=== PATIENT | male | born 1955 | race African-American/Black ===

== ENCOUNTER → 2020-07-26 11:02 | Outpatient (BNVA) | payer OTHER, SELFPAY | PROVIDERS: Visit Provider Urology | DX: R39.12 Poor urinary stream (principal); R33.9 Retention of urine, unspecified; M25.551 Pain in right hip | CPT/HCPCS: 99212 ==

== ENCOUNTER 2021-03-20 14:39 | Observation (INO) | payer OTHER, SELFPAY ==
--- NOTE | ~2021-03-20 | CT_ITS ---
EXAMINATION: CT ABDOMEN WITHOUT AND WITH CONTRAST CLINICAL INFORMATION: Liver lesion. Unable to do MRI. COMPARISON: 03/20/2021 TECHNIQUE: Multidetector volumetric imaging was performed through the abdomen before and after administration of 85 mL of Omnipaque 350 IV contrast. Three-phase liver protocol utilized. Sagittal and coronal reformatted images were obtained on the technologist's workstation. This CT examination was performed using dose optimization techniques as appropriate, variously including the following: *Automated exposure control *Adjustment of mA and/or kV according to patient size (this includes techniques or standardized protocols for targeted exams where dose is matched to indication/reason for exam; i.e. extremities or head) *Use of iterative reconstruction technique DLP: 977 mGy-cm. FINDINGS: Motion somewhat limits the evaluation. LUNG BASES: Bibasilar atelectasis. Tiny right pleural effusion noted. LIVER, GALLBLADDER, AND BILIARY TREE: The liver is normal in size, shape, and attenuation. There is mild central biliary ductal dilatation noted. The gallbladder is absent. Within the left lobe of the liver, there is redemonstration of a simple cyst measuring 5.1 cm. Within the right lobe of the liver in segment 7, redemonstration of the hypoattenuating lesion measuring 3.4 cm. The 4 contrast this measures approximately 5 Hounsfield units. While this is typical for a cyst, there is some peripheral nodular enhancement seen during the arterial phase. There is additional filling of contrast on the more delayed phase, suggestive of a hemangioma. No suspicious characteristics. Also noted during the arterial phase are multiple additional areas of arterial hyperenhancement throughout the liver, with the largest area measuring up to 3 cm centrally in segment 8, as seen on series 4 image 32. On the portal venous phase these blend with the adjacent liver parenchyma, suggesting transient hepatic attenuation difference. PANCREAS: Unremarkable. SPLEEN: Unremarkable. ADRENAL GLANDS: The right adrenal gland is unremarkable. Unchanged 2.2 cm lipid rich left adrenal adenoma. KIDNEYS AND URETERS: The kidneys are normal in size, shape, and attenuation. No hydronephrosis, hydroureter, or calculi seen. No perinephric stranding. GASTROINTESTINAL TRACT: The stomach is unremarkable. Normal caliber of the small bowel. There is no obstruction. No colonic wall thickening or inflammatory change. No free air or free fluid. ABDOMINAL WALL: No significant hernia is appreciated. LYMPH NODES: Normal. VASCULAR: Unremarkable. OSSEOUS STRUCTURES: No acute or suspicious osseous abnormality. Mild degenerative changes of the spine. CT/CT liver 3 phase IMPRESSION: Somewhat motion limited evaluation. That said, the lesion in question at the dome of the right lobe of the liver likely represents a hemangioma. There are additional areas of arterial hyperenhancement scattered throughout the liver which likely represent transient hepatic attenuation difference. Left hepatic cyst again noted. Left adrenal lipid rich adenoma.
--- NOTE | ~2021-03-20 | CT_ITS ---
EXAMINATION: CT ANGIOGRAM CHEST CLINICAL INFORMATION: Hypotensive. Question pneumonia. Question dissection. COMPARISON: None TECHNIQUE: Multiple axial images were obtained through the chest after the administration of 70 mL of Omnipaque 350 intravenous contrast. Extensive vascular post-processing including two-dimensional and three-dimensional reformatted images were created and reviewed on an independent workstation. This CT examination was performed using dose optimization techniques as appropriate, variously including the following: *Automated exposure control *Adjustment of mA and/or kV according to patient size (this includes techniques or standardized protocols for targeted exams where dose is matched to indication/reason for exam; i.e. extremities or head) *Use of iterative reconstruction technique DLP: 591 mGy-cm FINDINGS: Vascular: The thoracic aorta is tortuous but normal in caliber. No aneurysm or dissection is seen. Great vessels are normal. The pulmonary arteries appear patent. No large or central pulmonary embolism is seen. The abdominal aorta is normal in caliber. The celiac axis, SMA and JULIO C are patent. There is narrowing of the proximal celiac axis just beyond its origin, question related to the diaphragmatic pleura. There is an accessory right lower pole renal artery. There is a single left renal artery. Renal arteries are patent. The common, internal and external iliac and common femoral arteries are patent. The femoral bifurcations are patent. CHEST: The lungs are clear. No evidence of pneumonia is seen. The esophagus is slightly distended and filled with fluid. The heart does not appear enlarged. There is no pericardial effusion. There are no enlarged hilar or mediastinal lymph nodes. There is the thyroid gland is enlarged and heterogeneous in attenuation suggestive of a goiter. There is no pleural effusion or pleural thickening or pneumothorax. No chest wall mass is seen. Abdomen and pelvis: There is a large amount of stool in the distal colon suggestive of severe constipation. The left colon and sigmoid colon are slightly dilated measuring up to 5.5 cm. The proximal colon does not appear dilated. There is a mild wall thickening of the proximal colon questionable for mild colitis. This appears greatest and most irregular in the cecum and imaging follow-up to exclude a mass should be considered. The stomach and small bowel appears dilated and fluid-filled. No evidence of pneumatosis is seen. No mesenteric air or portal venous air is seen. The appendix is unremarkable. There is a 4 cm cyst in the left lobe of the liver. There is low-attenuation lesion in the dome of the right lobe of the liver measuring 2.2 x 3 cm not compatible with a simple cyst and difficult to characterize on arterial phase imaging only. The liver is otherwise unremarkable. The gallbladder has been removed. The pancreas is unremarkable. The spleen is unremarkable. There is a 1.4 x 2 cm left adrenal nodule. Hounsfield units postcontrast measure 44 which is indeterminate. The right adrenal gland is normal-appearing. There is a 1 cm low-attenuation lesion in the mid pole of the right kidney suggestive of a cyst. The kidneys are otherwise unremarkable. The bladder is not optimally distended. There appears to be diffuse bladder wall thickening. The prostate gland is enlarged and measures 4 x 5 cm. No hernia. No ascites. There are degenerative changes of the spine. CT/CT angio chest aorta IMPRESSION: No aneurysm or dissection is seen. 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 Small accessory right lower pole renal artery. CHEST: Enlarged thyroid goiter. No evidence of pneumonia. Slightly dilated fluid-filled esophagus. Abdomen and pelvis: Severe constipation/obstipation of the left colon and sigmoid colon which appear very dilated and filled with stool down to the rectum. Question mild thickening of the more proximal right colon and transverse colon or colitis. This does not appear dilated. The cecum demonstrates greatest wall thickening which appears slightly irregular and imaging follow-up to exclude a cecal mass is recommended. The stomach and small bowel also appear dilated and fluid-filled. 4 cm liver cyst. 2 x 3 cm lesion in the dome of the right lobe of the liver that is not compatible with a simple cyst. 1.4 x 2 cm indeterminate left adrenal nodule. Enlarged prostate gland. The bladder is not distended but the bladder wall appears thickened. Fleischner guidelines were followed.
--- NOTE | ~2021-03-20 | XR_ITS ---
EXAMINATION: XR SKULL CLINICAL INFORMATION: Pre-MRI. Check for metal. COMPARISON: None TECHNIQUE: 2 views of the skull were obtained. FINDINGS: There is a surgical plate and screws seen on the Antoni view projecting over the left zygoma and mandible region. The skull is otherwise unremarkable. Visualized paranasal sinuses are clear. There is a prominent occipital protuberance. XR/XR skull <4V IMPRESSION: Surgical plate and screws projecting over the left mandible/zygoma.
[2021-03-20 14:52] VITALS: BP 141/67; BP 67/39; PULSE 58; PULSE 88; RESP 18; TEMP 37; O2SAT 96; O2SAT 98; BMI 32.5
--- NOTE | 2021-03-20 15:08 | ECG_ITS ---
Test Reason : WEAKNESS Blood Pressure : / mmHG Vent. Rate : 060 BPM Atrial Rate : 060 BPM P-R Int : 178 ms QRS Dur : 096 ms QT Int : 492 ms P-R-T Axes : 059 021 -24 degrees QTc Int : 492 ms Normal sinus rhythm Nonspecific T wave abnormality Prolonged QT Abnormal ECG No previous ECGs available Referred By: Kaleb Ryan Electronically Signed By:Nelson Garcia
--- NOTE | 2021-03-20 15:14 | ED.GENADULT ---
HPI - General Adult General Chief complaint: General Medical Stated complaint: GENERAL WEAKNESS @ [facility] Time Seen by Provider: 03/20/21 15:04 Source: patient Mode of arrival: EMS History of Present Illness HPI narrative: this is 65 yo man presented c.p abdomina pain in the rt lower quadrant and hypotension,He staes that he felt lightheaded and [facility]Denies chest pain andominal pain Onset (ago): hour(s) (1) Location: abdomen Radiation: non-radiation Quality: aching Pain Consistency: constant Exacerbating factors: none Associated symptoms: denies other symptoms Related Data Previous Rx's Medication Instructions Recorded doxazosin 8 mg tablet 8 mg PO DAILY 90 Days #90 tab 04/01/20 celecoxib 200 mg capsule 200 mg PO DAILY 30 Days #30 cap 07/26/20 finasteride 5 mg tablet 5 mg PO DAILY 30 Days #30 tab 08/24/20 imipramine HCl 25 mg tablet 25 mg PO DAILY 30 Days #30 tab 11/29/20 bethanechol chloride 50 mg tablet 50 mg PO BID 90 Days #180 tab 02/14/21 Allergies Allergy/AdvReac Type Severity Reaction Status Date / Time No Known Allergies Allergy Verified 03/20/21 15:07 Review of Systems Review of Systems: Yes all other systems are reviewed and are negative ENT: Reports system reviewed and no additional complaints, except as documented Cardiovascular: Cardiovascular: Reports no additional cardiovascular complaints Gastrointestinal: Gastrointestinal: Denies diarrhea, Denies loose stools, Denies nausea and Denies vomiting Musculoskeletal: Musculoskeletal: Reports no additional musculoskeletal complaints Neurologic: Reports system reviewed and no additional complaints, except as documented [facility] Past Medical History Medical History Back pain Feeling of incomplete bladder emptying H/O urinary frequency Mood swings Neurogenic bladder Nocturia Prostate nodule Weak urinary stream Social History Social History Advance Directives: No Advance Directives Information Provided: No Physical Exam Vital Signs: Vital Signs: Last Vital Signs Temp 98.6 F 03/20/21 14:52 Pulse 58 03/20/21 14:52 Resp 18 03/20/21 14:52 BP 67/39 L 03/20/21 14:52 Pulse Ox 98 03/20/21 14:52 Oxygen Flow Rate 2 03/20/21 14:52 BMI result Body Mass Index 32.5 Const: General: cooperative, alert and awake Nutritional Appearance: average body habitus Orientation/consciousness: patient oriented x3 HENMT: Head: Yes normal to inspection Face and sinus: Yes normal facial exam Mouth: Normal oral and palatal mucosa present Throat: Yes posterior oropharynx normal Neck: Neck: Yes normal visual inspection and Yes full ROM Lymphatic: no lymphadenopathy noted Chest: Chest palpation & inspection: normal inspection of the chest Resp: Effort & Inspection: normal respiratory effort Auscultation: clear to auscultation bilaterally Cardio: Jugular venous distension: no JVD Rate: regular rate Rhythm: regular rhythm GI: Inspection: Yes normal to inspection Palpation (GI): Tenderness to palpation present (GI) in the RLQ Skin: General skin exam: no rashes or lesions noted and elasticity normal Rashes: no rashes Wounds: no wounds Neuro: General: patient oriented x3 Course Reevaluation(s) Reevaluation #1: to ct scan,fluids infusing Reevaluation #2: better ct pending at this time ,I am off shift now case signed off to Dr ARMENDARIZ Medical Decision Making [facility] Narrative Medical decision making narrative: This is a 65 years old man presented hypotensive and with abdominal pain he has no chest pain, we are going to fluid resuscitate the patient with IV fluids ;because of the abdominal pain we are going to get IV contrast CT emergently Differential Diagnosis Differential Diagnosis: perforated viscous/AAA/sepsis Lab Data Result diagrams: 03/20/21 15:23 03/20/21 15:23 Labs: Lab Results 03/20/21 03/20/21 03/20/21 Range/Units 15:23 15:23 15:23 WBC 13.6 H (4.8-10.8) X10*3/uL RBC 4.71 (4.60-5.80) X10*6/uL Hgb 12.4 L (14.0-18.0) g/dl Hct 38.6 L (42.0-52.0) % MCV 82.0 (80.0-98.0) fL MCH 26.3 L (27.0-33.0) pg MCHC 32.1 (31.0-36.0) g/dl RDW 15.0 (11.0-16.0) % Plt Count 183 (160-400) X10*3/uL MPV 11.0 (9.4-12.4) fL Immature Gran % (Auto) 0.5 H (0.0-0.4) % Neut % (Auto) 70.2 (45-73) % Lymph % (Auto) 22.0 (20-40) % [place] % (Auto) 6.7 (2-11) % Eos % (Auto) 0.4 (0-4) % Baso % (Auto) 0.2 (0-2) % Lymph # (Auto) 3.0 (1.2-4.9) X10*3/uL [place] # (Auto) 0.9 (0.1-1.2) X10*3/uL Eos # (Auto) 0.1 (0.0-0.4) X10*3/uL Baso # (Auto) 0.0 (0.0-0.2) X10*3/uL Abs Immat Gran (auto) 0.07 H (0.00-0.03) X10*3/uL Absolute Neuts (auto) 9.6 H (2.0-8.3) x10*3/uL Absolute Nucleated RBC 0.000 (0.0-0.012) X10*3/uL Nucleated RBC % (auto) 0.0 (0.0-0.2) /100WBC PT 14.2 H (9.9-13.0) SEC INR 1.2 H (0.9-1.1) APTT 29.9 (24.1-38.0) SEC Sodium 143 (135-145) mmol/L Potassium 3.9 (3.3-5.1) mmol/L Chloride 111 H (96-108) mmol/L Carbon Dioxide 23 (22-29) mmol/L Anion Gap 13 (12-20) BUN 21 H (9-16) mg/dL Creatinine 1.74 H (0.5-1.4) mg/dL Estim Creat Clear Calc 54.6 Estimated GFR 40 Random Glucose 144 H (60-115) mg/dL Lactic Acid (0.5-2.0) mmol/L Calcium 8.7 (8.4-10.2) mg/dL Total Bilirubin 0.8 (0.0-1.0) mg/dL AST 69 H (5-37) U/L ALT 85 H (0-40) U/L Alkaline Phosphatase 136 H (39-117) U/L Troponin I High Sens (<3.5-35.0) ng/L Total Protein 6.3 L (6.5-8.0) g/dL Albumin 3.6 (3.5-5.0) g/dL 03/20/21 03/20/21 Range/Units 15:23 15:23 WBC (4.8-10.8) X10*3/uL RBC (4.60-5.80) X10*6/uL Hgb (14.0-18.0) g/dl Hct (42.0-52.0) % MCV (80.0-98.0) fL MCH (27.0-33.0) pg MCHC (31.0-36.0) g/dl RDW (11.0-16.0) % Plt Count (160-400) X10*3/uL MPV (9.4-12.4) fL Immature Gran % (Auto) (0.0-0.4) % Neut % (Auto) (45-73) % Lymph % (Auto) (20-40) % [place] % (Auto) (2-11) % Eos % (Auto) (0-4) % Baso % (Auto) (0-2) % Lymph # (Auto) (1.2-4.9) X10*3/uL [place] # (Auto) (0.1-1.2) X10*3/uL Eos # (Auto) (0.0-0.4) X10*3/uL Baso # (Auto) (0.0-0.2) X10*3/uL Abs Immat Gran (auto) (0.00-0.03) X10*3/uL Absolute Neuts (auto) (2.0-8.3) x10*3/uL Absolute Nucleated RBC (0.0-0.012) X10*3/uL Nucleated RBC % (auto) (0.0-0.2) /100WBC PT (9.9-13.0) SEC INR (0.9-1.1) APTT (24.1-38.0) SEC Sodium (135-145) mmol/L Potassium (3.3-5.1) mmol/L Chloride (96-108) mmol/L Carbon Dioxide (22-29) mmol/L Anion Gap (12-20) BUN (9-16) mg/dL Creatinine (0.5-1.4) mg/dL Estim Creat Clear Calc Estimated GFR Random Glucose (60-115) mg/dL Lactic Acid 2.6 H* (0.5-2.0) mmol/L Calcium (8.4-10.2) mg/dL Total Bilirubin (0.0-1.0) mg/dL AST (5-37) U/L ALT (0-40) U/L Alkaline Phosphatase (39-117) U/L Troponin I High Sens < 3.5 (<3.5-35.0) ng/L Total Protein (6.5-8.0) g/dL Albumin (3.5-5.0) g/dL ECG Data Attestation: I personally reviewed and interpreted this ECG as follows: Pacemaker model: NSR 60 no ischemic changes Discharge Plan Discharge Clinical Impression: Abdominal pain, Hypotension Prescriptions: No Action doxazosin 8 mg tablet 8 mg PO DAILY 90 Days Qty: 90 RF: 2 finasteride 5 mg tablet 5 mg PO DAILY 30 Days Qty: 30 RF: 5 imipramine HCl 25 mg tablet 25 mg PO DAILY 30 Days Qty: 30 RF: 6 bethanechol chloride 50 mg tablet 50 mg PO BID 90 Days Qty: 180 RF: 3 celecoxib 200 mg capsule 200 mg PO DAILY 30 Days Qty: 30 RF: 0
[2021-03-20 15:30] LABS: MANUAL DIFF FLAG NO
[2021-03-20 15:31] LABS: Basophils Percent Auto 0.2 % (0-2); Eosinophils Absolute Auto 0.1 X10*3/uL (0.0-0.4); Eosinophils Percent Auto 0.4 % (0-4); Hematocrit 38.6 % (42.0-52.0); Hemoglobin 12.4 g/dl (14.0-18.0); Imm Gran Abs Auto 0.07 X10*3/uL (0.00-0.03); Imm Gran Pct Auto 0.5 % (0.0-0.4); Mean Corpuscular HGB Conc 32.1 g/dl (31.0-36.0); Mean Corpuscular Hemoglobin 26.3 pg (27.0-33.0); Monocytes Absolute Auto 0.9 X10*3/uL (0.1-1.2); Monocytes Percent Auto 6.7 % (2-11); Neutrophils Absolute Auto 9.6 x10*3/uL (2.0-8.3); Neutrophils Percent Auto 70.2 % (45-73); Platelet Count 183 X10*3/uL (160-400); Red Blood Count 4.71 X10*6/uL (4.60-5.80); White Blood Count 13.6 X10*3/uL (4.8-10.8)
[2021-03-20 15:38] LABS: INTERNATIONAL NORM RATIO 1.2 (0.9-1.1); Prothrombin Time 14.2 SEC (9.9-13.0)
[2021-03-20 15:41] LABS: Partial Thromboplastin Time 29.9 SEC (24.1-38.0)
[2021-03-20 15:45] LABS: Lactic Acid 2.6 mmol/L (0.5-2.0)
[2021-03-20 15:46] LABS: Alanine Aminotransferase 85 U/L (0-40); Albumin Level 3.6 g/dL (3.5-5.0); Alkaline Phosphatase 136 U/L (39-117); Anion Gap 13 (12-20); Aspartate Amino Transferase 69 U/L (5-37); Bilirubin Total 0.8 mg/dL (0.0-1.0); Blood Urea Nitrogen 21 mg/dL (9-16); Calcium 8.7 mg/dL (8.4-10.2); Carbon Dioxide 23 mmol/L (22-29); Chloride 111 mmol/L (96-108); Creatinine Clr Calc Pharmacy 54.6; Estimated Glomerular Filt Rate 40; Glucose Random 144 mg/dL (60-115); Potassium 3.9 mmol/L (3.3-5.1); Sodium 143 mmol/L (135-145); Total Protein 6.3 g/dL (6.5-8.0)
[2021-03-20 15:50] LABS: Troponin-I High Sensitivity < 3.5 ng/L (<3.5-35.0)
[2021-03-20] MEDS: iohexoL 350 MG/ML 100 ML INFUS..BTL IV (15:51)
[2021-03-20] MEDS: 0.9 % Sodium Chloride 1,000 ML 999 ML IVCONT ×3 (16:10)
--- NOTE | 2021-03-20 16:57 | PHA.MEDREC ---
Addendum entered by Kelin Monroy RPh 03/20/21 19:39: Contacted [facility] to confirm last dose of Clozaril. The medication orginal fax was sent from [facility] not from [facility] therefore was not updated. Patient takes clozaril 350 mg at bedtime only, Congetin 0.5 mg BID, and imipramine 25 mg at bedtime. Patient no longer takes gabapentin, doxazosin, or finasteride. Original Note: Pharmacy Consult ? Medication Reconciliation Pharmacy has completed the medication reconciliation. Patient has a medication list from [facility] [employer]. List matched with claim history expect Cogentin. List reports 1 mg BID, claim history report 0.5 mg BID. Kelin Monroy, PharmD
[2021-03-20] MEDS: 0.9 % Sodium Chloride 1,000 ML 999 ML IV (17:19)
[2021-03-20] MEDS: Sodium Phosphate,Mono-Dibasic 133 ML ENEMA PR (17:20)
[2021-03-20] MEDS: Piperacillin Sodium/Tazobactam 4.5 GM in 0.9 % Sodium Chloride 100 ML IV (17:20)
[2021-03-20 17:23] VITALS: BP 81/49; PULSE 70; RESP 16; O2SAT 94
[2021-03-20 17:27] LABS: Reflex Lactate? Lactic Acid Added
[2021-03-20 17:28] LABS: COVID-19 Test Negative (Negative); IDNOW Serial# 9DD0AD1C
--- NOTE | 2021-03-20 17:42 | ED.GENADULT ---
HPI - General Adult General Chief complaint: General Medical Stated complaint: GENERAL WEAKNESS @ [facility] Time Seen by Provider: 03/20/21 15:04 Source: patient Mode of arrival: EMS History of Present Illness Location: abdomen Quality: aching Exacerbating factors: none Associated symptoms: denies other symptoms Related Data Home Medications Medication Instructions Recorded Confirmed acetaminophen 325 mg tablet 650 mg PO Q6H PRN 03/20/21 03/20/21 albuterol sulfate 90 mcg/actuation 2 puff INHALATION Q4H PRN 03/20/21 03/20/21 aerosol inhaler atenolol 50 mg tablet 1 tab PO DAILY 03/20/21 03/20/21 atorvastatin 10 mg tablet 1 tab PO DAILY 03/20/21 03/20/21 benztropine 0.5 mg tablet 1 mg PO BID 03/20/21 03/20/21 clozapine 100 mg tablet 300 mg PO BEDTIME 03/20/21 03/20/21 clozapine 50 mg tablet 50 tab PO BID 03/20/21 03/20/21 divalproex 250 mg tablet,delayed 1 tab PO BEDTIME 03/20/21 03/20/21 release divalproex 500 mg tablet,delayed 1 tab PO QPM 03/20/21 03/20/21 release doxazosin 8 mg tablet 8 mg PO BEDTIME 03/20/21 03/20/21 finasteride 5 mg tablet 5 mg PO BEDTIME 03/20/21 03/20/21 gabapentin 400 mg capsule 400 mg PO BID 03/20/21 03/20/21 gabapentin 400 mg capsule 400 mg PO DAILY PRN 03/20/21 03/20/21 lidocaine 3 % topical cream 1 appl TOPICAL TID 03/20/21 03/20/21 lisinopril 40 mg tablet 1 tab PO DAILY 03/20/21 03/20/21 mirabegron 25 mg tablet,extended 25 mg PO DAILY 03/20/21 03/20/21 release 24 hr (Myrbetriq) polyethylene glycol 3350 17 17 g PO DAILY 03/20/21 03/20/21 gram/dose oral powder tiotropium bromide 18 mcg capsule 1 cap INHALATION DAILY 03/20/21 03/20/21 with inhalation device (Spiriva with HandiHaler) Previous Rx's Medication Instructions Recorded celecoxib 200 mg capsule 200 mg PO DAILY 30 Days #30 cap 07/26/20 bethanechol chloride 50 mg tablet 50 mg PO BID 90 Days #180 tab 02/14/21 Allergies Allergy/AdvReac Type Severity Reaction Status Date / Time No Known Allergies Allergy Verified 03/20/21 15:07 [facility] Past Medical History Medical History Back pain Feeling of incomplete bladder emptying H/O urinary frequency Mood swings Neurogenic bladder Nocturia Prostate nodule Weak urinary stream Social History Social History Advance Directives: No Advance Directives Information Provided: No Physical Exam Vital Signs: Vital Signs: Last Vital Signs Temp 98.6 F 03/20/21 14:52 Pulse 70 03/20/21 17:23 Resp 16 03/20/21 17:23 BP 81/49 L 03/20/21 17:23 Pulse Ox 94 03/20/21 17:23 Oxygen Flow Rate 2 03/20/21 14:52 BMI result Body Mass Index 32.5 Medical Decision Making MDM Narrative Medical decision making narrative: CT scan of the abdomen did not show any acute evidence of abdominal aortic aneurysm. No gross PE observed. Lots of constipation. Attempted manual disimpaction. There is only minimal stool in the vault. An enema was given. Patient given multiple L of fluid. Blood pressure improved to 90/60. Will admit patient for further evaluation further hydration. Lab Data Result diagrams: 03/20/21 15:23 03/20/21 15:23 Labs: Lab Results 03/20/21 03/20/21 03/20/21 Range/Units 15:23 15:23 15:23 WBC 13.6 H (4.8-10.8) X10*3/uL RBC 4.71 (4.60-5.80) X10*6/uL Hgb 12.4 L (14.0-18.0) g/dl Hct 38.6 L (42.0-52.0) % MCV 82.0 (80.0-98.0) fL MCH 26.3 L (27.0-33.0) pg MCHC 32.1 (31.0-36.0) g/dl RDW 15.0 (11.0-16.0) % Plt Count 183 (160-400) X10*3/uL MPV 11.0 (9.4-12.4) fL Immature Gran % (Auto) 0.5 H (0.0-0.4) % Neut % (Auto) 70.2 (45-73) % Lymph % (Auto) 22.0 (20-40) % [place] % (Auto) 6.7 (2-11) % Eos % (Auto) 0.4 (0-4) % Baso % (Auto) 0.2 (0-2) % Lymph # (Auto) 3.0 (1.2-4.9) X10*3/uL [place] # (Auto) 0.9 (0.1-1.2) X10*3/uL Eos # (Auto) 0.1 (0.0-0.4) X10*3/uL Baso # (Auto) 0.0 (0.0-0.2) X10*3/uL Abs Immat Gran (auto) 0.07 H (0.00-0.03) X10*3/uL Absolute Neuts (auto) 9.6 H (2.0-8.3) x10*3/uL Absolute Nucleated RBC 0.000 (0.0-0.012) X10*3/uL Nucleated RBC % (auto) 0.0 (0.0-0.2) /100WBC PT 14.2 H (9.9-13.0) SEC INR 1.2 H (0.9-1.1) APTT 29.9 (24.1-38.0) SEC Sodium 143 (135-145) mmol/L Potassium 3.9 (3.3-5.1) mmol/L Chloride 111 H (96-108) mmol/L Carbon Dioxide 23 (22-29) mmol/L Anion Gap 13 (12-20) BUN 21 H (9-16) mg/dL Creatinine 1.74 H (0.5-1.4) mg/dL Estim Creat Clear Calc 54.6 Estimated GFR 40 Random Glucose 144 H (60-115) mg/dL Lactic Acid (0.5-2.0) mmol/L Calcium 8.7 (8.4-10.2) mg/dL Total Bilirubin 0.8 (0.0-1.0) mg/dL AST 69 H (5-37) U/L ALT 85 H (0-40) U/L Alkaline Phosphatase 136 H (39-117) U/L Troponin I High Sens (<3.5-35.0) ng/L Total Protein 6.3 L (6.5-8.0) g/dL Albumin 3.6 (3.5-5.0) g/dL 03/20/21 03/20/21 Range/Units 15:23 15:23 WBC (4.8-10.8) X10*3/uL RBC (4.60-5.80) X10*6/uL Hgb (14.0-18.0) g/dl Hct (42.0-52.0) % MCV (80.0-98.0) fL MCH (27.0-33.0) pg MCHC (31.0-36.0) g/dl RDW (11.0-16.0) % Plt Count (160-400) X10*3/uL MPV (9.4-12.4) fL Immature Gran % (Auto) (0.0-0.4) % Neut % (Auto) (45-73) % Lymph % (Auto) (20-40) % [place] % (Auto) (2-11) % Eos % (Auto) (0-4) % Baso % (Auto) (0-2) % Lymph # (Auto) (1.2-4.9) X10*3/uL [place] # (Auto) (0.1-1.2) X10*3/uL Eos # (Auto) (0.0-0.4) X10*3/uL Baso # (Auto) (0.0-0.2) X10*3/uL Abs Immat Gran (auto) (0.00-0.03) X10*3/uL Absolute Neuts (auto) (2.0-8.3) x10*3/uL Absolute Nucleated RBC (0.0-0.012) X10*3/uL Nucleated RBC % (auto) (0.0-0.2) /100WBC PT (9.9-13.0) SEC INR (0.9-1.1) APTT (24.1-38.0) SEC Sodium (135-145) mmol/L Potassium (3.3-5.1) mmol/L Chloride (96-108) mmol/L Carbon Dioxide (22-29) mmol/L Anion Gap (12-20) BUN (9-16) mg/dL Creatinine (0.5-1.4) mg/dL Estim Creat Clear Calc Estimated GFR Random Glucose (60-115) mg/dL Lactic Acid 2.6 H* (0.5-2.0) mmol/L Calcium (8.4-10.2) mg/dL Total Bilirubin (0.0-1.0) mg/dL AST (5-37) U/L ALT (0-40) U/L Alkaline Phosphatase (39-117) U/L Troponin I High Sens < 3.5 (<3.5-35.0) ng/L Total Protein (6.5-8.0) g/dL Albumin (3.5-5.0) g/dL Discharge Plan Discharge Clinical Impression: Abdominal pain, Hypotension Prescriptions: No Action bethanechol chloride 50 mg tablet 50 mg PO BID 90 Days Qty: 180 RF: 3 acetaminophen 325 mg Tablet 650 mg PO Q6H PRN (Reason: Pain) RF: 0 benztropine 0.5 mg tablet 1 mg PO BID RF: 0 divalproex 250 mg tablet,delayed release (DR/EC) 1 tab PO BEDTIME RF: 0 atorvastatin 10 mg tablet 1 tab PO DAILY RF: 0 clozapine 100 mg tablet 300 mg PO BEDTIME RF: 0 gabapentin 400 mg capsule 400 mg PO BID RF: 0 gabapentin 400 mg capsule 400 mg PO DAILY PRN (Reason: Anxiety) RF: 0 divalproex 500 mg tablet,delayed release (DR/EC) 1 tab PO QPM RF: 0 polyethylene glycol 3350 17 gram/dose powder 17 g PO DAILY RF: 0 albuterol sulfate 90 mcg/actuation Hfa Aerosol Inhaler 2 puff INHALATION Q4H PRN (Reason: Wheezing) RF: 0 lisinopril 40 mg tablet 1 tab PO DAILY RF: 0 atenolol 50 mg tablet 1 tab PO DAILY RF: 0 Spiriva with HandiHaler 18 mcg capsule, w/inhalation device 1 cap inhalation DAILY RF: 0 clozapine 50 mg tablet 50 tab PO BID RF: 0 Myrbetriq 25 mg Tablet Extended Release 24 Hr 25 mg PO DAILY RF: 0 lidocaine 3 % Cream 1 appl TOPICAL TID RF: 0 doxazosin 8 mg tablet 8 mg PO BEDTIME RF: 0 finasteride 5 mg tablet 5 mg PO BEDTIME RF: 0 celecoxib 200 mg capsule 200 mg PO DAILY 30 Days Qty: 30 RF: 0
[2021-03-20 18:40] LABS: ~Lactic Acid-LAB USE ONLY 2.8 mmol/L (0.5-2.0)
--- NOTE | 2021-03-20 18:54 | P.HPHOSP_ITS ---
History of Present Illness Date of Service: 03/20/21 Attending physician on admission: Lesly Rush Chief Complaint: Abdominal pain, dehydration, LAVINIA, softer blood pressure. 65-year-old male came to the hospital because of Abdominal pain, dehydration, LAVINIA, softer blood pressure. his poor historian: Says that he having abdominal pain for almost 2-3 weeks,also unclear when he had last bowel movement says the last bowel movement was yesterday , also has dizziness today as per the patient. patient was given IV fluids boluses as well as enema in the ED: Patient had passed small bowel movement after that patient says his pain is slightly better than before. has dry cough. Denies any new complaint of chest pain or shortness of breath or fever or chills or nausea or vomiting Denies any weakness or numbness Or headache or blurry vision. social history: Uses cocaine on and off last use was 5 days ago. Smokes 1-2 packs a day from last 10 years. denies any alcohol use. past medical history: Hypertension, cholesterol, possible copd. also on psych meds including clozapine. History of urinary retention. Review of Systems Review of Systems: As above. Yes all other systems are reviewed and are negative [facility] History Back pain Feeling of incomplete bladder emptying H/O urinary frequency Mood swings Neurogenic bladder Nocturia Prostate nodule Weak urinary stream Pertinent family history: Denies any family medical history Social History Patient Tobacco Use Status: Never used Tobacco Tobacco use type: Cigarette Cigarettes Per Day: 4 Second Hand Smoke Exposure: No service: No Current occupational status: disabled Meds Allergies Allergy/AdvReac Type Severity Reaction Status Date / Time No Known Allergies Allergy Verified 03/20/21 15:07 Active Medications: Current Medications Albuterol Sulfate (Albuterol Sulfate 90 Mcg 8 Gm Inhaler) 2 puff INHALE Q4H PRN PRN Reason: Wheezing Atenolol (Atenolol 50 Mg Tablet) 50 mg PO DAILY [facility]; Protocol Atorvastatin Calcium (Atorvastatin Calcium 10 Mg Tablet) 10 mg PO DAILY [facility] Benztropine Mesylate (Benztropine Mesylate 1 Mg Tablet) 1 mg PO BID [facility] Clozapine (Clozapine 100 Mg Tablet) 2,500 mg PO BID [facility] Clozapine (Clozapine 100 Mg Tablet) 300 mg PO BEDTIME [facility] Divalproex Sodium (Divalproex Sodium 250 Mg Tablet.) 250 mg PO BEDTIME [facility] Divalproex Sodium (Divalproex Sodium 500 Mg Tablet.) 500 mg PO QPM [facility] Docusate Sodium (Docusate Sodium 100 Mg Capsule) 100 mg PO BID [facility] Doxazosin Mesylate (Doxazosin Mesylate 2 Mg Tablet) 8 mg PO BEDTIME [facility]; Protocol Finasteride (Finasteride 5 Mg Tablet) 5 mg PO BEDTIME [facility] Gabapentin (Gabapentin 400 Mg Capsule) 400 mg PO BID [facility] Gabapentin (Gabapentin 400 Mg Capsule) 400 mg PO DAILY PRN PRN Reason: Anxiety Heparin Sodium (Porcine) (Heparin Sodium,Porcine 5,000 Unit/Ml Vial) 5,000 unit SUBCUT Q8H [facility] Lactated Ringer's (Lr) 1,000 mls @ 100 mls/hr IVCONT .Q10H [facility] Lisinopril (Lisinopril 40 Mg Tablet) 40 mg PO DAILY [facility]; Protocol Mirabegron (Mirabegron 25 Mg Tab.Er.24h) 25 mg PO DAILY [facility] Non-Formulary Medication (Bethanechol Chloride) 50 mg PO BID [facility] Non-Formulary Medication (Lidocaine) 1 appl TOPICAL TID [facility] Pharmacy Consult (Consult Rx Perform Med Rec) 1 each MISCELLANE ONCE PRN PRN Reason: Consult order Polyethylene Glycol (Polyethylene Glycol 3350 17 Gm Powd.Pack) 17 gm PO BID [facility] Tiotropium [place] (Tiotropium [place] 18 Mcg Cap.W.Dev) puff INHALE DAILY [facility] Home Medications Medication Instructions Recorded Confirmed Last Taken Type acetaminophen 325 mg tablet 650 mg PO Q6H PRN 03/20/21 03/20/21 Unknown History albuterol sulfate 90 mcg/actuation 2 puff INHALATION Q4H PRN 03/20/21 03/20/21 Unknown History aerosol inhaler atenolol 50 mg tablet 1 tab PO DAILY 03/20/21 03/20/21 Unknown History atorvastatin 10 mg tablet 1 tab PO DAILY 03/20/21 03/20/21 Unknown History benztropine 0.5 mg tablet 0.5 mg PO BID 03/20/21 03/20/21 Unknown History clozapine 100 mg tablet 300 mg PO BEDTIME 03/20/21 03/20/21 Unknown History clozapine 50 mg tablet 50 mg PO BEDTIME 03/20/21 03/20/21 Unknown History divalproex 250 mg tablet,delayed 1 tab PO BEDTIME 03/20/21 03/20/21 Unknown History release divalproex 500 mg tablet,delayed 1 tab PO QPM 03/20/21 03/20/21 Unknown History release hydroxyzine HCl 25 mg tablet 25 mg PO QID PRN 03/20/21 03/20/21 Unknown History ibuprofen 400 mg tablet 400 mg PO TID PRN 03/20/21 03/20/21 Unknown History imipramine HCl 25 mg tablet 1 tab PO DAILY 03/20/21 03/20/21 Unknown History lidocaine 3 % topical cream 1 appl TOPICAL TID 03/20/21 03/20/21 Unknown History polyethylene glycol 3350 17 17 g PO DAILY 03/20/21 03/20/21 Unknown History gram/dose oral powder tiotropium bromide 18 mcg capsule 1 cap INHALATION DAILY 03/20/21 03/20/21 Unknown History with inhalation device (Spiriva with HandiHaler) Physical Exam Vital Signs and Narrative: Vital Signs: Last Vital Signs Temp 98.6 F 03/20/21 14:52 Pulse 70 03/20/21 17:23 Resp 16 03/20/21 17:23 BP 81/49 L 03/20/21 17:23 Pulse Ox 94 03/20/21 17:23 Oxygen Flow Rate 2 03/20/21 14:52 BMI result Body Mass Index 32.5 Physical exam: Appearance: Alert.? Oriented X3.? not in distress. wants We wants to sleep says I he did not sleep last night.? Eyes: Pupils equal, round and reactive to light.? Sclera nonicteric.? ENT: Pharynx normal.? Moist mucous membranes. cvs: rrr, [id number] , no murmur res: clear to auscultation ,no rhonchii or wheezing abd: no rebound or guarding , mild diffuse abd pain seems improving, bs present. ext pulses present , no cyanosis. neuro: axo3 , nonfocal. Results Labs CBC and Chem 7: 03/21/21 05:28 03/21/21 05:28 Labs: Laboratory Results - last 24 hr 03/20/21 03/20/21 03/20/21 15:23 15:23 15:23 MCV 82.0 MCH 26.3 L MCHC 32.1 RDW 15.0 Plt Count 183 MPV 11.0 Immature Gran % (Auto) 0.5 H Neut % (Auto) 70.2 Lymph % (Auto) 22.0 [place] % (Auto) 6.7 Eos % (Auto) 0.4 Baso % (Auto) 0.2 Lymph # (Auto) 3.0 [place] # (Auto) 0.9 Eos # (Auto) 0.1 Baso # (Auto) 0.0 Abs Immat Gran (auto) 0.07 H Absolute Neuts (auto) 9.6 H Absolute Nucleated RBC 0.000 Nucleated RBC % (auto) 0.0 PT 14.2 H INR 1.2 H APTT 29.9 Anion Gap 13 Estim Creat Clear Calc 54.6 Estimated GFR 40 Random Glucose 144 H Lactic Acid Lactic Acid Fup @ 2Hr Calcium 8.7 Total Bilirubin 0.8 AST 69 H ALT 85 H Alkaline Phosphatase 136 H Troponin I High Sens Total Protein 6.3 L Albumin 3.6 03/20/21 03/20/21 03/20/21 15:23 15:23 18:15 MCV MCH MCHC RDW Plt Count MPV Immature Gran % (Auto) Neut % (Auto) Lymph % (Auto) [place] % (Auto) Eos % (Auto) Baso % (Auto) Lymph # (Auto) [place] # (Auto) Eos # (Auto) Baso # (Auto) Abs Immat Gran (auto) Absolute Neuts (auto) Absolute Nucleated RBC Nucleated RBC % (auto) PT INR APTT Anion Gap Estim Creat Clear Calc Estimated GFR Random Glucose Lactic Acid 2.6 H* Lactic Acid Fup @ 2Hr 2.8 H* Calcium Total Bilirubin AST ALT Alkaline Phosphatase Troponin I High Sens < 3.5 Total Protein Albumin Imaging Radiologist's Impressions: Impressions Chest CTA 03/20/21 15:56 IMPRESSION: No aneurysm or dissection is seen. 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 Small accessory right lower pole renal artery. CHEST: Enlarged thyroid goiter. No evidence of pneumonia. Slightly dilated fluid-filled esophagus. Abdomen and pelvis: Severe constipation/obstipation of the left colon and sigmoid colon which appear very dilated and filled with stool down to the rectum. Question mild thickening of the more proximal right colon and transverse colon or colitis. This does not appear dilated. The cecum demonstrates greatest wall thickening which appears slightly irregular and imaging follow-up to exclude a cecal mass is recommended. The stomach and small bowel also appear dilated and fluid-filled. 4 cm liver cyst. 2 x 3 cm lesion in the dome of the right lobe of the liver that is not compatible with a simple cyst. 1.4 x 2 cm indeterminate left adrenal nodule. Enlarged prostate gland. The bladder is not distended but the bladder wall appears thickened. Fleischner guidelines were followed. Assessment and Plan (1) Abdominal pain: Status: Acute (2) Urinary retention with incomplete bladder emptying: Status: Acute 65-year-old male multiple comorbidities including hypertension, hyperlipidemia, possible COPD, urinary retention, urinary retention History- came to the hospital because of dehydration/constipation. 1. Abdominal pain: Possible related to constipation continue IV fluids avoid medications that can cause constipation specially opioids. 2. Hypertension: hold blood pressure medications for today, consider starting in the morning if blood pressure improves. 3. Hyperlipidemia: continue statin. 4. COPD: Continue home medications. 5. ? psych dis : patient is on clozapine as well as divalproex: please check clozapine levels in the morning, monitor CBC. 6. has mild leukocytosis: No fever, no urinary complaints, imaging study for chest and abdomen is negative except constipation. get UA avoid antibiotic unless patient condition changes with any fever or any new sy mptoms. 7. Patient has mild elevated LFTs and There is a 4 cm cyst in the left lobe of the liver. There is low-attenuation lesion in the dome of the right lobe of the liver measuring 2.2 x 3 cm not compatible with a simple cyst and difficult to characterize on arterial phase imaging only.? moniter lft's added Gi eval for above. 8.lavinia : received fluid in the ED: Blood pressure seems improving, does not feel much dizzy now. lactic acidosis Probably related to dehydration, continue to monitor continue IV fluid. bmp in am. 9 . hx off urinary retention: Continue doxazosin. 10. history of cocaine use: urine drug screen care team evaluation in the morning. DVT prophylaxis: SubQ heparin Above management discussed with the patient in detail including IV fluid use and abdominal pain and laxative use, code status: Patient understand above and in agreement with the above plan, time spent 70 minute. Quality Stroke Does the patient have a stroke diagnosis?: No VTE Prior VTE?: No VTE Risk Level:: Medical - moderate - high VTE Device Contraindication: N/A - Device Ordered VTE Drug Contraindication: N/A - Med Ordered
--- NOTE | 2021-03-20 20:06 | PC.NURSE ---
pt moved to room #5 for admission orders. pt confused at times and pulled out one IV. bleeding controlled. Pt requesting to eat and c/o i haven't eaten all day. . Report given to on-coming admission nurse.
[2021-03-20 20:18] LABS: Reflex Lactate? 2 Y
[2021-03-20 20:26] LABS: Appearance Urine CLEAR; Color Urine DK YELLOW; Glucose Urine UA NEG (NEG); Leukocyte Esterase Urine NEG (NEG); Nitrite Urine NEG (NEG); PH 6.5 (5.0-8.0); Specific Gravity - Urine <= 1.005 (1.005-1.025); Urine Blood NEG (NEG); Urine Ketones NEG (NEG); Urine Protein TRACE MG/DL (NEG-TRACE)
[2021-03-20 20:28] LABS: Amphetamine Screen Urine Not Detected (Not Detect); Barbiturates, Urine Not Detected (Not Detect); Benzodiazepines Screen Urine Not Detected (Not Detect); Cannabinoid Screen Urine Not Detected (Not Detect); Cocaine Screen Urine POSITIVE (Not Detect); Fentanyl, urine Not Detected (Not Detect); Opiate Screen Urine Not Detected (Not Detect); Phencyclidine Screen Urine Not Detected (Not Detect)
[2021-03-20 20:30] LABS: Lactic Acid 1.9 mmol/L (0.5-2.0)
[2021-03-20 21:30] LABS: RBC Urine 0-2 /HPF (0); Squamous Epithelial Cell Urine TRACE /LPF; WBC Urine 0-2 /HPF (0-4)
[2021-03-20 21:39] VITALS: BP 123/86; PULSE 75; RESP 16; TEMP 36.4; O2SAT 97
[2021-03-20] MEDS: Lactated Ringers 1,000 ML 100 ML IVCONT (21:47)
[2021-03-20] MEDS: Heparin Sodium,Porcine 5,000 UNIT/ML VIAL 5000 UNIT SUBCUT (22:13)
[2021-03-20 22:24] VITALS: BP 124/84; PULSE 73; RESP 17; O2SAT 98
--- NOTE | 2021-03-20 22:31 | PC.NURSE ---
Addendum entered by Yazmin Turner RN 03/20/21 22:33: Patient has no diet order, hospitalist made aware. Original Note: This nurse took over patient's care at 2030, patient alert, oriented to self, place, vague on time. Pt reporting feeling tired, wants to sleep, denies pain or discomfort at this time. Vss.
[2021-03-20 22:57] VITALS: BP 135/82; PULSE 75; RESP 17; TEMP 35.1; O2SAT 100
[2021-03-20] MEDS: Bethanechol Chloride 25 MG TABLET 50 MG PO (23:41)
[2021-03-20] MEDS: Benztropine Mesylate 0.5 MG TABLET PO (23:41)
[2021-03-20] MEDS: polyethylene glycoL 3350 17 GM POWD.PACK PO (23:42)
[2021-03-20] MEDS: cloZAPine 100 MG TABLET 300 MG PO (23:42)
[2021-03-20] MEDS: Docusate Sodium 100 MG CAPSULE PO (23:42)
[2021-03-20] MEDS: Divalproex Sodium 250 MG TABLET.DR 750 MG PO (23:42)
[2021-03-20] MEDS: 0.9 % Sodium Chloride Flush 3 ML SYRINGE IVFLUSH (23:43)
[2021-03-20] MEDS: cloZAPine 25 MG TABLET 50 MG PO (23:49)
[2021-03-20 23:52] VITALS: BMI 32.5
[2021-03-21] VITALS (8 sets, daily range): BP systolic 109–136; BP diastolic 70–86; PULSE 66–81; RESP 16–18; TEMP 36.1–37; O2SAT 95–99
[2021-03-21] MEDS: Heparin Sodium,Porcine 5,000 UNIT/ML VIAL 5000 UNIT SUBCUT ×3 (04:46→18:36)
[2021-03-21] MEDS: Lactated Ringers 1,000 ML 100 ML IVCONT (04:46)
[2021-03-21 05:43] LABS: Hematocrit 40.3 % (42.0-52.0); Hemoglobin 12.7 g/dl (14.0-18.0); Mean Corpuscular HGB Conc 31.5 g/dl (31.0-36.0); Mean Corpuscular Hemoglobin 25.8 pg (27.0-33.0); Mean Corpuscular Volume 81.7 fL (80.0-98.0); Mean Platelet Volume 10.9 fL (9.4-12.4); Platelet Count 160 X10*3/uL (160-400); Red Blood Count 4.93 X10*6/uL (4.60-5.80); Red Cell Distribution Width 15.1 % (11.0-16.0); White Blood Count 10.2 X10*3/uL (4.8-10.8)
[2021-03-21 06:01] LABS: Alanine Aminotransferase 139 U/L (0-40); Albumin Level 3.7 g/dL (3.5-5.0); Alkaline Phosphatase 134 U/L (39-117); Anion Gap 13 (12-20); Aspartate Amino Transferase 75 U/L (5-37); Bilirubin Direct 0.3 mg/dL (0.0-0.5); Bilirubin Total 0.7 mg/dL (0.0-1.0); Blood Urea Nitrogen 18 mg/dL (9-16); Calcium 8.7 mg/dL (8.4-10.2); Carbon Dioxide 23 mmol/L (22-29); Chloride 110 mmol/L (96-108); Creatinine Clr Calc Pharmacy 81.3; Estimated Glomerular Filt Rate > 60; Glucose Random 110 mg/dL (60-115); Potassium 4.3 mmol/L (3.3-5.1); Sodium 142 mmol/L (135-145); Total Protein 6.5 g/dL (6.5-8.0)
[2021-03-21] MEDS: Docusate Sodium 100 MG CAPSULE PO ×2 (08:51→21:59)
[2021-03-21] MEDS: Benztropine Mesylate 0.5 MG TABLET PO ×2 (08:51→21:58)
[2021-03-21] MEDS: Bethanechol Chloride 25 MG TABLET 50 MG PO ×2 (08:52→21:58)
[2021-03-21] MEDS: polyethylene glycoL 3350 17 GM POWD.PACK PO (08:53)
[2021-03-21] MEDS: Lidocaine 5 % Ointment 35 GM 1 APPL TOPICAL ×3 (08:59→22:19)
--- NOTE | 2021-03-21 09:17 | MHC.CM.PN ---
PATIENT LIVES AT A [facility] SETTING. [facility]NAGEMENT RN AT [facility] (KRISTI) AWARE OF TODAY'S DC. MANAGEMENT CURRENTLY WAITING FOR THE BEST TIME TO DISCHARGE [facility]. [facility] [phone] FAX [phone] KRISTI ASKS THAT WE FAX DC SUMMARY ONCE IT IS AVAILABLE ACUÑA 03/21 DISCUSSED AND COPY IN CHART
--- NOTE | 2021-03-21 09:38 | PM.GICN ---
History of Present Illness Data of Consult Service Date: 03/21/21 Requesting physician: Lesly Rush Primary Care Provider: Carmina Roman MD HPI Reason for consult: Abdominal pain, dehydration, LAVINIA, 65 yr old AA male seen at [facility] ED on 03/20/21 with abdominal pain, dehydration, LAVINIA, low blood pressure. Pt gives hx of abdominal pain x 2-3 weeks and dizziness x 1 day. He notes constipation and unsure about his last bowel movement (? yesterday). Pt was given IV fluids boluses and an enema in the ED and had a small bowel movement with slight improvement in abd pain. He was admitted for further management> Patient gives history of chronic constipation for the past few years and takes MiraLax daily and has a bowel movement every day. He denies known past hx of hepatitis, jaundice or liver disease Patient denies symptoms of heartburn, dysphagia, a change in appetite or weight. Patient denies major cardiac or pulmonary problems, loud snoring. He notes disturbed sleep and unclear if he has sleep apnea Denies being on chronic anticoagulation and takes Ibuprofen and acetaminophen for joint pains. Pt uses cocaine on and off last use was 5 days ago. He smokes 1-2 packs a day from last 10 years and denies any alcohol use. 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 He lives alone and has 2 children Patient's Dad of emphysema and colon cancer at an advanced age ENDOSCOPIC STUDIES: Pt gives hx of having an EGD & colonoscopy by Dr Abrams in [place] within the past year IMAGING STUDIES: 03/20/[address] SCAN (reviewed with Radiology): There is a large amount of stool in the distal colon suggestive of severe constipation. The left colon and sigmoid colon are slightly dilated measuring up to 5.5 cm. The proximal colon does not appear dilated. There is a mild wall thickening of the proximal colon questionable for mild colitis. This appears greatest and most irregular in the cecum and imaging follow-up to exclude a mass should be considered. The stomach and small bowel appears dilated and fluid-filled. No evidence of pneumatosis is seen. No mesenteric air or portal venous air is seen. The appendix is unremarkable. There is a 4 cm cyst in the left lobe of the liver. There is low-attenuation lesion in the dome of the right lobe of the liver measuring 2.2 x 3 cm not compatible with a simple cyst and difficult to characterize on arterial phase imaging only. The liver is otherwise unremarkable. The gallbladder has been removed. The pancreas is unremarkable. The spleen is unremarkable. There is a 1.4 x 2 cm left adrenal nodule. Hounsfield units postcontrast measure 44 which is indeterminate. The right adrenal gland is normal-appearing. Review of Systems Constitutional: Constitutional: Denies fever(s), Denies headache(s) and Denies weight loss Eyes: Eyes: Denies eye discharge and Denies irritation ENT: Reports Normal hearing present, Denies dysphagia, Denies dizziness and Denies headache(s) Cardiovascular: Cardiovascular: Denies chest pain, Denies leg edema and Denies dyspnea on exertion Respiratory: Respiratory: Denies cough and Denies dyspnea on exertion Gastrointestinal: Gastrointestinal: Reports abdominal pain, Denies change in bowel habits, Reports constipation, Denies dysphagia and Denies heartburn Genitourinary: Genitourinary: Denies dysuria, Reports urinary frequency and Reports other (Urinary retention) Musculoskeletal: Musculoskeletal: Denies back pain and Reports arthralgias Integumentary/Breasts: Skin/Breast: Denies pruritus, Denies rash and Denies jaundice Neurologic: Reports Normal hearing present, Denies Abnormal speech present, Denies dizziness, Denies headache(s) and Denies seizure-like activity Psychiatric: Psychiatric: Denies anxiety, Denies depression, Denies panic attacks and Reports other (Mood swings) Endocrine: Endocrine: Denies cold intolerance, Denies flushing and Denies heat intolerance Hematologic/Lymphatic: Hematologic/Lymphatic: Denies easy bleeding and Denies easy bruising PMFSH Past Medical History Medical History Back pain Feeling of incomplete bladder emptying H/O urinary frequency Mood swings Neurogenic bladder Nocturia Prostate nodule Weak urinary stream Social History Social History Patient Tobacco Use Status: Never used Tobacco Tobacco use type: Cigarette Cigarettes Per Day: 4 Second Hand Smoke Exposure: No service: No Current occupational status: disabled Meds Allergies Allergy/AdvReac Type Severity Reaction Status Date / Time No Known Allergies Allergy Verified 08/23/21 13:07 Active Medications: Current Medications Albuterol Sulfate (Albuterol Sulfate 90 Mcg 8 Gm Inhaler) 2 puff INHALE Q4H PRN PRN Reason: Wheezing Atorvastatin Calcium (Atorvastatin Calcium 10 Mg Tablet) 10 mg PO BEDTIME [facility] Benztropine Mesylate (Benztropine Mesylate 0.5 Mg Tablet) 0.5 mg PO BID [facility] Last Admin: 03/21/21 08:51 Dose: 0.5 mg Documented by: Bethanechol Chloride (Bethanechol Chloride 25 Mg Tablet) 50 mg PO BID [facility] Last Admin: 03/21/21 08:52 Dose: 50 mg Documented by: Clozapine (Clozapine 25 Mg Tablet) 50 mg PO BEDTIME [facility] Last Admin: 03/20/21 23:49 Dose: 50 mg Documented by: Clozapine (Clozapine 100 Mg Tablet) 300 mg PO BEDTIME [facility] Last Admin: 03/20/21 23:42 Dose: 300 mg Documented by: Divalproex Sodium (Divalproex Sodium 250 Mg Tablet.Dr) 750 mg PO BEDTIME [facility] Last Admin: 03/20/21 23:42 Dose: 750 mg Documented by: Docusate Sodium (Docusate Sodium 100 Mg Capsule) 100 mg PO BID [facility] Last Admin: 03/21/21 08:51 Dose: 100 mg Documented by: Heparin Sodium (Porcine) (Heparin Sodium,Porcine 5,000 Unit/Ml Vial) 5,000 unit SUBCUT Q8H [facility] Last Admin: 03/21/21 04:46 Dose: 5,000 unit Documented by: Lactated Ringer's (Lr) 1,000 mls @ 100 mls/hr IVCONT .Q10H [facility] Last Admin: 03/21/21 04:46 Dose: 100 mls/hr Documented by: Lidocaine (Lidocaine 5 % Ointment 35 Gm) 1 appl TOPICAL TID [facility] Last Admin: 03/21/21 08:59 Dose: 1 appl Documented by: Pharmacy Consult (Consult Rx Perform Med Rec) 1 each MISCELLANE ONCE PRN PRN Reason: Consult order Polyethylene Glycol (Polyethylene Glycol 3350 17 Gm Powd.Pack) 17 gm PO BID [facility] Last Admin: 03/21/21 08:53 Dose: 17 gm Documented by: Sodium Chloride (0.9 % Sodium Chloride Flush 3 Ml Syringe) 3 ml IVFLUSH QSHIFT [facility] Last Admin: 03/21/21 09:21 Dose: Not Given Documented by: Tiotropium [place] (Tiotropium [place] 18 Mcg Cap.W.Dev) 1 puff INHALE RDAILY [facility] Last Admin: 03/21/21 08:11 Dose: Not Given Documented by: Home Medications Medication Instructions Recorded Confirmed Last Taken Type acetaminophen 325 mg tablet 650 mg PO Q6H PRN Pain 03/20/21 03/20/21 Unknown History albuterol sulfate 90 mcg/actuation 2 puff inhalation Q4H PRN Wheezing 03/20/21 03/20/21 Unknown History aerosol inhaler atenolol 50 mg tablet 1 tab PO DAILY 03/20/21 03/20/21 Unknown History atorvastatin 10 mg tablet 1 tab PO DAILY 03/20/21 03/20/21 Unknown History benztropine 0.5 mg tablet 0.5 mg PO BID 03/20/21 03/20/21 Unknown History clozapine 100 mg tablet 300 mg PO BEDTIME 03/20/21 03/20/21 Unknown History clozapine 50 mg tablet 50 mg PO BEDTIME 03/20/21 03/20/21 Unknown History divalproex 250 mg tablet,delayed 1 tab PO BEDTIME 03/20/21 03/20/21 Unknown History release divalproex 500 mg tablet,delayed 1 tab PO QPM 03/20/21 03/20/21 Unknown History release hydroxyzine HCl 25 mg tablet 25 mg PO QID PRN Anxiety 03/20/21 03/20/21 Unknown History ibuprofen 400 mg tablet 400 mg PO TID PRN Pain 03/20/21 03/20/21 Unknown History lidocaine 3 % topical cream 1 appl topical TID 03/20/21 03/20/21 Unknown History polyethylene glycol 3350 17 17 g PO DAILY 03/20/21 03/20/21 Unknown History gram/dose oral powder tiotropium bromide 18 mcg capsule 1 cap inhalation DAILY 03/20/21 03/20/21 Unknown History with inhalation device (Spiriva with HandiHaler) amlodipine 5 mg tablet 5 mg PO DAILY 08/23/21 Unknown History benztropine 1 mg tablet 1 mg PO BID 08/23/21 Unknown History buspirone 5 mg tablet 5 mg PO BID 08/23/21 Unknown History clozapine 25 mg tablet 50 mg PO QAM 08/23/21 Unknown History gabapentin 300 mg capsule 300 mg PO BID 08/23/21 Unknown History hydroxyzine pamoate 25 mg capsule 25 mg PO BID 08/23/21 Unknown History lisinopril 40 mg tablet 40 mg PO DAILY 08/23/21 Unknown History naloxone 4 mg/actuation nasal spray 0 spray intranasal 08/23/21 Unknown History tiotropium bromide 1.25 2 puff inhalation DAILY 08/23/21 Unknown History mcg/actuation mist for inhalation (Spiriva Respimat) Physical Exam Vital Signs: Vital Signs: Last Vital Signs Temp 97.6 F 03/21/21 08:00 Pulse 81 03/21/21 08:00 Resp 18 03/21/21 08:00 BP 120/74 03/21/21 08:00 Pulse Ox 98 03/21/21 08:00 Oxygen Flow Rate 2 03/20/21 14:52 BMI result Body Mass Index 32.5 Const: General: no acute distress and ill appearing Nutritional Appearance: obese Orientation/consciousness: patient oriented x3 Limitations: no limitations HENMT: Head: Yes normal to inspection Ears: hearing grossly normal bilaterally Mouth: Normal oral and palatal mucosa present Eyes: Sclerae: sclerae normal Pupils: Equal, round and reactive pupils present Neck: Neck: Yes normal visual inspection Chest: Chest palpation & inspection: normal inspection of the chest Resp: Effort & Inspection: normal respiratory effort Auscultation: clear to auscultation bilaterally Cardio: Palpation: normal PMI Rate: regular rate Rhythm: regular rhythm Heart sounds: S1 normal heart sound present, S2 normal heart sound present and no murmurs GI: Palpation (GI): Soft to palpation, Tenderness to palpation present (GI) (mild lower abdominal tenderness) and No hepatosplenomegaly present Auscultation: normal bowel sounds Rectal Exam - Male: Yes deferred Skin: General skin exam: no rashes or lesions noted Neuro: General: patient oriented x3, gait normal and moves all extremities Cranial nerves: Yes Equal, round and reactive pupils present and Yes Normal hearing present Speech: No Abnormal speech present Psych: Appearance: grossly normal Mental Status: mental status grossly normal Results Labs CBC & Chem 7: 03/21/21 05:28 03/21/21 05:28 Labs: Short CBC 03/20/21 03/21/21 Range/Units 15:23 05:28 WBC 13.6 H 10.2 (4.8-10.8) X10*3/uL Hgb 12.4 L 12.7 L (14.0-18.0) g/dl Hct 38.6 L 40.3 L (42.0-52.0) % Plt Count 183 160 (160-400) X10*3/uL BMP 03/20/21 03/21/21 15:23 05:28 Sodium 143 142 Potassium 3.9 4.3 Chloride 111 H 110 H Carbon Dioxide 23 23 BUN 21 H 18 H Creatinine 1.74 H 1.17 Calcium 8.7 8.7 Liver Function 03/20/21 03/21/21 Range/Units 15:23 05:28 Total Bilirubin 0.8 0.7 (0.0-1.0) mg/dL Direct Bilirubin 0.3 (0.0-0.5) mg/dL AST 69 H 75 H (5-37) U/L ALT 85 H 139 H (0-40) U/L Alkaline Phosphatase 136 H 134 H (39-117) U/L Albumin 3.6 3.7 (3.5-5.0) g/dL Urine 03/20/21 Range/Units 20:01 Urine Color DK YELLOW Urine Appearance CLEAR Urine pH 6.5 (5.0-8.0) Ur Specific [place] <= 1.005 (1.005-1.025) Urine Protein TRACE (NEG-TRACE) MG/DL Urine Glucose (UA) NEG (NEG) MG/DL Assessment and Plan (1) Abdominal pain: Status: Resolved (2) Chronic constipation: Status: Resolved (3) Abnormal CT of liver: Status: Acute Plan 65 yr old AA male seen at [facility] ED on 03/20/21 with abdominal pain due to obstipation, dehydration, LAVINIA, low blood pressure and elevated LFTs. Abdominal pain has improved after pt received Fleet enemas followed by multiple bowel movements. Constipation is likely related to cocaine use and multiple psych medications. CT scan of liver showed a 4 cm benign appearing cyst in the left lobe of the liver. And a 2.2 x 3 cms low-attenuation lesion in the dome of the right lobe of the liver not compatible with a simple cyst and difficult to characterize on arterial phase imaging only. RECOMMENDATIONS: 1. MRI with gadolinium and AFP to FU on the lesion in the dome of right liver lobe 2. Check Hepatitis serologies - added to am labs 3. Add Linaclotide 145 mcg daily for constipation in addition to Miralax once a day to prevent recurrent fecal impaction. Procedures Date of Service Date of Service: 03/21/21
--- NOTE | 2021-03-21 11:48 | MHC.RECOVRN ---
Briefly met with pt in 351 after consult placed to CARE Team for cocaine use. Pt reports using cocaine, [place], $20 2x per week x 1 year. Pt reports this has been due to many deaths in the family. Pt does not elaborate, states What is there to talk about? Pt provided with recovery resources, declines referrals at this time. Pt also provided with t/w contact information if questions or concerns arise. CM aware.
--- NOTE | 2021-03-21 13:28 | P.PNIM_ITS ---
Subjective Subjective Date of Service: 03/21/21 Interval History: Seen in f/u constipation, hypotension and renal failure.. BP is better, renal failure has resolved, and has had a bowel movement Review of Systems no abdominal pain no fever Physical Exam Vital Signs: Vital Signs: Last Vital Signs Temp 97.6 F 03/21/21 08:00 Pulse 81 03/21/21 08:00 Resp 18 03/21/21 08:00 BP 120/74 03/21/21 08:00 Pulse Ox 98 03/21/21 08:00 Oxygen Flow Rate 2 03/20/21 14:52 BMI result Body Mass Index 32.5 General: AO X 2, no acute distress Resp: CTA bilateral CVS: S1,S2,RRR GI: +BS, NT, no distention Skin: No rash Neuro: motor grossly intact Psych: appropriate affect Objective Data Active Medications Albuterol Sulfate (Albuterol Sulfate 90 Mcg 8 Gm Inhaler) 2 puff INHALE Q4H PRN PRN Reason: Wheezing Atorvastatin Calcium (Atorvastatin Calcium 10 Mg Tablet) 10 mg PO BEDTIME [facility] Benztropine Mesylate (Benztropine Mesylate 0.5 Mg Tablet) 0.5 mg PO BID [facility] Last Admin: 03/21/21 08:51 Dose: 0.5 mg Documented by: ROBERT Bethanechol Chloride (Bethanechol Chloride 25 Mg Tablet) 50 mg PO BID [facility] Last Admin: 03/21/21 08:52 Dose: 50 mg Documented by: ROBERT Clozapine (Clozapine 25 Mg Tablet) 50 mg PO BEDTIME [facility] Last Admin: 03/20/21 23:49 Dose: 50 mg Documented by: HANNA Clozapine (Clozapine 100 Mg Tablet) 300 mg PO BEDTIME [facility] Last Admin: 03/20/21 23:42 Dose: 300 mg Documented by: HANNA Divalproex Sodium (Divalproex Sodium 250 Mg Tablet.) 750 mg PO BEDTIME [facility] Last Admin: 03/20/21 23:42 Dose: 750 mg Documented by: HANNA Docusate Sodium (Docusate Sodium 100 Mg Capsule) 100 mg PO BID [facility] Last Admin: 03/21/21 08:51 Dose: 100 mg Documented by: ROBERT Heparin Sodium (Porcine) (Heparin Sodium,Porcine 5,000 Unit/Ml Vial) 5,000 unit SUBCUT Q8H [facility] Last Admin: 03/21/21 10:59 Dose: 5,000 unit Documented by: ROBERT Lactated Ringer's (Lr) 1,000 mls @ 100 mls/hr IVCONT .Q10H [facility] Last Admin: 03/21/21 04:46 Dose: 100 mls/hr Documented by: HANNA Lidocaine (Lidocaine 5 % Ointment 35 Gm) 1 appl TOPICAL TID [facility] Last Admin: 03/21/21 08:59 Dose: 1 appl Documented by: ROBERT Pharmacy Consult (Consult Rx Perform Med Rec) 1 each MISCELLANE ONCE PRN PRN Reason: Consult order Polyethylene Glycol (Polyethylene Glycol 3350 17 Gm Powd.Pack) 17 gm PO BID [facility] Last Admin: 03/21/21 08:53 Dose: 17 gm Documented by: ROBERT Sodium Chloride (0.9 % Sodium Chloride Flush 3 Ml Syringe) 3 ml IVFLUSH QSHIFT [facility] Last Admin: 03/21/21 08:55 Dose: Not Given Documented by: ROBERT Non-Admin Reason: No Access Tiotropium [place] (Tiotropium [place] 18 Mcg Cap.W.Dev) 1 puff INHALE RDAILY [facility] Last Admin: 03/21/21 08:11 Dose: Not Given Documented by: JAMIE Non-Admin Reason: See Note Labs CBC & Chem 7: 03/21/21 05:28 03/21/21 05:28 Labs: Laboratory Results - last 24 hr 03/20/21 03/20/21 03/20/21 15:23 15:23 15:23 MCV 82.0 MCH 26.3 L MCHC 32.1 RDW 15.0 Plt Count 183 MPV 11.0 Immature Gran % (Auto) 0.5 H Neut % (Auto) 70.2 Lymph % (Auto) 22.0 [place] % (Auto) 6.7 Eos % (Auto) 0.4 Baso % (Auto) 0.2 Lymph # (Auto) 3.0 [place] # (Auto) 0.9 Eos # (Auto) 0.1 Baso # (Auto) 0.0 Abs Immat Gran (auto) 0.07 H Absolute Neuts (auto) 9.6 H Absolute Nucleated RBC 0.000 Nucleated RBC % (auto) 0.0 PT 14.2 H INR 1.2 H APTT 29.9 Anion Gap 13 Estim Creat Clear Calc 54.6 Estimated GFR 40 Random Glucose 144 H Lactic Acid Lactic Acid Fup @ 2Hr Lactic Acid Fup @ 4Hr Calcium 8.7 Total Bilirubin 0.8 Direct Bilirubin AST 69 H ALT 85 H Alkaline Phosphatase 136 H Troponin I High Sens Total Protein 6.3 L Albumin 3.6 Urine Color Urine Appearance Urine pH Ur Specific [place] Urine Protein Urine Glucose (UA) Urine Ketones Urine Blood Urine Nitrite Ur Leukocyte Esterase Urine RBC Urine WBC Ur Squamous Epith Cells Urine Bacteria Urine Opiates Screen Urine Fentanyl Screen Ur Barbiturates Screen Ur Phencyclidine Scrn Ur Amphetamines Screen U Benzodiazepines Scrn Urine Cocaine Screen U Marijuana (THC) Screen COVID-19 (MARCELA) [employer] 03/20/21 03/20/21 03/20/21 15:23 15:23 17:01 MCV MCH MCHC RDW Plt Count MPV Immature Gran % (Auto) Neut % (Auto) Lymph % (Auto) [place] % (Auto) Eos % (Auto) Baso % (Auto) Lymph # (Auto) [place] # (Auto) Eos # (Auto) Baso # (Auto) Abs Immat Gran (auto) Absolute Neuts (auto) Absolute Nucleated RBC Nucleated RBC % (auto) PT INR APTT Anion Gap Estim Creat Clear Calc Estimated GFR Random Glucose Lactic Acid 2.6 H* Lactic Acid Fup @ 2Hr Lactic Acid Fup @ 4Hr Calcium Total Bilirubin Direct Bilirubin AST ALT Alkaline Phosphatase Troponin I High Sens < 3.5 Total Protein Albumin Urine Color Urine Appearance Urine pH Ur Specific [place] Urine Protein Urine Glucose (UA) Urine Ketones Urine Blood Urine Nitrite Ur Leukocyte Esterase Urine RBC Urine WBC Ur Squamous Epith Cells Urine Bacteria Urine Opiates Screen Urine Fentanyl Screen Ur Barbiturates Screen Ur Phencyclidine Scrn Ur Amphetamines Screen U Benzodiazepines Scrn Urine Cocaine Screen U Marijuana (THC) Screen COVID-19 (MARCELA) Negative [employer] See Note 03/20/21 03/20/21 03/20/21 18:15 20:01 20:01 MCV MCH MCHC RDW Plt Count MPV Immature Gran % (Auto) Neut % (Auto) Lymph % (Auto) [place] % (Auto) Eos % (Auto) Baso % (Auto) Lymph # (Auto) [place] # (Auto) Eos # (Auto) Baso # (Auto) Abs Immat Gran (auto) Absolute Neuts (auto) Absolute Nucleated RBC Nucleated RBC % (auto) PT INR APTT Anion Gap Estim Creat Clear Calc Estimated GFR Random Glucose Lactic Acid Lactic Acid Fup @ 2Hr 2.8 H* Lactic Acid Fup @ 4Hr Calcium Total Bilirubin Direct Bilirubin AST ALT Alkaline Phosphatase Troponin I High Sens Total Protein Albumin Urine Color DK YELLOW Urine Appearance CLEAR Urine pH 6.5 Ur Specific [place] <= 1.005 Urine Protein TRACE Urine Glucose (UA) NEG Urine Ketones NEG Urine Blood NEG Urine Nitrite NEG Ur Leukocyte Esterase NEG Urine RBC 0-2 Urine WBC 0-2 Ur Squamous Epith Cells TRACE Urine Bacteria NONE Urine Opiates Screen Not Detected Urine Fentanyl Screen Not Detected Ur Barbiturates Screen Not Detected Ur Phencyclidine Scrn Not Detected Ur Amphetamines Screen Not Detected U Benzodiazepines Scrn Not Detected Urine Cocaine Screen POSITIVE H U Marijuana (THC) Screen Not Detected COVID-19 (MARCELA) COVID-19 [employer] 03/20/21 03/20/21 03/21/21 20:01 20:40 05:28 MCV 81.7 MCH 25.8 L MCHC 31.5 RDW 15.1 Plt Count 160 MPV 10.9 Immature Gran % (Auto) Neut % (Auto) Lymph % (Auto) [place] % (Auto) Eos % (Auto) Baso % (Auto) Lymph # (Auto) [place] # (Auto) Eos # (Auto) Baso # (Auto) Abs Immat Gran (auto) Absolute Neuts (auto) Absolute Nucleated RBC 0.000 Nucleated RBC % (auto) 0.0 PT INR APTT Anion Gap Estim Creat Clear Calc Estimated GFR Random Glucose Lactic Acid 1.9 Lactic Acid Fup @ 2Hr Lactic Acid Fup @ 4Hr 2.4 H* Calcium Total Bilirubin Direct Bilirubin AST ALT Alkaline Phosphatase Troponin I High Sens Total Protein Albumin Urine Color Urine Appearance Urine pH Ur Specific [place] Urine Protein Urine Glucose (UA) Urine Ketones Urine Blood Urine Nitrite Ur Leukocyte Esterase Urine RBC Urine WBC Ur Squamous Epith Cells Urine Bacteria Urine Opiates Screen Urine Fentanyl Screen Ur Barbiturates Screen Ur Phencyclidine Scrn Ur Amphetamines Screen U Benzodiazepines Scrn Urine Cocaine Screen U Marijuana (THC) Screen COVID-19 (MARCELA) COVID-19 [employer] Com 03/21/21 05:28 MCV MCH MCHC RDW Plt Count MPV Immature Gran % (Auto) Neut % (Auto) Lymph % (Auto) [place] % (Auto) Eos % (Auto) Baso % (Auto) Lymph # (Auto) [place] # (Auto) Eos # (Auto) Baso # (Auto) Abs Immat Gran (auto) Absolute Neuts (auto) Absolute Nucleated RBC Nucleated RBC % (auto) PT INR APTT Anion Gap 13 Estim Creat Clear Calc 81.3 Estimated GFR > 60 Random Glucose 110 Lactic Acid Lactic Acid Fup @ 2Hr Lactic Acid Fup @ 4Hr Calcium 8.7 Total Bilirubin 0.7 Direct Bilirubin 0.3 AST 75 H ALT 139 H Alkaline Phosphatase 134 H Troponin I High Sens Total Protein 6.5 Albumin 3.7 Urine Color Urine Appearance Urine pH Ur Specific [place] Urine Protein Urine Glucose (UA) Urine Ketones Urine Blood Urine Nitrite Ur Leukocyte Esterase Urine RBC Urine WBC Ur Squamous Epith Cells Urine Bacteria Urine Opiates Screen Urine Fentanyl Screen Ur Barbiturates Screen Ur Phencyclidine Scrn Ur Amphetamines Screen U Benzodiazepines Scrn Urine Cocaine Screen U Marijuana (THC) Screen COVID-19 (MARCELA) COVID-19 Clin Com Assessment and Plan (1) Right hip pain: Status: Acute (2) Hypotension: Status: Acute Assessment and Plan: 65/M who presented with abdominal pain and found to have constipation, profound hypOtension and LAVINIA Abdominal pain, likely from severe constipation. -has had bowel movment with Miralax -add colace, and should drink plenty of fluid -minimize opioid use HypOtension--this has resolved with fluid and holding BP meds, hold Lisinopril, continue Atenolol Schizophrenia--continue Cloazapine, divalproex ?Leukocytosis--likely reactive and resolved Patient has mild elevated LFTs and?There is a 4 cm cyst in the left lobe of the liver. There is low-attenuation lesion in the dome of the right lobe of the liver measuring 2.2 x 3 cm not compatible with a simple cyst and difficult to characterize on arterial phase imaging only.? moniter lft's added Gi eval for above. LAVINIA--d/t pre renal state, resolved hx? off urinary retention: Continue doxazosin. Quality Stroke Does the patient have a stroke diagnosis?: No VTE Prior VTE?: No VTE Risk Level:: Medical - moderate - high VTE Device Contraindication: N/A - Device Ordered VTE Drug Contraindication: N/A - Med Ordered
[2021-03-21] MEDS: atenoloL 25 MG TABLET PO (14:20)
[2021-03-21] MEDS: Atorvastatin Calcium 10 MG TABLET PO (21:58)
[2021-03-21] MEDS: cloZAPine 25 MG TABLET 50 MG PO (21:58)
[2021-03-21] MEDS: cloZAPine 100 MG TABLET 300 MG PO (21:58)
[2021-03-21] MEDS: Divalproex Sodium 250 MG TABLET.DR 750 MG PO (21:59)
[2021-03-22 03:14] VITALS: BP 124/81; PULSE 92; RESP 18; TEMP 36.2; O2SAT 97
[2021-03-22] MEDS: Heparin Sodium,Porcine 5,000 UNIT/ML VIAL 5000 UNIT SUBCUT ×3 (04:17→20:25)
--- NOTE | 2021-03-22 07:36 | HO.PM.IMPN ---
Subjective Subjective Date of Service: 05/01/21 Interval History: Seen in f/u constipation, hypOtension and renal failure.. BP is better, renal failure has resolved, and he has had bowel movement Review of Systems no abdominal pain no fever Physical Exam Vital Signs: Vital Signs: Selected Entries 03/22/21 15:32 Temperature 98.3 F Pulse Rate 81 Respiratory Rate 18 Blood Pressure 132/84 Pulse Oximetry 98 Oxygen Delivery Me thod Room Air Const: Other: General: AO X 2, no acute distress Resp:? CTA bilateral CVS: S1,S2,RRR GI: +BS, NT, no distention Skin: No rash Neuro:? motor grossly intact Psych: appropriate affect Objective Data Labs CBC & Chem 7: 03/21/21 05:28 03/21/21 05:28 Assessment and Plan (1) Right hip pain: Status: Resolved (2) Hypotension: Status: Resolved Assessment and Plan: 65/M who presented with abdominal pain and found to have constipation, profound hypOtension and LAVINIA Abdominal pain, likely from severe constipation. +bowel movment -continuue bowel regimen, encourage drinking plenty of water -minimize opioid use HypOtension--Resolved, BP has been normal. Holding BP meds for now Schizophrenia--continue Cloazapine, divalproex ?Leukocytosis--likely reactive and resolved Patient has mild elevated LFTs and?There is a 4 cm cyst in the left lobe of the liver. There is low-attenuation lesion in the dome of the right lobe of the liver measuring 2.2 x 3 cm not compatible with a simple cyst and difficult to characterize on arterial phase imaging only.? moniter lft's --1.? MRI with gadolinium and AFP to FU on the lesion in the dome of right liver lobe 2.? Check Hepatitis serologies - added to am labs 3.? Add Linaclotide 145 mcg daily for constipation in addition to Miralax once a day to prevent recurrent fecal impaction. 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 off urinary retention: Continue doxazosin. This is late entry note for 03/22/21 Quality Stroke Does the patient have a stroke diagnosis?: No VTE Prior VTE?: No VTE Risk Level:: Medical - moderate - high VTE Device Contraindication: N/A - Device Ordered VTE Drug Contraindication: N/A - Med Ordered
[2021-03-22 07:37] LABS: ~HepC Num1 0.15 S/CO (0.00-0.79); ~Hepatitis C Antibody Nonreactive (Nonreactive)
[2021-03-22 07:39] LABS: HBS Num1 50.48 mIU/mL (0-7.99); ~Hepatitis B Surface Antibody REACTIVE (Nonreactive)
[2021-03-22 07:40] LABS: HBc Num1 0.05 S/CO (0.00-0.79); HBsAGNum1 0.37 S/CO (0.00-0.99); Hepatitis B Core Antibody Nonreactive (Nonreactive); Hepatitis B Surface Antigen Negative (Negative)
[2021-03-22 08:00] VITALS: BP 114/78; PULSE 81; RESP 17; TEMP 36.2; O2SAT 97
[2021-03-22] MEDS: Bethanechol Chloride 25 MG TABLET 50 MG PO ×2 (08:39→20:25)
[2021-03-22] MEDS: atenoloL 25 MG TABLET PO (08:39)
[2021-03-22] MEDS: Benztropine Mesylate 0.5 MG TABLET PO ×2 (08:39→20:25)
[2021-03-22] MEDS: Docusate Sodium 100 MG CAPSULE PO ×2 (08:39→20:35)
[2021-03-22] MEDS: polyethylene glycoL 3350 17 GM POWD.PACK PO ×2 (08:39→20:26)
[2021-03-22] MEDS: Lidocaine 5 % Ointment 35 GM 1 APPL TOPICAL ×3 (09:36→20:36)
[2021-03-22 12:00] VITALS: BP 112/84; PULSE 82; RESP 18; TEMP 36; O2SAT 99
--- NOTE | 2021-03-22 13:48 | MHC.CM.PN ---
THIS ROVING WINDER SPOKE WITH CHARI RN (KRISTI @ [phone]) SHE IS AWARE THAT PATIENT NOW NEEDS A CT SCAN. IF PATIENT IS DC PRIOR TO 1700, THEY CAN TRANSPORT. KRISTI STATES THAT PATIENT RECENTLY HAD TO MOVE TO THE [facility] IN [place] AND CAN BE TAXIED THERE AT [place]. CHARI IS CURRENTLY LOOKING TO SECURE PATIENT AT [facility] AND STATES THAT IT IS A LENGTHY PROCESS. RN AND PATIENT AWARE OF PLANS
[2021-03-22 15:32] VITALS: BP 132/84; PULSE 81; RESP 18; TEMP 36.8; O2SAT 98
[2021-03-22] MEDS: iohexoL 350 MG/ML 100 ML INFUS..BTL IV (16:22)
[2021-03-22] MEDS: 0.9 % Sodium Chloride Flush 3 ML SYRINGE IVFLUSH ×2 (17:41→20:26)
[2021-03-22 19:36] VITALS: BP 118/72; PULSE 95; RESP 18; TEMP 37.5; O2SAT 97
[2021-03-22] MEDS: Atorvastatin Calcium 10 MG TABLET PO (20:25)
[2021-03-22] MEDS: Divalproex Sodium 250 MG TABLET.DR 750 MG PO (20:25)
[2021-03-22] MEDS: cloZAPine 100 MG TABLET 300 MG PO (20:25)
[2021-03-22] MEDS: Lactated Ringers 1,000 ML 100 ML IVCONT (20:26)
[2021-03-22] MEDS: cloZAPine 25 MG TABLET 50 MG PO (20:38)
[2021-03-22 23:43] VITALS: BP 110/68; PULSE 84; RESP 16; TEMP 36.5; O2SAT 96
[2021-03-23 03:06] VITALS: BP 131/86; PULSE 93; RESP 16; TEMP 36.6; O2SAT 95
[2021-03-23] MEDS: Heparin Sodium,Porcine 5,000 UNIT/ML VIAL 5000 UNIT SUBCUT ×2 (04:16→12:22)
[2021-03-23] MEDS: Lactated Ringers 1,000 ML 100 ML IVCONT (06:28)
[2021-03-23 07:21] VITALS: BP 156/96; PULSE 87; RESP 17; TEMP 36.2; O2SAT 97
[2021-03-23 07:39] VITALS: PULSE 87; RESP 17; O2SAT 97
[2021-03-23] MEDS: polyethylene glycoL 3350 17 GM POWD.PACK PO (07:50)
[2021-03-23] MEDS: Docusate Sodium 100 MG CAPSULE PO (07:50)
[2021-03-23] MEDS: Bethanechol Chloride 25 MG TABLET 50 MG PO (07:50)
[2021-03-23] MEDS: atenoloL 25 MG TABLET PO (07:50)
[2021-03-23] MEDS: Benztropine Mesylate 0.5 MG TABLET PO (07:50)
[2021-03-23] MEDS: Lidocaine 5 % Ointment 35 GM 1 APPL TOPICAL (07:51)
[2021-03-23] MEDS: 0.9 % Sodium Chloride Flush 3 ML SYRINGE IVFLUSH (07:51)
--- NOTE | 2021-03-23 10:22 | MHC.CM.PN ---
Addendum entered by Vicky Lomas 03/23/21 11:11: [facility] WILL TRANSPORT PATIENT HOME TODAY THEY EXPECT TO BE HERE JUST AFTER 1200 TODAY Original Note: PATIENT IS DC HOME TODAY WITH RESUMPTION OF HIS [facility]. HE WILL NEED C SHUTTLE. CHARI BERRY AWARE PER HER PHONE CALL TO THIS BREAKER UP RN AWARE OF PLAN.
--- NOTE | 2021-03-23 11:26 | PM.DS ---
DS: Providers Provider Date of Service: 03/23/21 Date of admission: 03/20/21 18:47 Primary care physician: Carmina Roman MD Consults: 03/20/21 19:20 Consult to Gastroenterology Routine Consulting Provider: Radhika Zepeda Reason for consultation: Elevated liver enzyme, his question of liver cyst, severe constipation. Has provider been notified: No 03/20/21 19:21 Consult to Care Team Routine Comment: Reason for consultation: cocaine use DS: Diagnosis Discharge Diagnosis (1) Abdominal pain: Status: Acute (2) Urinary retention with incomplete bladder emptying: Status: Acute DS: Summary Hospital Course Hospital Course: Chief Complaint: ? Abdominal pain, dehydration, LAVINIA, softer blood pressure. 65-year-old male came to the hospital because of Abdominal pain, dehydration, LAVINIA, softer blood pressure. his poor historian: Says that he having? abdominal pain for almost 2-3 weeks,also unclear when he had last bowel movement says the last bowel movement was yesterday , also has dizziness today as per the patient. patient was given IV fluids boluses as well as enema in the ED: Patient had passed small bowel movement after that patient says his pain is slightly better than before has dry cough. Hospital course: 1. He presented with abdominal pain and noted to have severe constipation. CT of abdomen showed the folowing a 4 cm cyst in the left lobe of the liver. There is low-attenuation lesion in the dome of the right lobe of the liver measuring 2.2 x 3 cm not compatible with a simple cyst and difficult to characterize on arterial phase imaging only. The liver is otherwise unremarkable. The gallbladder has been removed. The pancreas is unremarkable. The spleen is unremarkable. There is a 1.4 x 2 cm left adrenal nodule. Hounsfield units postcontrast measure 44 which is indeterminate. The right adrenal gland is normal-appearing. He was seen by Dr. Almonte and made the following recommendations 1.? MRI with gadolinium and AFP to FU on the lesion in the dome of right liver lobe---MRI could not be done due to hardware in jaw and patient didn't want to do it due claustrophobia 2.? Check Hepatitis serologies --B and C negative 3.? Add Linaclotide 145 mcg daily for constipation in addition to Miralax once a day to prevent recurrent fecal impaction. 4. three-phase CT of the abdomen and pelvis was done in lieu of MRI, and showed Somewhat motion limited evaluation. That said, the lesion in question at the dome of the right lobe of the liver likely represents a hemangioma. There are additional areas of arterial hyperenhancement scattered throughout the liver which likely represent transient hepatic attenuation difference. Left hepatic cyst again noted. ? Left adrenal lipid rich adenoma measuring 2.2 cm HypOtension--This was not due to sepsis but likely BP meds, he takes Lisinopril 40 which has been on hold since admission and Atenolol 50 mg daily that can be resume. Blood pressure improved to normal with IVF, Will discontinue Lisinopril and to continue Atenolol Schizophrenia--continue Cloazapine, divalproex--WBC normal, no indication to checking clozaril level ?Leukocytosis--likely reactive and resolved ?LAVINIA--d/t pre renal state, resolved with IVF hx? off urinary retention: Continue doxazosin. Will be discharge and follow up on outpatient basis Time Spent with Patient Time attestation: Total time spent providing and/or coordinating discharge services: Discharge coordination time: Greater than 30 minutes Quality: Stroke Does the patient have a stroke diagnosis?: No Physical Exam Vital Signs: Vital Signs: Selected Entries 03/23/21 07:21 Temperature 97.1 F Pulse Rate 87 Respiratory Rate 17 Blood Pressure 156/96 H Pulse Oximetry 97 General: AO X 3, no acute distress Resp: CTA bilateral CVS: S1,S2,RRR GI: +BS, NT, no distention Skin: No rash Neuro: motor grossly intact Psych: appropriate affect DS: Data Data Completed and Pending Labs on day of discharge: Laboratory Results - last 24 hr 03/20/21 03/20/21 03/20/21 15:23 15:23 15:23 WBC 13.6 H RBC 4.71 Hgb 12.4 L Hct 38.6 L MCV 82.0 MCH 26.3 L MCHC 32.1 RDW 15.0 Plt Count 183 MPV 11.0 Immature Gran % (Auto) 0.5 H Neut % (Auto) 70.2 Lymph % (Auto) 22.0 Stephens % (Auto) 6.7 Eos % (Auto) 0.4 Baso % (Auto) 0.2 Lymph # (Auto) 3.0 Stephens # (Auto) 0.9 Eos # (Auto) 0.1 Baso # (Auto) 0.0 Abs Immat Gran (auto) 0.07 H Absolute Neuts (auto) 9.6 H Absolute Nucleated RBC 0.000 Nucleated RBC % (auto) 0.0 PT 14.2 H INR 1.2 H APTT 29.9 Sodium 143 Potassium 3.9 Chloride 111 H Carbon Dioxide 23 Anion Gap 13 BUN 21 H Creatinine 1.74 H Estim Creat Clear Calc 54.6 Estimated GFR 40 Random Glucose 144 H Lactic Acid Lactic Acid Fup @ 2Hr Lactic Acid Fup @ 4Hr Calcium 8.7 Total Bilirubin 0.8 Direct Bilirubin AST 69 H ALT 85 H Alkaline Phosphatase 136 H Troponin I High Sens Total Protein 6.3 L Albumin 3.6 Urine Color Urine Appearance Urine pH Ur Specific [place] Urine Protein Urine Glucose (UA) Urine Ketones Urine Blood Urine Nitrite Ur Leukocyte Esterase Urine RBC Urine WBC Ur Squamous Epith Cells Urine Bacteria Urine Opiates Screen Urine Fentanyl Screen Ur Barbiturates Screen Ur Phencyclidine Scrn Ur Amphetamines Screen U Benzodiazepines Scrn Urine Cocaine Screen U Marijuana (THC) Screen COVID-19 (MARCELA) COVID-19 Clin Com 03/20/21 03/20/21 03/20/21 15:23 15:23 17:01 WBC RBC Hgb Hct MCV MCH MCHC RDW Plt Count MPV Immature Gran % (Auto) Neut % (Auto) Lymph % (Auto) Stephens % (Auto) Eos % (Auto) Baso % (Auto) Lymph # (Auto) Stephens # (Auto) Eos # (Auto) Baso # (Auto) Abs Immat Gran (auto) Absolute Neuts (auto) Absolute Nucleated RBC Nucleated RBC % (auto) PT INR APTT Sodium Potassium Chloride Carbon Dioxide Anion Gap BUN Creatinine Estim Creat Clear Calc Estimated GFR Random Glucose Lactic Acid 2.6 H* Lactic Acid Fup @ 2Hr Lactic Acid Fup @ 4Hr Calcium Total Bilirubin Direct Bilirubin AST ALT Alkaline Phosphatase Troponin I High Sens < 3.5 Total Protein Albumin Urine Color Urine Appearance Urine pH Ur Specific [place] Urine Protein Urine Glucose (UA) Urine Ketones Urine Blood Urine Nitrite Ur Leukocyte Esterase Urine RBC Urine WBC Ur Squamous Epith Cells Urine Bacteria Urine Opiates Screen Urine Fentanyl Screen Ur Barbiturates Screen Ur Phencyclidine Scrn Ur Amphetamines Screen U Benzodiazepines Scrn Urine Cocaine Screen U Marijuana (THC) Screen COVID-19 (MARCELA) Negative COVID-19 Clin Com See Note 03/20/21 03/20/21 03/20/21 18:15 20:01 20:01 WBC RBC Hgb Hct MCV MCH MCHC RDW Plt Count MPV Immature Gran % (Auto) Neut % (Auto) Lymph % (Auto) Stephens % (Auto) Eos % (Auto) Baso % (Auto) Lymph # (Auto) Stephens # (Auto) Eos # (Auto) Baso # (Auto) Abs Immat Gran (auto) Absolute Neuts (auto) Absolute Nucleated RBC Nucleated RBC % (auto) PT INR APTT Sodium Potassium Chloride Carbon Dioxide Anion Gap BUN Creatinine Estim Creat Clear Calc Estimated GFR Random Glucose Lactic Acid Lactic Acid Fup @ 2Hr 2.8 H* Lactic Acid Fup @ 4Hr Calcium Total Bilirubin Direct Bilirubin AST ALT Alkaline Phosphatase Troponin I High Sens Total Protein Albumin Urine Color DK YELLOW Urine Appearance CLEAR Urine pH 6.5 Ur Specific [place] <= 1.005 Urine Protein TRACE Urine Glucose (UA) NEG Urine Ketones NEG Urine Blood NEG Urine Nitrite NEG Ur Leukocyte Esterase NEG Urine RBC 0-2 Urine WBC 0-2 Ur Squamous Epith Cells TRACE Urine Bacteria NONE Urine Opiates Screen Not Detected Urine Fentanyl Screen Not Detected Ur Barbiturates Screen Not Detected Ur Phencyclidine Scrn Not Detected Ur Amphetamines Screen Not Detected U Benzodiazepines Scrn Not Detected Urine Cocaine Screen POSITIVE H U Marijuana (THC) Screen Not Detected COVID-19 (MARCELA) COVID-19 Clin Com 03/20/21 03/20/21 03/21/21 20:01 20:40 05:28 WBC 10.2 RBC 4.93 Hgb 12.7 L Hct 40.3 L MCV 81.7 MCH 25.8 L MCHC 31.5 RDW 15.1 Plt Count 160 MPV 10.9 Immature Gran % (Auto) Neut % (Auto) Lymph % (Auto) Stephens % (Auto) Eos % (Auto) Baso % (Auto) Lymph # (Auto) Stephens # (Auto) Eos # (Auto) Baso # (Auto) Abs Immat Gran (auto) Absolute Neuts (auto) Absolute Nucleated RBC 0.000 Nucleated RBC % (auto) 0.0 PT INR APTT Sodium Potassium Chloride Carbon Dioxide Anion Gap BUN Creatinine Estim Creat Clear Calc Estimated GFR Random Glucose Lactic Acid 1.9 Lactic Acid Fup @ 2Hr Lactic Acid Fup @ 4Hr 2.4 H* Calcium Total Bilirubin Direct Bilirubin AST ALT Alkaline Phosphatase Troponin I High Sens Total Protein Albumin Urine Color Urine Appearance Urine pH Ur Specific [place] Urine Protein Urine Glucose (UA) Urine Ketones Urine Blood Urine Nitrite Ur Leukocyte Esterase Urine RBC Urine WBC Ur Squamous Epith Cells Urine Bacteria Urine Opiates Screen Urine Fentanyl Screen Ur Barbiturates Screen Ur Phencyclidine Scrn Ur Amphetamines Screen U Benzodiazepines Scrn Urine Cocaine Screen U Marijuana (THC) Screen COVID-19 (MARCELA) COVID-19 [employer] 03/21/21 05:28 WBC RBC Hgb Hct MCV MCH MCHC RDW Plt Count MPV Immature Gran % (Auto) Neut % (Auto) Lymph % (Auto) Stephens % (Auto) Eos % (Auto) Baso % (Auto) Lymph # (Auto) Stephens # (Auto) Eos # (Auto) Baso # (Auto) Abs Immat Gran (auto) Absolute Neuts (auto) Absolute Nucleated RBC Nucleated RBC % (auto) PT INR APTT Sodium 142 Potassium 4.3 Chloride 110 H Carbon Dioxide 23 Anion Gap 13 BUN 18 H Creatinine 1.17 Estim Creat Clear Calc 81.3 Estimated GFR > 60 Random Glucose 110 Lactic Acid Lactic Acid Fup @ 2Hr Lactic Acid Fup @ 4Hr Calcium 8.7 Total Bilirubin 0.7 Direct Bilirubin 0.3 AST 75 H ALT 139 H Alkaline Phosphatase 134 H Troponin I High Sens Total Protein 6.5 Albumin 3.7 Urine Color Urine Appearance Urine pH Ur Specific [place] Urine Protein Urine Glucose (UA) Urine Ketones Urine Blood Urine Nitrite Ur Leukocyte Esterase Urine RBC Urine WBC Ur Squamous Epith Cells Urine Bacteria Urine Opiates Screen Urine Fentanyl Screen Ur Barbiturates Screen Ur Phencyclidine Scrn Ur Amphetamines Screen U Benzodiazepines Scrn Urine Cocaine Screen U Marijuana (THC) Screen COVID-19 (MARCELA) COVID-19 [employer] Discharge Plan Discharge Anticipated Discharge Date/Time: 03/23/21 10:02 Patient Disposition: Home, Self-Care Discharge Diagnosis: Constipation, Hypotension Referrals: [facility] [Other] - 1 Week [facility] [Outside] - 1 Week Carmina Roman MD [Primary Care Provider] - 1 Week Laisha Almonte MD [Physician] - 2 Weeks Discharge Medications: New polyethylene glycol 3350 17 gram Powder In Packet 17 g PO DAILY Qty: 30 RF: 0 docusate sodium [Colace] 100 mg capsule 100 mg PO BID Qty: 60 RF: 0 linaclotide 145 mcg capsule 145 mcg PO DAILY Qty: 30 RF: 0 Continued bethanechol chloride 50 mg tablet 50 mg PO BID 90 Days Qty: 180 RF: 3 acetaminophen 325 mg Tablet 650 mg PO Q6H PRN (Reason: Pain) RF: 0 benztropine 0.5 mg tablet 0.5 mg PO BID RF: 0 divalproex 250 mg tablet,delayed release (DR/EC) 1 tab PO BEDTIME RF: 0 atorvastatin 10 mg tablet 1 tab PO DAILY RF: 0 clozapine 100 mg tablet 300 mg PO BEDTIME RF: 0 divalproex 500 mg tablet,delayed release (DR/EC) 1 tab PO QPM RF: 0 polyethylene glycol 3350 17 gram/dose powder 17 g PO DAILY RF: 0 albuterol sulfate 90 mcg/actuation Hfa Aerosol Inhaler 2 puff INHALATION Q4H PRN (Reason: Wheezing) RF: 0 atenolol 50 mg tablet 1 tab PO DAILY RF: 0 Spiriva with HandiHaler 18 mcg capsule, w/inhalation device 1 cap inhalation DAILY RF: 0 clozapine 50 mg tablet 50 mg PO BEDTIME RF: 0 lidocaine 3 % Cream 1 appl TOPICAL TID RF: 0 hydroxyzine HCl 25 mg Tablet 25 mg PO QID PRN (Reason: Anxiety) RF: 0 imipramine HCl 25 mg tablet 1 tab PO DAILY RF: 0 ibuprofen 400 mg Tablet 400 mg PO TID PRN (Reason: Pain) RF: 0 Discontinued lisinopril 40 mg tablet 1 tab PO DAILY RF: 0 Discharge Orders: Discharge Order (Routine); Ordered 03/23/21 Ordered By: Ryan Greenwood Diet: advance to usual diet Activity on Discharge: As tolerated Stand Alone Forms: Patient Portal Discharge page Care Plan Goals: resolution of constipation and BP control Health Concerns: Severe constipation Plan of Treatment: Stop Taking Lisinopril for blood pressure, take Miralax and colace for constipation, follow up with your Doctor in a week Assessment: maggie richards
[2021-03-23 11:28] VITALS: BP 140/89; PULSE 91; RESP 18; TEMP 36.4; O2SAT 98
[2021-03-23 14:30] LABS: ~Lactic Acid-LAB USE ONLY 2.4 mmol/L (0.5-2.0)
[2021-03-23 15:15] VITALS: BP 154/102; PULSE 93; RESP 17; TEMP 36.3; O2SAT 96
--- NOTE | 2021-03-23 16:21 | MHC.CM.PN ---
CALL TO N TO INQUIRE ABOUT WHEN PATIENT WILL BE PICKED UP. 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 RN AND PATIENT WERE MADE AWARE.
[2021-03-23 16:45] LABS: Clozapine (Clozaril) 573 mcg/L; Norclozapine 106 mcg/L (25-400)
== END 2021-03-23 16:49 | disposition home or self-care (01) ==
LOC: HO.ED 16:56 → HO.EDOVER 18:51 → HO.S3 21:54
PROVIDERS: Emergency Medicine; Internal Medicine Gastroenterology; Admitting Provider Internal Medicine; Emergency Provider Emergency Medicine Emergency Medical Services; PCP Internal Medicine; Visit Provider Internal Medicine
DX: R10.9 Unspecified abdominal pain (principal); I95.9 Hypotension, unspecified; K59.09 Other constipation; E86.0 Dehydration; K76.89 Other specified diseases of liver; N17.9 Acute kidney failure, unspecified; R33.9 Retention of urine, unspecified; E66.9 Obesity, unspecified; D35.02 Benign neoplasm of left adrenal gland; F17.210 Nicotine dependence, cigarettes, uncomplicated; F14.20 Cocaine dependence, uncomplicated; Z20.822 Contact with and (suspected) exposure to COVID-19; Z68.32 Body mass index [BMI] 32.0-32.9, adult; Z88.8 Allergy status to other drugs, medicaments and biological substances; Z79.899 Other long term (current) drug therapy
CPT/HCPCS: 36415; 70250; 71275; 74170; 80048; 80053; 80076; 80159; 80307; 81001; 83605; 84484; 85025; 85027; 85610; 85730; 86704; 86706; 86803; 87040; 87340; 87635; 93005; 96361; 96374; 99218; 99284; 99285; J2543; Q9967

== ENCOUNTER 2021-06-29 10:31 | Outpatient (REF) | payer MEDICARE, MEDICAID, SELFPAY ==
[2021-06-29 12:08] LABS: Estimated Average Glucose 128 mg/dL; Hemoglobin A1c % 6.1 %
[2021-06-29 12:31] LABS: Alanine Aminotransferase 39 U/L (0-40); Albumin Level 4.1 g/dL (3.5-5.0); Alkaline Phosphatase 115 U/L (39-117); Anion Gap 17 (12-20); Aspartate Amino Transferase 16 U/L (5-37); Bilirubin Total 0.4 mg/dL (0.0-1.0); Blood Urea Nitrogen 18 mg/dL (9-16); Calcium 9.4 mg/dL (8.4-10.2); Carbon Dioxide 21 mmol/L (22-29); Chloride 105 mmol/L (96-108); Cholesterol 160 mg/dL; Estimated Glomerular Filt Rate 56; Glucose Random 144 mg/dL (60-115); Potassium 4.2 mmol/L (3.3-5.1); Sodium 139 mmol/L (135-145); Total Protein 7.4 g/dL (6.5-8.0)
== END 2021-06-29 10:32 | disposition home or self-care (01) ==
LOC: HO.LABR 10:31
PROVIDERS: Visit Provider Nurse Practitioner Psychiatric/Mental Health
DX: Z79.899 Other long term (current) drug therapy (principal)
CPT/HCPCS: 36415; 80053; 82465; 83036

== ENCOUNTER → 2021-08-23 13:02 | Outpatient (BNVA) | payer MEDICARE, MEDICAID, SELFPAY | PROVIDERS: PCP Internal Medicine; Visit Provider Urology | DX: R33.9 Retention of urine, unspecified (principal); R39.12 Poor urinary stream | CPT/HCPCS: 51798; 99212 ==

== ENCOUNTER 2021-10-23 11:34 | Outpatient (REF) | payer MEDICARE, MEDICAID, SELFPAY ==
[2021-10-23 11:57] LABS: MANUAL DIFF FLAG NO
[2021-10-23 13:13] LABS: Basophils Percent Auto 0.4 % (0-2); Eosinophils Absolute Auto 0.2 X10*3/uL (0.0-0.4); Eosinophils Percent Auto 2.2 % (0-4); Hematocrit 43.8 % (42.0-52.0); Hemoglobin 13.9 g/dl (14.0-18.0); Imm Gran Abs Auto 0.05 X10*3/uL (0.00-0.03); Imm Gran Pct Auto 0.6 % (0.0-0.4); Lymphocytes Absolute Auto 3.7 X10*3/uL (1.2-4.9); Lymphocytes Percent Auto 42.9 % (20-40); Mean Corpuscular HGB Conc 31.7 g/dl (31.0-36.0); Mean Corpuscular Hemoglobin 24.8 pg (27.0-33.0); Mean Corpuscular Volume 78.1 fL (80.0-98.0); Mean Platelet Volume 10.7 fL (9.4-12.4); Monocytes Absolute Auto 0.6 X10*3/uL (0.1-1.2); Monocytes Percent Auto 6.5 % (2-11); Neut%MD 47.4 %; Neutrophils Percent Auto 47.4 % (45-73); Platelet Count 185 X10*3/uL (160-400); Red Blood Count 5.61 X10*6/uL (4.60-5.80); Red Cell Distribution Width 15.9 % (11.0-16.0); WBCANC 8.5 X10*3/uL; White Blood Count 8.5 X10*3/uL (4.8-10.8)
[2021-10-25 23:31] LABS: Norclozapine 230 mcg/L (25-400)
== END 2021-10-23 11:35 | disposition home or self-care (01) ==
LOC: HO.LABR 11:34
PROVIDERS: Visit Provider Nurse Practitioner Psychiatric/Mental Health
DX: Z79.899 Other long term (current) drug therapy (principal)
CPT/HCPCS: 36415; 80159; 85025

== ENCOUNTER 2021-11-22 18:47 | Inpatient (IN) | payer MEDICARE, MEDICAID, SELFPAY ==
--- NOTE | ~2021-11-22 | CT_ITS ---
EXAMINATION: CT CHEST, ABDOMEN AND PELVIS WITHOUT CONTRAST CLINICAL INFORMATION: ams, decreased respiratory rate, OD R/0 fracture, urinary frequency COMPARISON: CT liver 03/22/2021, CT angiogram chest 03/20/2021 TECHNIQUE: Multidetector volumetric imaging was performed from the thoracic inlet through the pubic symphysis without IV contrast. Sagittal and coronal reformatted images were obtained on the technologist's workstation. This CT examination was performed using dose optimization techniques as appropriate, variously including the following: *Automated exposure control *Adjustment of mA and/or kV according to patient size (this includes techniques or standardized protocols for targeted exams where dose is matched to indication/reason for exam; i.e. extremities or head) *Use of iterative reconstruction technique DLP: 667 chest and 1610 abdomen mGy-cm FINDINGS: CHEST: Lung: Bibasilar atelectasis is present. No other abnormality is seen. That would be responsible for the patient's symptoms Mediastinum: The thyroid is again noted to be enlarged, right lobe greater than left. Heart size normal. The central vascular structures are unremarkable. No hilar or mediastinal lymphadenopathy. Pericardium/Pleura: No significant effusion. No pleural mass or thickening. Chest Wall/Axilla: Unremarkable ABDOMEN/PELVIS: Peritoneal Space: No significant free air or free fluid identified. Liver, Gallbladder, Biliary Tree: The liver is normal in size, shape, and attenuation. There is a 5.4 cm cyst present in the right lobe of the liver unchanged from prior. No worrisome solid focal hepatic lesion or biliary ductal dilatation is present. Status post cholecystectomy Pancreas: Fatty infiltration of the pancreas which is otherwise unremarkable Spleen: Unremarkable Adrenal Glands: Again seen is a fat density left adrenal benign adenoma. The right adrenal is unremarkable. Kidneys and Ureters: The kidneys are normal in size, shape, and attenuation. No hydronephrosis, hydroureter, or calculi seen. No perinephric stranding. Bladder: Catheter is present in the bladder which is empty Gastrointestinal Tract: The small and large bowel are unremarkable. The appendix is unremarkable. Abdominal Wall: No significant hernia is appreciated. Lymph Nodes: No lymphadenopathy. Vascular: The aorta appears normal.. The IVC appears unremarkable. PELVIC VISCERA: Mild BPH OSSEUS STRUCTURES: Mild degenerative changes are noted in the spine. Sclerosis is noted involving the inferior aspects are the L3 and L4 vertebral bodies. Sclerotic changes present at the facet joints at L4-L5 and L5-S1. No bony destructive lesions are seen. CT/CT abdomen pelvis wo con IMPRESSION: 1. No worrisome finding is seen 2. Incidental note is thyromegaly, benign hepatic cyst, status post cholecystectomy. Fatty pancreas, benign left adrenal adenoma, BPH with a Rogers catheter in the bladder Fleischner guidelines were followed.
--- NOTE | ~2021-11-22 | CT_ITS ---
EXAMINATION: NONCONTRAST HEAD CT NONCONTRAST CERVICAL SPINE CT INDICATION INFORMATION: Change in mental status. COMPARISON: None TECHNIQUE: Separate noncontrast CT examinations of the head and cervical spine were performed. Coronal and sagittal images were created for each examination at the technologist workstation. This CT examination was performed using dose optimization techniques as appropriate, variously including the following: *Automated exposure control *Adjustment of mA and/or kV according to patient size (this includes techniques or standardized protocols for targeted exams where dose is matched to indication/reason for exam; i.e. extremities or head) *Use of iterative reconstruction technique DLP: 1629 mGy-cm FINDINGS: Head: There is no evidence of acute intracranial hemorrhage or territorial infarction. No abnormal mass effect or midline shift is seen. Mcmanus to white matter differentiation is well preserved. No extra-axial fluid collections are identified. No hydrocephalus. Proportional prominence of the ventricles and sulcal spaces is consistent with mild volume loss. Patchy periventricular and deep white matter hypoattenuation is consistent with mild small vessel ischemic changes. No acute osseous or soft tissue abnormality. Left lateral orbital fixation hardware. The mastoid air cells and visualized portions of the paranasal sinuses are well aerated. Cervical spine: There is anatomic alignment of the vertebral bodies and posterior elements. The atlantoaxial and atlantooccipital articulations are intact. Vertebral body heights are maintained. There is multilevel intervertebral disc space narrowing with endplate osteophyte formation and facet arthropathy. No evidence of acute fracture. No prevertebral soft tissue swelling. Visualized portions of the lung apices are unremarkable. The thyroid gland is significantly enlarged.. CT/CT cervical spine wo con IMPRESSION: 1. No acute intracranial finding. 2. No fracture or malalignment of the cervical spine. Mild degenerative change. 3. Enlarged thyroid gland. Correlate with thyroid function. Consider ultrasound evaluation.
[2021-11-22 18:51] VITALS: BP 140/106; PULSE 107; RESP 10; O2SAT 94; BMI 41.8
[2021-11-22] MEDS: Naloxone HCl 0.4 MG/ML VIAL IVPUSH ×2 (19:02→19:10)
[2021-11-22 19:36] LABS: Alanine Aminotransferase 64 U/L (0-40); Albumin Level 3.8 g/dL (3.5-5.0); Alkaline Phosphatase 133 U/L (39-117); Anion Gap 16 (12-20); Aspartate Amino Transferase 45 U/L (5-37); Bilirubin Total 0.6 mg/dL (0.0-1.0); Blood Urea Nitrogen 14 mg/dL (9-16); Calcium 8.6 mg/dL (8.4-10.2); Carbon Dioxide 24 mmol/L (22-29); Chloride 104 mmol/L (96-108); Creatinine Clr Calc Pharmacy 78.6; Estimated Glomerular Filt Rate > 60; Ethanol < 10 mg/dL; Glucose Random 141 mg/dL (60-115); Potassium 4.2 mmol/L (3.3-5.1); Sodium 140 mmol/L (135-145); Total Protein 7.1 g/dL (6.5-8.0)
[2021-11-22 19:37] LABS: Basophils Absolute Auto 0.1 X10*3/uL (0.0-0.2); Basophils Percent Auto 0.4 % (0-2); Eosinophils Absolute Auto 0.2 X10*3/uL (0.0-0.4); Eosinophils Percent Auto 1.5 % (0-4); Hematocrit 42.8 % (42.0-52.0); Hemoglobin 13.9 g/dl (14.0-18.0); Imm Gran Abs Auto 0.06 X10*3/uL (0.00-0.03); Imm Gran Pct Auto 0.5 % (0.0-0.4); Lymphocytes Absolute Auto 5.4 X10*3/uL (1.2-4.9); Lymphocytes Percent Auto 41.1 % (20-40); MANUAL DIFF FLAG SCAN; Mean Corpuscular HGB Conc 32.5 g/dl (31.0-36.0); Mean Corpuscular Hemoglobin 25.3 pg (27.0-33.0); Mean Platelet Volume 10.7 fL (9.4-12.4); Monocytes Absolute Auto 0.8 X10*3/uL (0.1-1.2); Monocytes Percent Auto 6.1 % (2-11); Neutrophils Absolute Auto 6.6 x10*3/uL (2.0-8.3); Neutrophils Percent Auto 50.4 % (45-73); Platelet Count 193 X10*3/uL (160-400); Red Blood Count 5.49 X10*6/uL (4.60-5.80); Red Cell Distribution Width 15.5 % (11.0-16.0); SCAN SMEAR FLAG 1; White Blood Count 13.1 X10*3/uL (4.8-10.8)
[2021-11-22 19:57] LABS: SLIDE REVIEW VERIFIED
--- NOTE | 2021-11-22 20:05 | PC.NURSE ---
rr 4, 0.8mg IV narcan given per verbal order from provider
--- NOTE | 2021-11-22 20:06 | HO.SUDE ---
CARE Team attempts to provide SUDE, however, pt is not alert and per MD and RN will receive additional dose of Narcan. Pt should be referred for SUDE once able to participate.
[2021-11-22] MEDS: Naloxone HCl 2 MG/2 ML SYRINGE IVPUSH ×4 (20:08→23:10)
[2021-11-22] MEDS: Naloxone HCl Nasal 4 MG SPRAY NOSTRILALT (20:08)
--- NOTE | 2021-11-22 20:15 | ED_ITS ---
HPI - Overdose General Chief Complaint: Overdose Stated Complaint: unressponsive Time Seen by Provider: 11/22/21 18:57 Source: patient and EMS Mode of arrival: EMS Limitations: altered mental status History of Present Illness HPI Narrative: 66-year-old male who presents emergency department for evaluation of an uni ntentional opiate overdose. Information came from EMS. Apparently the patient found unresponsive in bed by a visiting nurse. The visiting nurse called 911 and administered 4 mg of intranasal Narcan at 18:06 hours. The S 1st responders also administered a dose intranasal Narcan at 18:15 hours. Patient had minimal response with these 2 doses. The paramedics then arrived on the scene in gave the patient 0.4 mg Narcan IV in the patient became more responsive but still was lethargic. On presentation, the patient is somnolent but arousable, is a diminished respiratory rate of 8, does respond to painful stimuli. His pupils were pinpoint. In the emergency department the patient appeared more somnolent and had a decreased respiratory rate therefore he was administered serial doses of Narcan 0.4 mg, 2 mg, 0.4 mg all IV and then 4 mg intranasally. The patient's respiratory rate improved and he became more responsive. Initially he had denied using opiates but then he the admitted to using oxycodone. complaint: accidental overdose Onset (ago): unknown Time: 18:00 Timing confirmed by: other (EMS reported that the patient was found unresponsive at 18:00 hours by visiting nurse) Intent: unknown How Overdose Was Discovered: other (Visiting nurse) Context: Accidental Overdose: wanted to get high Treatments Prior to Arrival: narcan Related Data Home Medications Medication Instructions Recorded Confirmed acetaminophen 325 mg tablet 650 mg PO Q6H PRN Pain 03/20/21 03/20/21 albuterol sulfate 90 mcg/actuation 2 puff inhalation Q4H PRN Wheezing 03/20/21 03/20/21 aerosol inhaler atenolol 50 mg tablet 1 tab PO DAILY 03/20/21 03/20/21 atorvastatin 10 mg tablet 1 tab PO DAILY 03/20/21 03/20/21 benztropine 0.5 mg tablet 0.5 mg PO BID 03/20/21 03/20/21 clozapine 100 mg tablet 300 mg PO BEDTIME 03/20/21 03/20/21 clozapine 50 mg tablet 50 mg PO BEDTIME 03/20/21 03/20/21 divalproex 250 mg tablet,delayed 1 tab PO BEDTIME 03/20/21 03/20/21 release divalproex 500 mg tablet,delayed 1 tab PO QPM 03/20/21 03/20/21 release hydroxyzine HCl 25 mg tablet 25 mg PO QID PRN Anxiety 03/20/21 03/20/21 ibuprofen 400 mg tablet 400 mg PO TID PRN Pain 03/20/21 03/20/21 lidocaine 3 % topical cream 1 appl topical TID 03/20/21 03/20/21 polyethylene glycol 3350 17 17 g PO DAILY 03/20/21 03/20/21 gram/dose oral powder tiotropium bromide 18 mcg capsule 1 cap inhalation DAILY 03/20/21 03/20/21 with inhalation device (Spiriva with HandiHaler) amlodipine 5 mg tablet 5 mg PO DAILY 08/23/21 benztropine 1 mg tablet 1 mg PO BID 08/23/21 buspirone 5 mg tablet 5 mg PO BID 08/23/21 clozapine 25 mg tablet 50 mg PO QAM 08/23/21 gabapentin 300 mg capsule 300 mg PO BID 08/23/21 hydroxyzine pamoate 25 mg capsule 25 mg PO BID 08/23/21 lisinopril 40 mg tablet 40 mg PO DAILY 08/23/21 naloxone 4 mg/actuation nasal spray 0 spray intranasal 08/23/21 tiotropium bromide 1.25 2 puff inhalation DAILY 08/23/21 mcg/actuation mist for inhalation (Spiriva Respimat) Previous Rx's Medication Instructions Recorded docusate sodium 100 mg capsule 100 mg PO BID #60 caps 03/21/21 (Colace) polyethylene glycol 3350 17 gram 17 g PO DAILY #30 ea 03/21/21 oral powder packet linaclotide 145 mcg capsule 145 mcg PO DAILY #30 caps 03/23/21 bethanechol chloride 50 mg tablet 50 mg PO BID 90 days #180 tabs 08/23/21 imipramine HCl 25 mg tablet 25 mg PO DAILY 90 days #90 tabs 10/12/21 Allergies Allergy/AdvReac Type Severity Reaction Status Date / Time No Known Allergies Allergy Verified 08/23/21 13:07 Review of Systems Review of Systems: Yes all other systems are reviewed and are negative PMFSH Past Medical History Medical History Back pain Feeling of incomplete bladder emptying H/O urinary frequency Mood swings Neurogenic bladder Nocturia Prostate nodule Weak urinary stream Social History Social History Patient Tobacco Use Status: Never used Tobacco Tobacco use type: Cigarette Cigarettes Per Day: 4 Second Hand Smoke Exposure: No Advance Directives: No Advance Directives Information Provided: No service: No Current occupational status: disabled Physical Exam Vital Signs: Vital Signs: Last Vital Signs Pulse 109 H 11/22/21 21:29 Resp 8 L 11/22/21 21:29 BP 106/81 11/22/21 21:29 Pulse Ox 93 11/22/21 21:29 O2 Del Method 11/22/21 21:29 BMI result Body Mass Index 41.8 Const: Other: Patient was somnolent but arousable, decreased respiratory rate point pupils, did respond to painful stimuli HEENT: Head: Yes normal to inspection, Yes normocephalic and Yes atraumatic Ears: external ears normal General nose exam: Normal external nose present Face and sinus: Yes normal facial exam Mouth: Normal oral and palatal mucosa present Throat: Yes posterior oropharynx normal Eyes: General: appearance normal, both eyes and all related structures Neck: Neck: Yes normal visual inspection, Yes no lymphadenopathy, Yes trachea midline and Yes supple Chest: Chest palpation & inspection: normal inspection of the chest and normal palpation of entire chest wall Resp: Effort & Inspection: normal respiratory effort and able to speak in complete sentences Auscultation: clear to auscultation bilaterally Cardio: Rate: regular rate Rhythm: regular rhythm Heart sounds: S1 normal heart sound present, S2 normal heart sound present and no murmurs GI: Inspection: Yes normal to inspection Palpation (GI): Soft to palpation, nontender and no guarding Auscultation: normal bowel sounds : General: Yes no CVA tenderness Back/Spine/Pelvis: Back: no CVA tenderness Skin: General skin exam: no rashes or lesions noted Neuro: Other: Somnolent but arousable, after Narcan administration patient's cranial nerves 2- 12 are intact, strength symmetric bilaterally, Extrem: General: Yes normal to inspection Course Course Course Narrative: 66-year-old male patient brought to emergency department for evaluation of altered mental status which did respond to Narcan administered prior to arrival. On initial presentation the patient was somnolent but arousable, he did have pinpoint pupils and did respond to painful stimuli. Patient however did have decreased respiratory rate with increased somnolence. He was treated with multiple doses of Narcan and eventually was able to tell us that he overdose accidentally on oxycodone. Patient was placed on an O2 saturation, end-tidal CO2 and pilot control operator helper. 2128: The patient's respiratory rate went down to 9 breaths per minute he was again somnolent minimally arousable painful stimuli per patient was ordered to get another 2 mg of Narcan IV. At this point and concerned that the patient may have been exposed to a long-acting narcotic/opiate therefore I ordered a Narcan drip at 2 mg per hour. I will discuss patient's presentation with the covering foot press operator. 2145: The patient did get a minimal response from the last dose of Narcan. After my discussion with Dr. Reza the following was ordered: Rogers catheter for fluid management and urine drug screen ABG, TSH with reflex T4, ammonia level, blood cultures x2. I will also obtain a CT scan of the patient's head, cervical spine, chest abdomen pelvis without IV contrast. At the end of my shift, the patient's care was turned over to my colleague, Dr. Arhcana Juan. MDM - Overdose Medical Records Attestation: I reviewed the patient's medical records. Lab Data Attestation: I reviewed the patient's lab results. Result diagrams: 11/22/21 19:07 11/22/21 19:07 Labs: Lab Results 11/22/21 11/22/21 Range/Units 19:07 19:07 WBC 13.1 H (4.8-10.8) X10*3/uL RBC 5.49 (4.60-5.80) X10*6/uL Hgb 13.9 L (14.0-18.0) g/dl Hct 42.8 (42.0-52.0) % MCV 78.0 L (80.0-98.0) fL MCH 25.3 L (27.0-33.0) pg MCHC 32.5 (31.0-36.0) g/dl RDW 15.5 (11.0-16.0) % Plt Count 193 (160-400) X10*3/uL MPV 10.7 (9.4-12.4) fL Immature Gran % (Auto) 0.5 H (0.0-0.4) % Neut % (Auto) 50.4 (45-73) % Lymph % (Auto) 41.1 H (20-40) % Coos % (Auto) 6.1 (2-11) % Eos % (Auto) 1.5 (0-4) % Baso % (Auto) 0.4 (0-2) % Lymph # (Auto) 5.4 H (1.2-4.9) X10*3/uL Coos # (Auto) 0.8 (0.1-1.2) X10*3/uL Eos # (Auto) 0.2 (0.0-0.4) X10*3/uL Baso # (Auto) 0.1 (0.0-0.2) X10*3/uL Abs Immat Gran (auto) 0.06 H (0.00-0.03) X10*3/uL Absolute Neuts (auto) 6.6 (2.0-8.3) x10*3/uL Absolute Nucleated RBC 0.000 (0.0-0.012) X10*3/uL Nucleated RBC % (auto) 0.0 (0.0-0.2) /100WBC Smear Tech's Comments VERIFIED Sodium 140 (135-145) mmol/L Potassium 4.2 (3.3-5.1) mmol/L Chloride 104 (96-108) mmol/L Carbon Dioxide 24 (22-29) mmol/L Anion Gap 16 (12-20) BUN 14 (9-16) mg/dL Creatinine 1.13 (0.5-1.4) mg/dL Estim Creat Clear Calc 78.6 Estimated GFR > 60 Random Glucose 141 H (60-115) mg/dL Calcium 8.6 D (8.4-10.2) mg/dL Total Bilirubin 0.6 (0.0-1.0) mg/dL AST 45 H D (5-37) U/L ALT 64 H (0-40) U/L Alkaline Phosphatase 133 H (39-117) U/L Total Protein 7.1 (6.5-8.0) g/dL Albumin 3.8 (3.5-5.0) g/dL Ethyl Alcohol < 10 mg/dL Critical Care Time Critical Care Time Critical Care Time: Yes Total Critical Care Time: 55 Attestation: Critical Care: The patient was critically ill with a high probability of imminent or life threatening deterioration. I spent greater than 30 minutes of discontinuous time evaluating the patient,delivering critical care at the bedside, discussing and evaluating pertinent data with consultants. Critical care time does not include time spent performing separately billable procedures or teaching. Total time spent performing critical care was 55 minutes. Discharge Plan Discharge Clinical Impression: Opiate overdose Patient Disposition: Still a Patient Prescriptions: No Action imipramine HCl 25 mg tablet 25 mg PO DAILY 90 Days Qty: 90 1RF acetaminophen 325 mg Tablet 650 mg PO Q6H PRN (Reason: Pain) benztropine 0.5 mg tablet 0.5 mg PO BID divalproex 250 mg tablet,delayed release (DR/EC) 1 tab PO BEDTIME atorvastatin 10 mg tablet 1 tab PO DAILY clozapine 100 mg tablet 300 mg PO BEDTIME Rx Instructions: TAKE WITH 50 MG TABLET FOR TOTAL DOSE OF 350 MG divalproex 500 mg tablet,delayed release (DR/EC) 1 tab PO QPM polyethylene glycol 3350 17 gram/dose powder 17 g PO DAILY albuterol sulfate 90 mcg/actuation Hfa Aerosol Inhaler 2 puff INHALATION Q4H PRN (Reason: Wheezing) atenolol 50 mg tablet 1 tab PO DAILY Spiriva with HandiHaler 18 mcg capsule, w/inhalation device 1 cap inhalation DAILY clozapine 50 mg tablet 50 mg PO BEDTIME lidocaine 3 % Cream 1 appl TOPICAL TID Rx Instructions: APPLY TO HIP hydroxyzine HCl 25 mg Tablet 25 mg PO QID PRN (Reason: Anxiety) ibuprofen 400 mg Tablet 400 mg PO TID PRN (Reason: Pain) polyethylene glycol 3350 17 gram Powder In Packet 17 g PO DAILY Qty: 30 0RF docusate sodium [Colace] 100 mg capsule 100 mg PO BID Qty: 60 0RF linaclotide 145 mcg capsule 145 mcg PO DAILY Qty: 30 0RF naloxone 4 mg/actuation spray,non-aerosol 0 spray intranasal lisinopril 40 mg tablet 40 mg PO DAILY hydroxyzine pamoate 25 mg capsule 25 mg PO BID gabapentin 300 mg capsule 300 mg PO BID benztropine 1 mg tablet 1 mg PO BID buspirone 5 mg tablet 5 mg PO BID clozapine 25 mg tablet 50 mg PO QAM Spiriva Respimat 1.25 mcg/actuation mist 2 puff inhalation DAILY amlodipine 5 mg tablet 5 mg PO DAILY bethanechol chloride 50 mg tablet 50 mg PO BID 90 Days Qty: 180 1RF
[2021-11-22 21:29] VITALS: BP 106/81; PULSE 109; RESP 8; O2SAT 93
[2021-11-22 22:00] VITALS: BP 130/94; PULSE 110; RESP 7; TEMP 35.7; O2SAT 97
[2021-11-22 22:08] LABS: ABG Base Excess -0.8 mmol/L; ABG HCO3 23 mmol/L (22-26); ABG pCO2 38 mmHg (32-45); ABG pH 7.39 (7.35-7.45); ABG pO2 101 mmHg (83-108)
[2021-11-22 22:08] LABS: ABG Refer to POC result
--- NOTE | 2021-11-22 22:11 | PC.NURSE ---
rr 8-11 at this time.
--- NOTE | 2021-11-22 22:12 | PC.NURSE ---
awaiting Narcan gtt
--- NOTE | 2021-11-22 22:17 | PC.NURSE ---
2mg Narcan administered Per MAR for rr6
[2021-11-22 22:28] LABS: TSH reflex Free T4 0.96 uIU/mL (0.32-4.0)
[2021-11-22] MEDS: Naloxone HCl 5 MG in Dextrose 5 % 95 ML 40 MG IV (22:30)
[2021-11-22 22:34] LABS: Amphetamine Screen Urine Not Detected (Not Detect); Barbiturates, Urine Not Detected (Not Detect); Benzodiazepines Screen Urine Not Detected (Not Detect); Cannabinoid Screen Urine Not Detected (Not Detect); Cocaine Screen Urine Not Detected (Not Detect); Fentanyl, urine POSITIVE (Not Detect); Opiate Screen Urine POSITIVE (Not Detect); Phencyclidine Screen Urine Not Detected (Not Detect)
[2021-11-22 22:43] LABS: COVID-19 Test Negative (Negative)
[2021-11-22 22:51] LABS: Ammonia 27 umol/L (13-55)
[2021-11-22 23:11] VITALS: BP 119/96; PULSE 110; RESP 4; TEMP 35.9; O2SAT 97
--- NOTE | 2021-11-22 23:32 | PC.NURSE ---
back from ct
[2021-11-23] VITALS (17 sets, daily range): BP systolic 110–146; BP diastolic 78–96; PULSE 81–125; RESP 9–18; TEMP 36.1–37.2; O2SAT 95–99; BMI 40.9; BMI 41.3
--- NOTE | 2021-11-23 | ECG_ITS ---
Test Reason : coverted nsr Blood Pressure : / mmHG Vent. Rate : 085 BPM Atrial Rate : 085 BPM P-R Int : 148 ms QRS Dur : 094 ms QT Int : 376 ms P-R-T Axes : 048 -01 -35 degrees QTc Int : 447 ms Normal sinus rhythm Minimal voltage criteria for LVH, may be normal variant ( R in aVL ) Nonspecific ST and T wave abnormality Abnormal ECG When compared with ECG of 20-MAR-2021 15:06, rhythm change Referred By: Abdiel Rivera Electronically Signed By:DIONI HAWTHORNE
--- NOTE | 2021-11-23 | ECG_ITS ---
Test Reason : afib Blood Pressure : / mmHG Vent. Rate : 119 BPM Atrial Rate : 000 BPM P-R Int : 000 ms QRS Dur : 094 ms QT Int : 322 ms P-R-T Axes : 000 -06 -77 degrees QTc Int : 452 ms Atrial fibrillation with rapid ventricular response Minimal voltage criteria for LVH, may be normal variant ( R in aVL ) Nonspecific T wave abnormality Abnormal ECG When compared with ECG of 20-MAR-2021 15:06, Atrial fibrillation has replaced Sinus rhythm Vent. rate has increased BY 59 BPM Referred By: Abdiel Rivera Electronically Signed By:DIONI HAWTHORNE
--- NOTE | 2021-11-23 00:05 | PC.NURSE ---
soft restraints applied due to patient attempting remove IVs, escobar x 3. Restraints applied at 0000. Pt remains confused and agitated when awake. multiple attempts were made to reorientate but was unsuccessful.
--- NOTE | 2021-11-23 00:23 | P.HPCC_ITS ---
History of Present Illness Date of Service: 11/23/21 <HUDSON Acevedo - Last Filed: 11/24/21 00:25> Attending physician on admission: [place] Reza <HUDSON Acevedo - Last Filed: 11/24/21 00:25> Chief Complaint: OD <HUDSON Acevedo - Last Filed: 11/24/21 00:25> Source of History: Pts Chart and ED records HPI: ?66-year-old patient with a past medical history of chronic low back pain, neurogenic bladder, prostate nodule, hypertension, hyperlipidemia, asthma, perip heral neuropathy, constipation, presents to us after we found unresponsive in bed his house by a visiting nurse who called 911 and administered intranasal Narcan 4 mg followed by BLS administration of the same medication with minimal response, paramedics arrived to the scene and gave him IV Narcan transfer him to the emergency room as he was still lethargic on presentation to the ER, patient's respiratory rate has gotten as low as 6 and not responding to painful stimuli with pinpoint pupils, repeated doses of Narcan IV and intranasal have been given finally given the significant somnolence the patient was placed on IV Narcan drip.? Intermittently the patient had woken up and had admitted to using oxycodone (1 tablet) however disease doubt it given the significant somnolence. ? In the emergency room, the patient had a full workup, he was hemodynamically stable with exception respiratory rate which was as low as 6, somewhat tachycardic 110 beats per minute.? White count of 13.1, H&H of 13.9 and 42 respectively, platelet 193.? Electrolytes all within normal limits and normal renal function.? AST 45, ALT 64, ammonia 27, toxicology screen is positive for opioids and fentanyl, ethyl alcohol less than 10, COVID negative. Blood gases completely unremarkable. ? The CT survey including head, neck, chest, abdomen and pelvis CTs revealed no acute pathology.? Given that the patient is hemodynamically stable, the concern is his respiratory drive and lethargy despite of Narcan administration in a continuous manner. ? ROS:? Unable to obtain as the patient is somnolent ? Past Medical History:? As above otherwise unobtainable ? Past Surgical History: ? Cholecystectomy ? Family history:? Noncontributory ? Social History:? Lives at home, is known to be a smoker unable to quantify, disable, no history of alcohol use age. ? CODE STATUS: FULL CODE ? Allergies: NKDA ? Home Medications: See Med Rec ? PHYSICAL EXAM: VS: ?130/94, 110, 7, 96.3 F, 97% on room air. General:? Alert to painful stimuli, unable to determine orientation, significantly dysarthric.? Unable to follow commands. Skin:? Intact, no lesions, edema, erythema, clubbing or cyanosis.? No ulcers. HEENT:? Head is normocephalic, atraumatic, pupils equal round reactive to light accommodation bilaterally.? Extraocular movements appear intact.? Buccal mucosa is moist, Neck is supple without lymphadenopathy. Cardiac:? Clear S1-S2, no murmurs rubs or gallops. Pulmonary:? Clear to auscultation, no wheezes, rales or rhonchi. Abdomen:? Protuberant, positive bowel sounds in all 4 quadrants.? Soft, nonte nder, no rebound or guarding.? Musculoskeletal:? Moving all 4 extremities upon request a major joints, there is no crepitus or tenderness.? The strength is 5/5 bilaterally and throughout all 4 extremities.? There is no leg edema , no calf tenderness , no leg asymmetry.? Gait not assessed at this point. Neurologic:? As above, cranial nerves 2-12 are grossly intact.? No focal deficits noted. Motor strength as above.? Vascular:? 2+ pulses upper and lower extremities distally. ? SIGNIFICANT LABORATORY DATA:? As above Sodium 140, potassium 4.2, chloride 104, carbon dioxide 24, anion gap 16, BUN 14, creatinine 1.13, random glucose 141, calcium 8.6.? TSH 0.96, albumin 3.8. ABG pH 7.39, pCO2 38, PO2 1 1, HC03 23, base excess -0.8. ? REVIEW OF IMAGES: HEAD CT / CERVICAL SPINE CT IMPRESSION:? 1. No acute intracranial finding. 2. No fracture or malalignment of the cervical spine. Mild degenerative change. 3. Enlarged thyroid gland. Correlate with thyroid function. Consider ultrasound evaluation. ? CHEST CT IMPRESSION: 1.? No worrisome finding is seen 2.? Incidental note is thyromegaly, benign hepatic cyst, status post cholecystectomy. Fatty pancreas, benign left adrenal adenoma, BPH with a Rogers catheter in the bladder ? CT ABDOMEN AND PELVIS IMPRESSION: 1.? No worrisome finding is seen 2.? Incidental note is thyromegaly, benign hepatic cyst, status post cholecystectomy. Fatty pancreas, benign left adrenal adenoma, BPH with a Rogers catheter in the bladder ? EKG REVIEW: ?No new studies ? ASSESSMENT AND PLAN: 1. Acute opioid overdose (questionable accidental) 2. Chemical encephalopathy due to the above 3. Mild transaminitis not otherwise specified 4. Stable essential hypertension 5. Microcytic anemia rule out iron deficiency, microscopic bleeding 6. Chronic back pain questionable opiate dependence 7. New onset atrial fibrillation with rapid ventricular response 8. Clinical dehydration 9. Enlarged thyroid in need of outpatient follow-up 10. Incidental benign left adrenal adenoma 11. Chronic Urinary Urgency ? PLAN OF CARE: Admit to ICU, I's and O's, vital signs, close monitoring on respiratory ability O2 saturation, continue with Narcan drip but will order rate for since initial evaluation the patient is now awake, and talking opposed to when I 1st saw him where he was difficult to arouse.? Repeat laboratories in the morning.? Keep NPO at head of the bed at 45 degree angle to avoid aspiration. If needed will manage his hypertension with IV medications but no need at this point.? He appears clinically dehydrated will give him IV fluids slowly. He appears to be in rapid AFib per hour monitor the heart rate up in the 120s to 130s, there is no EKG, 1 will be obtained; check TSH, T3 and T4, Cardizem IV for rate control in order an echo in the morning. His Chads Vasc score is 2 further is no history of significance other than hypertension age. Will discuss with Dr. Jon wilde for possibility of anticoagulating fully him although unlikely. Echo in am. He now admitted that his drug of choice is cocaine and that he sniffed it yesterday and that may have been mixed with heroin. Will start him on p.o. Cardizem as he seems to get very worked up with his urinary urgency, I do not think he requires a Cardizem drip at this point. ? GI PROPHYLAXIS: ?No need at this point DVT PROPHYLAXIS:?Lovenox sub q 173100 06:12 patient is hemodynamically stable, he converted to normal sinus rhythm with heart rate now in the 80s. His blood pressure is 114/91, he is being off Narcan for the past 3-1/2 hours and is having no respiratory issues, he is alert oriented x3 not acute distress. he has some incidental findings in regards to his thyroid which can be followed up as an outpatient the patient's medications need to be clarified as reportedly the patient he is on a lot of psych meds but he is not sure what he does take or not. The case was discussed in detail with hospitalist Dr. Reza and the patient will be sign now to their service at this point. ? Critical care time used for critical evaluation of this patient, diagnosis, treatment and coordination of care, review her records and documentation TOTAL CRITICAL CARE TIME 90 MIN . Patient's care was discussed in detail with Dr. Reza.? He is aware of all the above as well as the plan of care for this patient. <HUDSON Acevedo - Last Filed: 11/24/21 00:25> Source of History: Pts Chart and ED records HPI: ?66-year-old patient with a past medical history of chronic low back pain, neurogenic bladder, prostate nodule, hypertension, hyperlipidemia, asthma, peripheral neuropathy, constipation, presents to us after we found unresponsive in bed his house by a visiting nurse who called 911 and administered intranasal Narcan 4 mg followed by BLS administration of the same medication with minimal response, paramedics arrived to the scene and gave him IV Narcan transfer him to the emergency room as he was still lethargic on presentation to the ER, patient's respiratory rate has gotten as low as 6 and not responding to painful stimuli with pinpoint pupils, repeated doses of Narcan IV and intranasal have been given finally given the significant somnolence the patient was placed on IV Narcan drip.? Intermittently the patient had woken up and had admitted to using oxycodone (1 tablet) however disease doubt it given the significant somnolence. ? In the emergency room, the patient had a full workup, he was hemodynamically s table with exception respiratory rate which was as low as 6, somewhat tachycardic 110 beats per minute.? White count of 13.1, H&H of 13.9 and 42 respectively, platelet 193.? Electrolytes all within normal limits and normal renal function.? AST 45, ALT 64, ammonia 27, toxicology screen is positive for opioids and fentanyl, ethyl alcohol less than 10, COVID negative. Blood gases completely unremarkable. ? The CT survey including head, neck, chest, abdomen and pelvis CTs revealed no acute pathology.? Given that the patient is hemodynamically stable, the concern is his respiratory drive and lethargy despite of Narcan administration in a continuous manner. ? ROS:? Unable to obtain as the patient is somnolent ? Past Medical History:? As above otherwise unobtainable ? Past Surgical History: ? Cholecystectomy ? Family history:? Noncontributory ? Social History:? Lives at home, is known to be a smoker unable to quantify, disable, no history of alcohol use age. ? CODE STATUS: FULL CODE ? Allergies: NKDA ? Home Medications: See Med Rec ? PHYSICAL EXAM: VS: ?130/94, 110, 7, 96.3 F, 97% on room air. General:? Alert to painful stimuli, unable to determine orientation, s ignificantly dysarthric.? Unable to follow commands. Skin:? Intact, no lesions, edema, erythema, clubbing or cyanosis.? No ulcers. HEENT:? Head is normocephalic, atraumatic, pupils equal round reactive to light accommodation bilaterally.? Extraocular movements appear intact.? Buccal mucosa is moist, Neck is supple without lymphadenopathy. Cardiac:? Clear S1-S2, no murmurs rubs or gallops. Pulmonary:? Clear to auscultation, no wheezes, rales or rhonchi. Abdomen:? Protuberant, positive bowel sounds in all 4 quadrants.? Soft, nontender, no rebound or guarding.? Musculoskeletal:? Moving all 4 extremities upon request a major joints, there is no crepitus or tenderness.? The strength is 5/5 bilaterally and throughout all 4 extremities.? There is no leg edema , no calf tenderness , no leg asymmetry.? Gait not assessed at this point. Neurologic:? As above, cranial nerves 2-12 are grossly intact.? No focal deficits noted. Motor strength as above.? Vascular:? 2+ pulses upper and lower extremities distally. ? SIGNIFICANT LABORATORY DATA:? As above Sodium 140, potassium 4.2, chloride 104, carbon dioxide 24, anion gap 16, BUN 14, creatinine 1.13, random glucose 141, calcium 8.6.? TSH 0.96, albumin 3.8. ABG pH 7.39, pCO2 38, PO2 1 1, HC03 23, base excess -0.8. ? REVIEW OF IMAGES: HEAD CT / CERVICAL SPINE CT IMPRESSION:? 1. No acute intracranial finding. 2. No fracture or malalignment of the cervical spine. Mild degenerative change. 3. Enlarged thyroid gland. Correlate with thyroid function. Consider ultrasound evaluation. ? CHEST CT IMPRESSION: 1.? No worrisome finding is seen 2.? Incidental note is thyromegaly, benign hepatic cyst, status post cholecystectomy. Fatty pancreas, benign left adrenal adenoma, BPH with a Rogers catheter in the bladder ? CT ABDOMEN AND PELVIS IMPRESSION: 1.? No worrisome finding is seen 2.? Incidental note is thyromegaly, benign hepatic cyst, status post cholecystectomy. Fatty pancreas, benign left adrenal adenoma, BPH with a Rogers catheter in the bladder ? EKG REVIEW: ?No new studies ? ASSESSMENT AND PLAN: 1. Acute opioid overdose (questionable accidental) 2. Chemical encephalopathy due to the above 3. Mild transaminitis not otherwise specified 4. Stable essential hypertension 5. Microcytic anemia rule out iron deficiency, microscopic bleeding 6. Chronic back pain questionable opiate dependence 7. New onset atrial fibrillation with rapid ventricular response 8. Clinical dehydration 9. Enlarged thyroid in need of outpatient follow-up 10. Incidental benign left adrenal adenoma 11. Chronic Urinary Urgency ? PLAN OF CARE: Admit to ICU, I's and O's, vital signs, close monitoring on respiratory ability O2 saturation, continue with Narcan drip but will order rate for since initial evaluation the patient is now awake, and talking opposed to when I 1st saw him where he was difficult to arouse.? Repeat laboratories in the morning.? Keep NPO at head of the bed at 45 degree angle to avoid aspiration. If needed will manage his hypertension with IV medications but no need at this point.? He appears clinically dehydrated will give him IV fluids slowly. He appears to be in rapid AFib per hour monitor the heart rate up in the 120s to 130s, there is no EKG, 1 will be obtained; check TSH, T3 and T4, Cardizem IV for rate control in order an echo in the morning. His Chads Vasc score is 2 further is no history of significance other than hypertension age. Will discuss with Dr. Webb a bur for possibility of anticoagulating fully him although unlikely. Echo in am. He now admitted that his drug of choice is cocaine and that he sniffed it yesterday and that may have been mixed with heroin. Will start him on p.o. Cardizem as he seems to get very worked up with his urinary urgency, I do not think he requires a Cardizem drip at this point. ? GI PROPHYLAXIS: ?No need at this point DVT PROPHYLAXIS:?Lovenox sub q [id number] 06:12 patient is hemodynamically stable, he converted to normal sinus rhythm with heart rate now in the 80s. His blood pressure is 114/91, he is being off Narcan for the past 3-1/2 hours and is having no respiratory issues, he is alert oriented x3 not acute distress. he has some incidental findings in regards to his thyroid which can be followed up as an outpatient the patient's medications need to be clarified as reportedly the patient he is on a lot of psych meds but he is not sure what he does take or not. The case was discussed in detail with hospitalist Dr. Reza and the patient will be sign now to their service at this point. ? Critical care time used for critical evaluation of this patient, diagnosis, treatment and coordination of care, review her records and documentation TOTAL CRITICAL CARE TIME 75 MIN . Patient's care was discussed in detail with Dr. eRza.? He is aware of all the above as well as the plan of care for this patient. <[place] Reza MD - Last Filed: 11/23/21 06:13> [facility] Past Medical History Medical History: Medical History (Updated 11/23/21 @ 10:40 by [place] Reza MD) Back pain Feeling of incomplete bladder emptying H/O urinary frequency Mood swings Neurogenic bladder Nocturia Polysubstance abuse Prostate nodule Weak urinary stream <HUDSON Acevedo - Last Filed: 11/24/21 00:25> Social History Social History: Social History Household Members: Other Housing: Other Housing Other:: boarding house Do you presently have visiting nurse or other home services: Yes Unable to assess alcohol history related to: Refusing to respond Alcohol intake: current Patient Tobacco Use Status: Current everyday Tobacco user Tobacco use type: Cigarette Cigarettes Per Day: 4 Smoked in Last 30 Days: Yes Patient Given Instructions on How to Stop Smoking: Yes Date Education Initiated: 11/23/21 Second Hand Smoke Exposure: No Use of substances other than those prescribed or required for medical reasons: Yes Substance Use Type: Crack/Cocaine and Opiates Currently Displaying Signs/Symptoms of Drug Intoxication Withdrawal: No Spiritual Healthcare Practices: unknown Advance Directives: No Advance Directives Information Provided: No Do you have thoughts of harming others: None Do you have a plan to hurt others: No Plan Recently lost weight without trying: No service: No Current occupational status: unemployed and disabled <HUDSON Acevedo - Last Filed: 11/24/21 00:25> Meds Allergies/Adverse reactions: Allergies Allergy/AdvReac Type Severity Reaction Status Date / Time No Known Allergies Allergy Verified 08/23/21 13:07 <HUDSON Acevedo - Last Filed: 11/24/21 00:25> Active Medications: Current Medications Naloxone HCl 5 mg/ Dextrose 100 mls @ 40 mls/hr IV .Q2H30M SHAY Last Admin: 11/22/21 22:30 Dose: 2 mg/hr, 40 mls/hr Naloxone HCl (Naloxone Hcl 2 Mg/2 Ml Syringe) 2 mg IVPUSH ONCE PRN PRN Reason: RR<8, Last Admin: 11/22/21 23:10 Dose: 2 mg Naloxone HCl (Naloxone Hcl Nasal Take Home 4 Mg [place]) 4 mg NOSTRILALT ONCE PRN PRN Reason: RR<8,altered mental status <HUDSON Acevedo - Last Filed: 11/24/21 00:25> Home medications: Home Medications Medication Instructions Recorded Confirmed Last Taken Type amlodipine 5 mg tablet 1 tab PO DAILY 11/23/21 11/23/21 Unknown History atenolol 50 mg tablet 1 tab PO DAILY 11/23/21 11/23/21 Unknown History atorvastatin 10 mg tablet 1 tab PO BEDTIME 11/23/21 11/23/21 Unknown History benztropine 1 mg tablet 1 tab PO BID 11/23/21 11/23/21 Unknown History bethanechol chloride 50 mg tablet 1 tab PO BID 11/23/21 11/23/21 Unknown History buspirone 5 mg tablet 1 tab PO DAILY@0800,1700 11/23/21 11/23/21 Unknown History clozapine 100 mg tablet 3 tab PO BEDTIME 11/23/21 11/23/21 Unknown History clozapine 25 mg tablet 2 tab PO BEDTIME 11/23/21 11/23/21 Unknown History clozapine 50 mg tablet 1 tab PO DAILY 11/23/21 11/23/21 Unknown History divalproex 250 mg tablet,delayed 1 tab PO BEDTIME 11/23/21 11/23/21 Unknown History release (Depakote) divalproex 500 mg tablet,delayed 1 tab PO BEDTIME 11/23/21 11/23/21 Unknown History release (Depakote) mirabegron 25 mg tablet,extended 25 mg PO DAILY 11/23/21 11/23/21 Unknown Histo ry release 24 hr (Myrbetriq) polyethylene glycol 3350 17 gram 17 g PO DAILY PRN Constipation 11/23/21 11/23/21 Unknown History oral powder packet tiotropium bromide 18 mcg capsule 1 cap inhalation DAILY 11/23/21 11/23/21 Unknown History with inhalation device (Spiriva with HandiHaler) <HUDSON Acevedo - Last Filed: 11/24/21 00:25> Physical Exam Vital Signs: Vital Signs: Last Vital Signs Temp 97.0 F 11/23/21 00:00 Pulse 108 H 11/23/21 00:00 Resp 9 L 11/23/21 00:00 BP 138/88 11/23/21 00:00 Pulse Ox 98 11/23/21 00:00 O2 Del Method 11/23/21 00:00 BMI result Body Mass Index 41.8 <HUDSON Acevedo - Last Filed: 11/24/21 00:25> Results Labs CBC and Chem 7: : 11/23/21 05:12 11/23/21 05:12 <HUDSON Acevedo - Last Filed: 11/24/21 00:25> Labs: Laboratory Results - last 24 hr 11/22/21 11/22/21 11/22/21 19:07 19:07 22:02 MCV 78.0 L MCH 25.3 L MCHC 32.5 RDW 15.5 Plt Count 193 MPV 10.7 Immature Gran % (Auto) 0.5 H Neut % (Auto) 50.4 Lymph % (Auto) 41.1 H [place] % (Auto) 6.1 Eos % (Auto) 1.5 Baso % (Auto) 0.4 Lymph # (Auto) 5.4 H [place] # (Auto) 0.8 Eos # (Auto) 0.2 Baso # (Auto) 0.1 Abs Immat Gran (auto) 0.06 H Absolute Neuts (auto) 6.6 Absolute Nucleated RBC 0.000 Nucleated RBC % (auto) 0.0 Smear Tech's Comments VERIFIED O2 Saturation ABG pH at Pt Temp ABG pCO2 at Pt Temp ABG pO2 at Pt Temp ABG HCO3 ABG Base Excess (Actual) Anion Gap 16 Estim Creat Clear Calc 78.6 Estimated GFR > 60 Random Glucose 141 H Calcium 8.6 D Total Bilirubin 0.6 AST 45 H D ALT 64 H Alkaline Phosphatase 133 H Ammonia 27 Total Protein 7.1 Albumin 3.8 TSH 0.96 Urine Opiates Screen Urine Fentanyl Screen Ur Barbiturates Screen Ur Phencyclidine Scrn Ur Amphetamines Screen U Benzodiazepines Scrn Urine Cocaine Screen U Marijuana (THC) Screen Ethyl Alcohol < 10 COVID-19 (MARCELA) COVID-19 [employer] 11/22/21 11/22/21 11/22/21 22:02 22:04 22:23 MCV MCH MCHC RDW Plt Count MPV Immature Gran % (Auto) Neut % (Auto) Lymph % (Auto) [place] % (Auto) Eos % (Auto) Baso % (Auto) Lymph # (Auto) [place] # (Auto) Eos # (Auto) Baso # (Auto) Abs Immat Gran (auto) Absolute Neuts (auto) Absolute Nucleated RBC Nucleated RBC % (auto) Smear Tech's Comments O2 Saturation 99.0 ABG pH at Pt Temp 7.39 ABG pCO2 at Pt Temp 38 ABG pO2 at Pt Temp 101 ABG HCO3 23 ABG Base Excess (Actual) -0.8 Anion Gap Estim Creat Clear Calc Estimated GFR Random Glucose Calcium Total Bilirubin AST ALT Alkaline Phosphatase Ammonia Total Protein Albumin TSH Urine Opiates Screen POSITIVE H Urine Fentanyl Screen POSITIVE H Ur Barbiturates Screen Not Detected Ur Phencyclidine Scrn Not Detected Ur Amphetamines Screen Not Detected U Benzodiazepines Scrn Not Detected Urine Cocaine Screen Not Detected U Marijuana (THC) Screen Not Detected Ethyl Alcohol COVID-19 (MARCELA) Negative COVID-19 [facility] See Note <HUDSON Acevedo - Last Filed: 11/24/21 00:25> Imaging Radiologist's Impressions: Impressions Abdomen/Pelvis CT 11/22/21 23:30 IMPRESSION: 1. No worrisome finding is seen 2. Incidental note is thyromegaly, benign hepatic cyst, status post cholecystectomy. Fatty pancreas, benign left adrenal adenoma, BPH with a Rogers catheter in the bladder Fleischner guidelines were followed. Cervical Spine CT 11/22/21 23:30 IMPRESSION: 1. No acute intracranial finding. 2. No fracture or malalignment of the cervical spine. Mild degenerative change. 3. Enlarged thyroid gland. Correlate with thyroid function. Consider ultrasound evaluation. Chest CT 11/22/21 23:30 IMPRESSION: 1. No worrisome finding is seen 2. Incidental note is thyromegaly, benign hepatic cyst, status post cholecystectomy. Fatty pancreas, benign left adrenal adenoma, BPH with a Rogers catheter in the bladder Fleischner guidelines were followed. Head CT 11/22/21 23:30 IMPRESSION: 1. No acute intracranial finding. 2. No fracture or malalignment of the cervical spine. Mild degenerative change. 3. Enlarged thyroid gland. Correlate with thyroid function. Consider ultrasound evaluation. <HUDSON Acevedo - Last Filed: 11/24/21 00:25>
[2021-11-23] MEDS: Naloxone HCl 5 MG in Dextrose 5 % 95 ML 40 MG IV (00:33)
--- NOTE | 2021-11-23 01:29 | PC.NURSE ---
Pt increasing agitation and confusion RR 10 on 2mg narcan gtt. Pt needs frequent orientation regarding situation, event, and course of care. Pt remains unable to verbalized instruction regarding restraint release criteria.
[2021-11-23] MEDS: Lactated Ringers 1,000 ML 100 ML IVCONT ×3 (02:00→20:35)
[2021-11-23 02:23] LABS: Magnesium 2.2 mg/dL (1.6-2.6); Phosphorus 5.8 mg/dL (2.7-4.5)
[2021-11-23] MEDS: dilTIAZem HCL 50 MG/10 ML VIAL 10 MG IVPUSH ×2 (02:23→03:58)
[2021-11-23 02:31] LABS: B Type Natriuretic Peptide 17 pg/mL (<100); Troponin-I High Sensitivity 9.5 ng/L (<3.5-35.0)
[2021-11-23 02:56] LABS: Free T4 (Free Thyroxine) 0.83 ng/dL (0.71-1.85)
[2021-11-23 05:30] LABS: MANUAL DIFF FLAG NO
[2021-11-23 05:33] LABS: Basophils Percent Auto 0.1 % (0-2); Eosinophils Percent Auto 0.2 % (0-4); Hemoglobin 14.1 g/dl (14.0-18.0); Imm Gran Abs Auto 0.06 X10*3/uL (0.00-0.03); Imm Gran Pct Auto 0.5 % (0.0-0.4); Lymphocytes Percent Auto 16.1 % (20-40); Mean Corpuscular Hemoglobin 24.7 pg (27.0-33.0); Mean Corpuscular Volume 77.1 fL (80.0-98.0); Mean Platelet Volume 10.8 fL (9.4-12.4); Monocytes Absolute Auto 0.7 X10*3/uL (0.1-1.2); Monocytes Percent Auto 5.9 % (2-11); Neutrophils Absolute Auto 9.4 x10*3/uL (2.0-8.3); Neutrophils Percent Auto 77.2 % (45-73); Platelet Count 191 X10*3/uL (160-400); Red Blood Count 5.71 X10*6/uL (4.60-5.80); Red Cell Distribution Width 15.3 % (11.0-16.0); White Blood Count 12.1 X10*3/uL (4.8-10.8)
[2021-11-23] MEDS: dilTIAZem HCL 30 MG TABLET PO ×3 (05:46→20:35)
[2021-11-23] MEDS: Enoxaparin Sodium 40 MG/0.4 ML SYRINGE SUBCUT (05:46)
[2021-11-23] MEDS: Phenazopyridine HCL 100 MG TABLET PO (05:46)
[2021-11-23 05:53] LABS: Anion Gap 19 (12-20); Blood Urea Nitrogen 14 mg/dL (9-16); Calcium 9.3 mg/dL (8.4-10.2); Carbon Dioxide 23 mmol/L (22-29); Chloride 102 mmol/L (96-108); Estimated Glomerular Filt Rate > 60; Glucose Fasting 127 mg/dL (60-99); Potassium 4.4 mmol/L (3.3-5.1); Sodium 140 mmol/L (135-145)
--- NOTE | 2021-11-23 07:00 | CA_ITS ---
Transthoracic Echocardiogram Patient (Last, First, Middle): Lance Julien, Gender: Male Date of : 1955 Age: 66 Procedure Date: 11/23/2021 Procedure Type: Transthoracic Echocardiogram Location: ICU Height: 167.64 cm Weight: 116.12 kg BSA: 2.22 m2 Heart Rate: bpm BP: 124 / 84 mmHg Drain Layer: MARBIN Referring MD: Abdiel TREVIÑO Symptoms: a fib Study Quality: Technically Difficult/contrast ECG Rhythm: Sinus Conclusions: - LVEF difficult to assess in spite of contrast use; suspect > 50%. - No obvious valvular pathology seen on this study.(limited visualization). Findings Procedure Information Contrast agent, definity, is being given per protocol without apparent complications. Left Ventricle Normal left ventricular cavity size. There is mildly increased left ventricular wall thickness. Regional wall motion abnormalities can not be excluded due to suboptimal endocardial definition. Diastolic function is normal for age. LVEF difficult to assess in spite of contrast use; suspect > 50%. Right Ventricle The right ventricle was not well visualized. There is normal right ventricular systolic function. Atria Both atria are normal in size. Aortic Valve The aortic valve was not well visualized. There is no aortic valve stenosis. There is no aortic valve regurgitation. Mitral Valve The mitral valve was not well visualized. There is no mitral valve regurgitation. There is no mitral valve stenosis. Pulmonic Valve The pulmonic valve was not well visualized. Tricuspid Valve The tricuspid valve was not well visualized. There is trace tricuspid valve regurgitation. Tricuspid regurgitation envelope is inadequate for calculation of right ventricular systolic pressure. Great Vessels The aorta was not well visualized. The sinuses of valsalva and sino tubular ridge are normal in size. Venous The inferior vena cava was not well visualized. Pericardium/Pleural There is no evidence of pericardial effusion. Prior Study Comparison No prior study available for comparison. Recommendations, Care & Conclusions No obvious valvular pathology seen on this study. Measurements 2D Linear Measurements IVSd: 1.11 0.6-0.9/0.6-1.0 cm LVIDd: 4.69 3.9-5.3/4.2-5.9 cm LVIDd Index: 2.11 2.4-3.2/2.2-3.1 cm/m2 LVIDs: 3.66 2.0-3.6 cm LVPWd: 1.11 0.7-1.1 cm LV Mass: 235.85 67-162/88-224 g LV Mass Index: 106.24 43-95/49-115 g/m2 LVOT Diam: 2.00 3.0+(-)1.3 cm Mitral Valve MV Pk E: 0.42 MV PK A: 0.79 MV Decel Time: 278.00 E/A: 0.50 E'Lateral: 6.53 E'Medial: 5.98 E/E' Med: 7.10 E/E' Lat: 6.50 PHT: 81.00 MVA PHT: 2.72 Decel [place]: 1.53 Aortic Valve AoV Pk Pedro: 1.06 AoV Mn Pedro: 0.78 AoV VTI: 0.22 AoV Pk Grad: 4.00 Aov Mn Grad: 3.00 KIMANI Cont.VTI: 1.99 LVOT LVOT Pk Pedro: 0.78 LVOT Mn Pedro: 0.53 LVOT VTI: 0.14 LVOT Pk Grad: 2.00 LVOT Mn Grad: 1.00 LVOT Diam: 2.00 LVOT Area: 3.14 Diastolic Function MV Pk E: 0.42 MV Pk A: 0.79 E/A: 0.50 E'Medial: 5.98 E/E' Med: 7.10 E' Laterial: 6.53 E/E' Lat: 6.50 Right Ventricle TVS' Pedro: 14.90 Great Vessels Aorta Sinus of Valsalva: 4.01 2.0-3.[address] [place]: 3.34 1.7-3.4 cm Updated in Other Vendor System with Status of Final Lex Garrison MD electronically signed on 11/23/2021 4:26:21 PM with status of Final
--- NOTE | 2021-11-23 07:40 | PC.NURSE ---
report taken from joycelyn kenyon pt here r/t unresponsiveness at home w/ positive response to high amounts of narcan. pt is +for fentanyl and opiates on [place]on. pt is resting semi fowlers in bed, rr even/non labored, alert to verbal stimuli. pt reports no pain, no outward distress noted on exam. escobar w minimal urinary output, on pyridium an urine appears dark orange. pt in bl soft restraint d/t pulling at iv lines and escobar cath over night. wctm for dc needs. see chart for restraint documentation.
--- NOTE | 2021-11-23 10:01 | MHC.CM.PN ---
This newspaper writer attempted to meet with patient- he was awake but not able to engage with full CM assessment. He was able to state he lives in '[place]'. Call placed to Patient's PAC program wrap-around services @ [phone] the RN was able to provide all information about patient. - Patient lives @ the [facility] in [place] @ [address] [place] - PCP: Dr. Arteaga @ [facility] (referral sent) - No HCP/guardian, has sister Ifeoma Levy @ [phone] (attempted to call & leave VM- awaiting return call) - He was evicted from [employer] and is supposed to be moving to [facility] home - Vax'd: up-to-date may 2020, flu shot - PAC program is requesting d/c sumary on d/c faxed to [phone] - They will transport pt from hospital back to [facility] in m-, if it's the weekend they need time to arrange - IMM delivered
--- NOTE | 2021-11-23 10:09 | PHA.MEDREC ---
Pharmacy Consult ? Medication Reconciliation Pharmacy has completed the medication reconciliation. Called [facility] ([phone])and spoke to Cindy who faxed current medication list; pt on clozaril but unsure of when last doses were administered
--- NOTE | 2021-11-23 10:33 | PM.CCPN ---
Subjective Subjective Date of Service: 11/23/21 Interval History: 66-year-old polysubstance abuser altered mental status pupillary vaso constriction the certainly indicating the no the opiate aspect but he was positive for fentanyl and claims that he took but he thought might have been the no cocaine from a friend and probably was a synthetic because that did not test positively on his tox screen did well overnight perfectly stable hemodynamically his respiratory rate was some low a somewhat low but it responded to Narcan so he remained on a Narcan drip in after 3 or 4 hours he was still stable easily arousable as cardiogram showed a nonspecific IVCD along with left ventricular enlargement by voltage so bedside echo just demonstrates mild concentric hypertrophy but globally normal systolic wall motion and no primary valve or pericardial disease and RV function is normal as well lungs were clear by imaging his head CT was also negative and the rest of his metabolic workup was all negative no alcohol level no ammonia level no thyroid dysfunction etc. blood gas was normal as well so this was all his drug abuse and he is doing very well with no other medical morbidity Critical Care Time (minutes): 35 Physical Exam Vital Signs: Vital Signs: Last Vital Signs Temp 98.9 F 11/23/21 10:00 Pulse 81 11/23/21 10:00 Resp 10 L 11/23/21 10:00 BP 127/79 11/23/21 10:00 Pulse Ox 97 11/23/21 10:00 O2 Del Method 11/23/21 10:00 O2 Flow Rate 0.5 11/23/21 10:00 BMI result Body Mass Index 41.3 perfectly normal vital signs he did have a paroxysm of atrial fibrillation but restored to sinus rhythm after little Cardizem lungs and abdomen a both benign and and his skin is intact with no acrocyanosis Objective Data Labs CBC & Chem 7: 11/23/21 05:12 11/23/21 05:12 Labs: Laboratory Results - last 24 hr 11/22/21 11/22/21 11/22/21 19:07 19:07 19:07 WBC 13.1 H RBC 5.49 Hgb 13.9 L Hct 42.8 MCV 78.0 L MCH 25.3 L MCHC 32.5 RDW 15.5 Plt Count 193 MPV 10.7 Immature Gran % (Auto) 0.5 H Neut % (Auto) 50.4 Lymph % (Auto) 41.1 H Sheridan % (Auto) 6.1 Eos % (Auto) 1.5 Baso % (Auto) 0.4 Lymph # (Auto) 5.4 H Sheridan # (Auto) 0.8 Eos # (Auto) 0.2 Baso # (Auto) 0.1 Abs Immat Gran (auto) 0.06 H Absolute Neuts (auto) 6.6 Absolute Nucleated RBC 0.000 Nucleated RBC % (auto) 0.0 Smear Tech's Comments VERIFIED O2 Saturation ABG pH at Pt Temp ABG pCO2 at Pt Temp ABG pO2 at Pt Temp ABG HCO3 ABG Base Excess (Actual) Sodium 140 Potassium 4.2 Chloride 104 Carbon Dioxide 24 Anion Gap 16 BUN 14 Creatinine 1.13 Estim Creat Clear Calc 78.6 Estimated GFR > 60 Random Glucose 141 H Fasting Glucose Calcium 8.6 D Phosphorus 5.8 H Magnesium 2.2 Total Bilirubin 0.6 AST 45 H D ALT 64 H Alkaline Phosphatase 133 H Ammonia Troponin I High Sens B-Natriuretic Peptide Total Protein 7.1 Albumin 3.8 TSH 0.96 Free T4 0.83 Total T3 Cancelled Urine Opiates Screen Urine Fentanyl Screen Ur Barbiturates Screen Ur Phencyclidine Scrn Ur Amphetamines Screen U Benzodiazepines Scrn Urine Cocaine Screen U Marijuana (THC) Screen Ethyl Alcohol < 10 COVID-19 ([facility]ELA) COVID-19 Clin Com 11/22/21 11/22/21 11/22/21 22:02 22:02 22:02 WBC RBC Hgb Hct MCV MCH MCHC RDW Plt Count MPV Immature Gran % (Auto) Neut % (Auto) Lymph % (Auto) Sheridan % (Auto) Eos % (Auto) Baso % (Auto) Lymph # (Auto) Sheridan # (Auto) Eos # (Auto) Baso # (Auto) Abs Immat Gran (auto) Absolute Neuts (auto) Absolute Nucleated RBC Nucleated RBC % (auto) Smear Tech's Comments O2 Saturation ABG pH at Pt Temp ABG pCO2 at Pt Temp ABG pO2 at Pt Temp ABG HCO3 ABG Base Excess (Actual) Sodium Potassium Chloride Carbon Dioxide Anion Gap BUN Creatinine Estim Creat Clear Calc Estimated GFR Random Glucose Fasting Glucose Calcium Phosphorus Magnesium Total Bilirubin AST ALT Alkaline Phosphatase Ammonia 27 Troponin I High Sens 9.5 D B-Natriuretic Peptide 17 Total Protein Albumin TSH Free T4 Total T3 Urine Opiates Screen POSITIVE H Urine Fentanyl Screen POSITIVE H Ur Barbiturates Screen Not Detected Ur Phencyclidine Scrn Not Detected Ur Amphetamines Screen Not Detected U Benzodiazepines Scrn Not Detected Urine Cocaine Screen Not Detected U Marijuana (THC) Screen Not Detected Ethyl Alcohol COVID-19 (MARCELA) COVID-[employer] 11/22/21 11/22/21 11/23/21 22:04 22:23 05:12 WBC 12.1 H RBC 5.71 Hgb 14.1 Hct 44.0 MCV 77.1 L MCH 24.7 L MCHC 32.0 RDW 15.3 Plt Count 191 MPV 10.8 Immature Gran % (Auto) 0.5 H Neut % (Auto) 77.2 H Lymph % (Auto) 16.1 L Sheridan % (Auto) 5.9 Eos % (Auto) 0.2 Baso % (Auto) 0.1 Lymph # (Auto) 2.0 Sheridan # (Auto) 0.7 Eos # (Auto) 0.0 Baso # (Auto) 0.0 Abs Immat Gran (auto) 0.06 H Absolute Neuts (auto) 9.4 H Absolute Nucleated RBC 0.000 Nucleated RBC % (auto) 0.0 Smear Tech's Comments O2 Saturation 99.0 ABG pH at Pt Temp 7.39 ABG pCO2 at Pt Temp 38 ABG pO2 at Pt Temp 101 ABG HCO3 23 ABG Base Excess (Actual) -0.8 Sodium Potassium Chloride Carbon Dioxide Anion Gap BUN Creatinine Estim Creat Clear Calc Estimated GFR Random Glucose Fasting Glucose Calcium Phosphorus Magnesium Total Bilirubin AST ALT Alkaline Phosphatase Ammonia Troponin I High Sens B-Natriuretic Peptide Total Protein Albumin TSH Free T4 Total T3 Urine Opiates Screen Urine Fentanyl Screen Ur Barbiturates Screen Ur Phencyclidine Scrn Ur Amphetamines Screen U Benzodiazepines Scrn Urine Cocaine Screen U Marijuana (THC) Screen Ethyl Alcohol COVID-19 (MARCELA) Negative COVID-[employer] See Note 11/23/21 11/23/21 05:12 19:07 WBC RBC Hgb Hct MCV MCH MCHC RDW Plt Count MPV Immature Gran % (Auto) Neut % (Auto) Lymph % (Auto) Sheridan % (Auto) Eos % (Auto) Baso % (Auto) Lymph # (Auto) Sheridan # (Auto) Eos # (Auto) Baso # (Auto) Abs Immat Gran (auto) Absolute Neuts (auto) Absolute Nucleated RBC Nucleated RBC % (auto) Smear Tech's Comments O2 Saturation ABG pH at Pt Temp ABG pCO2 at Pt Temp ABG pO2 at Pt Temp ABG HCO3 ABG Base Excess (Actual) Sodium 140 Potassium 4.4 Chloride 102 Carbon Dioxide 23 Anion Gap 19 BUN 14 Creatinine 1.09 Estim Creat Clear Calc 81.0 Estimated GFR > 60 Random Glucose Fasting Glucose 127 H Calcium 9.3 D Phosphorus Magnesium Total Bilirubin AST ALT Alkaline Phosphatase Ammonia Troponin I High Sens Cancelled B-Natriuretic Peptide Total Protein Albumin TSH Free T4 Total T3 Urine Opiates Screen Urine Fentanyl Screen Ur Barbiturates Screen Ur Phencyclidine Scrn Ur Amphetamines Screen U Benzodiazepines Scrn Urine Cocaine Screen U Marijuana (THC) Screen Ethyl Alcohol COVID-19 (MARCELA) COVID-19 Clin Com Progress Note: A&P Assessment and plan (1) Opiate overdose: Status: Acute (2) Polysubstance abuse: Status: Acute (3) Altered mental status: Status: Acute (4) Encephalopathy acute: Status: Acute (5) Urinary retention with incomplete bladder emptying: Status: Acute (6) Abnormal CT of liver: Status: Acute Plan so the plan at this point is just to send up stairs to the floor maybe needs to be established with our substance Abuse Service Quality Stroke Does the patient have a stroke diagnosis?: No VTE Prior VTE?: No VTE Risk Level:: Medical - low VTE Device Contraindication: N/A - Device Ordered VTE Drug Contraindication: Treatment Not Indicated
[2021-11-24] VITALS (7 sets, daily range): BP systolic 116–141; BP diastolic 77–86; PULSE 80–86; RESP 16–20; TEMP 36.2–36.9; O2SAT 94–98; BMI 42.0
[2021-11-24] MEDS: Enoxaparin Sodium 40 MG/0.4 ML SYRINGE SUBCUT (05:22)
[2021-11-24] MEDS: dilTIAZem HCL 30 MG TABLET PO (05:22)
[2021-11-24] MEDS: Lactated Ringers 1,000 ML 100 ML IVCONT (08:40)
[2021-11-24] MEDS: Benztropine Mesylate 1 MG TABLET PO (09:38)
[2021-11-24] MEDS: Mirabegron 25 MG TAB.ER.24H PO (09:38)
[2021-11-24] MEDS: Divalproex Sodium 500 MG TABLET.DR PO (09:38)
[2021-11-24] MEDS: atenoloL 50 MG TABLET PO (09:38)
[2021-11-24] MEDS: Divalproex Sodium 250 MG TABLET.DR PO (09:38)
[2021-11-24] MEDS: cloZAPine 25 MG TABLET 50 MG PO (09:38)
--- NOTE | 2021-11-24 10:09 | PM.CNCAR ---
History of Present Illness History of Present Illness Date of Service: 11/24/21 Chief complaint: unressponsive Narrative: This is a cardiology consultation regarding atrial fibrillation. Patient has a history of low back pain, neurogenic bladder, prostate nodule, hypertension, hyperlipidemia, asthma, peripheral neuropathy and medius comorbidities. It seems that he was found unresponsive. Then brought to the ER. He got IV Narcan as well as intranasally and then it seems recovered completely. Treated as acute opioid overdose. In this setting, it seems he had atrial fibrillation with rapid rate but currently back in sinus rhythm. The actual duration is not very clear. However, he has been sinus rhythm in the floor. Otherwise, on review of H&P, patient had stated that he also uses cocaine and then possibly mixed that with heroin too. At this time, he is describing aches and pains all over the body but nothing specific for cardiac. Denies any shortness of breath or palpitations or any other cardiac complaints. No documented coronary disease, myocardial infarction. It seems has a long history of substance abuse. Review of Systems Review of Systems: Yes all other systems are reviewed and are negative Constitutional: Constitutional: Reports as per HPI Eyes: Eyes: Reports as per HPI ENT: Reports as per HPI Cardiovascular: Cardiovascular: Reports as per HPI, Denies acrocyanosis, Denies cool extremities, Denies chest pain, Denies leg edema, Denies lightheadedness, Denies palpitations and Denies dyspnea Respiratory: Respiratory: Reports as per HPI, Reports no additional respiratory complaints and Denies dyspnea Gastrointestinal: Gastrointestinal: Reports as per HPI and Reports no additional gastrointestinal complaints Genitourinary: Genitourinary: Reports no additional male genitourinary complaints and Reports as per HPI Musculoskeletal: Musculoskeletal: Reports no additional musculoskeletal complaints and Reports as per HPI Integumentary/Breasts: Skin/Breast: Reports system reviewed and no additional complaints, except as docu Neurologic: Reports system reviewed and no additional complaints, except as documented, Reports as per HPI and Reports Abnormal speech present Psychiatric: Psychiatric: Reports no additional psychiatric complaints and Reports as per HPI Endocrine: Endocrine: Reports no additional endocrine complaints, Reports as per HPI and Denies palpitations Hematologic/Lymphatic: Hematologic/Lymphatic: Reports no additional hematologic/lymphatic complaints and Reports as per HPI Allergic/Immunologic: Allergic/Immunologic: Reports no additional allergic/immunologic complaints and Reports as per HPI [facility] Past Medical History Medical History (Updated 11/24/21 @ 10:14 by Lex Garrison MD) Back pain Feeling of incomplete bladder emptying H/O urinary frequency Mood swings Neurogenic bladder Nocturia Polysubstance abuse Prostate nodule Weak urinary stream Family History Family History (Updated 11/24/21 @ 10:13 by Lex Garrison MD) Mother Colon cancer Emphysema lung Social History Social History Household Members: Other Housing: Other Housing Other:: boarding house Do you presently have visiting nurse or other home services: Yes Unable to assess alcohol history related to: Refusing to respond Alcohol intake: current Patient Tobacco Use Status: Current everyday Tobacco user Tobacco use type: Cigarette Cigarettes Per Day: 4 Smoked in Last 30 Days: Yes Patient Given Instructions on How to Stop Smoking: Yes Date Education Initiated: 11/23/21 Second Hand Smoke Exposure: No Use of substances other than those prescribed or required for medical reasons: Yes Substance Use Type: Crack/Cocaine and Opiates Currently Displaying Signs/Symptoms of Drug Intoxication Withdrawal: No Spiritual Healthcare Practices: unknown Advance Directives: No Advance Directives Information Provided: No Do you have thoughts of harming others: None Do you have a plan to hurt others: No Plan Recently lost weight without trying: No service: No Current occupational status: unemployed and disabled Meds Allergies Allergy/AdvReac Type Severity Reaction Status Date / Time No Known Allergies Allergy Verified 08/23/21 13:07 Active Medications: Current Medications Atenolol (Atenolol 50 Mg Tablet) 50 mg PO DAILY [facility]; Protocol Last Admin: 11/24/21 09:38 Dose: 50 mg Atorvastatin Calcium (Atorvastatin Calcium 10 Mg Tablet) 10 mg PO BEDTIME [facility] Benztropine Mesylate (Benztropine Mesylate 1 Mg Tablet) 1 mg PO BID [facility] Last Admin: 11/24/21 09:38 Dose: 1 mg Buspirone HCl (Buspirone Hcl 5 Mg Tablet) 5 mg PO DAILY@0800,1700 [facility] Clozapine (Clozapine 100 Mg Tablet) 300 mg PO BEDTIME [facility] Clozapine (Clozapine 25 Mg Tablet) 50 mg PO BEDTIME [facility] Clozapine (Clozapine 25 Mg Tablet) 50 mg PO DAILY [facility] Last Admin: 11/24/21 09:38 Dose: 50 mg Divalproex Sodium (Divalproex Sodium 250 Mg Tablet.) 250 mg PO BEDTIME [facility] Last Admin: 11/24/21 09:38 Dose: 250 mg Divalproex Sodium (Divalproex Sodium 500 Mg Tablet.) 500 mg PO BEDTIME [facility] Last Admin: 11/24/21 09:38 Dose: 500 mg Enoxaparin Sodium (Enoxaparin Sodium 40 Mg/0.4 Ml Syringe) 40 mg SUBCUT Q24H [facility] Last Admin: 11/24/21 05:22 Dose: 40 mg Mirabegron (Mirabegron 25 Mg Tab.Er.24h) 25 mg PO DAILY [facility] Last Admin: 11/24/21 09:38 Dose: 25 mg Non-Formulary Medication (Bethanechol Chloride) 1 tab PO BID [facility] Polyethylene Glycol (Polyethylene Glycol 3350 17 Gm Powd.Pack) 17 gm PO DAILY PRN PRN Reason: Constipation Tiotropium [place] (Tiotropium [place] 18 Mcg Cap.W.Dev) 1 puff INHALE DAILY [facility] Last Admin: 11/24/21 09:42 Dose: Not Given Home Medications Medication Instructions Recorded Confirmed Last Taken Type amlodipine 5 mg tablet 1 tab PO DAILY 11/23/21 11/23/21 Unknown History atenolol 50 mg tablet 1 tab PO DAILY 11/23/21 11/23/21 Unknown History atorvastatin 10 mg tablet 1 tab PO BEDTIME 11/23/21 11/23/21 Unknown History benztropine 1 mg tablet 1 tab PO BID 11/23/21 11/23/21 Unknown History bethanechol chloride 50 mg tablet 1 tab PO BID 11/23/21 11/23/21 Unknown History buspirone 5 mg tablet 1 tab PO DAILY@0800,1700 11/23/21 11/23/21 Unknown History clozapine 100 mg tablet 3 tab PO BEDTIME 11/23/21 11/23/21 Unknown History clozapine 25 mg tablet 2 tab PO BEDTIME 11/23/21 11/23/21 Unknown History clozapine 50 mg tablet 1 tab PO DAILY 11/23/21 11/23/21 Unknown History divalproex 250 mg tablet,delayed 1 tab PO BEDTIME 11/23/21 11/23/21 Unknown History release (Depakote) divalproex 500 mg tablet,delayed 1 tab PO BEDTIME 11/23/21 11/23/21 Unknown History release (Depakote) mirabegron 25 mg tablet,extended 25 mg PO DAILY 11/23/21 11/23/21 Unknown History release 24 hr (Myrbetriq) polyethylene glycol 3350 17 gram 17 g PO DAILY PRN Constipation 11/23/21 11/23/21 Unknown History oral powder packet tiotropium bromide 18 mcg capsule 1 cap inhalation DAILY 11/23/21 11/23/21 Unknown History with inhalation device (Spiriva with HandiHaler) Physical Exam Vital Signs: Vital Signs: Last Vital Signs Temp 97.4 F 11/24/21 07:56 Pulse 85 11/24/21 07:56 Resp 20 11/24/21 07:56 BP 141/84 H 11/24/21 07:56 Pulse Ox 94 11/24/21 07:56 O2 Del Method 11/24/21 07:56 O2 Flow Rate 1 11/23/21 16:00 BMI result Body Mass Index 42.0 Const: General: comfortable and no acute distress Orientation/consciousness: patient oriented x3 HEENT: Other: Unremarkable Head: Yes normal to inspection Neck: Neck: Yes normal visual inspection Chest: Chest palpation & inspection: normal inspection of the chest Resp: Auscultation: clear to auscultation bilaterally Cardio: Palpation: normal PMI Heart sounds: S1 normal heart sound present, S2 normal heart sound present, no gallops, no murmurs and no rubs GI: Palpation (GI): Soft to palpation Back/Spine/Pelvis: Other: unremarkable Skin: General skin exam: no rashes or lesions noted Neuro: General: patient oriented x3 Speech: Abnormal speech present Extrem: General: Yes normal to inspection Psych: Mental Status: mental status grossly normal Objective Labs and Meds Result diagrams: 11/23/21 05:12 11/23/21 05:12 ECG Interpretation: EKG with atrial fibrillation with rapid rate at 119/Min. Voltage criteria for LVH. Nonspecific ST-T changes. Currently in sinus rhythm on telemetry. Assessment and Plan (1) Atrial fibrillation with rapid ventricular response: Status: Acute (2) Polysubstance abuse: Status: Acute Plan Echocardiogram of difficult quality but LVEF is suspected to be more than 50%. No obvious valvular issues based on limited visualization. It seems he had atrial fibrillation during acute presentation but then back to sinus rhythm. In sinus rhythm at this time. Urine tox screen positive for fentanyl and opiates. In the past, he was also positive for cocaine. High sensitivity troponin within normal limits. Overall, rhythm issue probably from the acute overdose itself. Based on the substance abuse history, we can probably use diltiazem as opposed to atenolol. Atenolol listed as a home drug but not sure how compliant he is. Difficult to assess. Hence switch the atenolol, amlodipine to rather diltiazem. With regard to anticoagulation, due to isolated episode in the setting of overdose as well as substance abuse history, poor compliance, will hold off. Plan discussed with Dr. Doty. Procedures Date of Service Date of Service: 11/24/21
--- NOTE | 2021-11-24 14:42 | HO.PM.IMPN ---
Subjective Subjective Date of Service: 11/24/21 Interval History: the patient was seen and evaluated this morning Laying in bed, feels comfortable Slow in answering questions, mildly confused Denies any fever, chills or shortness of breath No reported other overnight events. Systemic review: No fever, chills but reports generalized weakness No chest pain, palpitation No shortness of breath or coughing No abdominal pain, nausea or vomiting No urinary symptoms No any rash or wounds Physical Exam Vital Signs: Vital Signs: Last Vital Signs Temp 97.4 F 11/24/21 12:03 Pulse 86 11/24/21 12:03 Resp 16 11/24/21 12:03 BP 116/78 11/24/21 12:03 Pulse Ox 95 11/24/21 12:03 O2 Del Method 11/24/21 12:03 O2 Flow Rate 1 11/23/21 16:00 BMI result Body Mass Index 42.0 Const: Other: Constitutional : Alert, interactive, not in distress,difficult to understand with heavy tongue Neck : Normal inspection, Supple Cardiovascular : RRR, no JVP, no lower extremity edema Respiratory : fair bilateral air entry, no crackles, wheezes or rhonchi Gastrointestinal: soft, lax, Normal bowel sounds, Non tender Skin : Warm, Dry Neurological : Alert & oriented to self but not to place, No focal deficit , Objective Data Active Medications Atenolol (Atenolol 50 Mg Tablet) 50 mg PO DAILY [facility]; Protocol Last Admin: 11/24/21 09:38 Dose: 50 mg Documented By: DANICA-ASHLEY Atorvastatin Calcium (Atorvastatin Calcium 10 Mg Tablet) 10 mg PO BEDTIME [facility] Benztropine Mesylate (Benztropine Mesylate 1 Mg Tablet) 1 mg PO BID [facility] Last Admin: 11/24/21 09:38 Dose: 1 mg Documented By: DANICA-ASHLEY Buspirone HCl (Buspirone Hcl 5 Mg Tablet) 5 mg PO DAILY@0800,1700 [facility] Clozapine (Clozapine 100 Mg Tablet) 300 mg PO BEDTIME [facility] Clozapine (Clozapine 25 Mg Tablet) 50 mg PO BEDTIME [facility] Clozapine (Clozapine 25 Mg Tablet) 50 mg PO DAILY [facility] Last Admin: 11/24/21 09:38 Dose: 50 mg Documented By: DANICA-ASHLEY Divalproex Sodium (Divalproex Sodium 250 Mg Tablet.) 250 mg PO BEDTIME [facility] Last Admin: 11/24/21 09:38 Dose: 250 mg Documented By: CEM Divalproex Sodium (Divalproex Sodium 500 Mg Tablet.) 500 mg PO BEDTIME [facility] Last Admin: 11/24/21 09:38 Dose: 500 mg Documented By: CEM Enoxaparin Sodium (Enoxaparin Sodium 40 Mg/0.4 Ml Syringe) 40 mg SUBCUT Q24H [facility] Last Admin: 11/24/21 05:22 Dose: 40 mg Documented By: YESSICA Mirabegron (Mirabegron 25 Mg Tab.Er.24h) 25 mg PO DAILY [facility] Last Admin: 11/24/21 09:38 Dose: 25 mg Documented By: CEM Non-Formulary Medication (Bethanechol Chloride) 1 tab PO BID [facility] Polyethylene Glycol (Polyethylene Glycol 3350 17 Gm Powd.Pack) 17 gm PO DAILY PRN PRN Reason: Constipation Tiotropium [place] (Tiotropium [place] 18 Mcg Cap.W.Dev) 1 puff INHALE DAILY [facility] Last Admin: 11/24/21 09:42 Dose: Not Given Documented By: CEM Non-Admin Reason: Med Not Available Labs CBC & Chem 7: 11/23/21 05:12 11/23/21 05:12 Microbiology Microbiology Results: Microbiology 11/22/21 22:02 Blood Culture - Preliminary Blood - Venous No growth after 24 hours. 11/22/21 22:02 Blood Culture - Preliminary Blood - Venous No growth after 24 hours. Assessment and Plan (1) Atrial fibrillation with rapid ventricular response: Status: Acute (2) Encephalopathy acute: Status: Acute (3) Polysubstance abuse: Status: Acute (4) Opiate overdose: Status: Acute Plan A?66-year-old patient with a past medical history of chronic low back pain, neurogenic bladder, prostate nodule, hypertension, hyperlipidemia, asthma, peripheral neuropathy, constipation, admitted to ICU after found unresponsive in bed his house by a visiting nurse. Toxic metabolic encephalopathy , resolved Secondary to opioid overdose Received Narcan with complete recovery Addiction team to follow Past bedside swallowing test, to start diet Hypertension Continue atenolol and amlodipine New onset atrial fibrillation with RVR Converted back to sinus rhythm Echo showing no abnormality Evaluated by Cardiology, changed to Cardizem and hold on any blood thinners for the time being next [place] to follow with Cardiology as outpatient Enlarged thyroid gland Incidental finding on the images To follow-up with PCP as outpatient Left adrenal adenoma Incidental finding on CT scan To be followed as outpatient Psychiatric illness continue clozapine, [place] own and Depakote Urine retention, chronic continue bethanechol DVT PPX Lovenox The patient will need overnight hospital stay for safe discharge plan and placement to prevent possible decompensation. Quality Stroke Does the patient have a stroke diagnosis?: No VTE Prior VTE?: No VTE Risk Level:: Medical - low VTE Device Contraindication: N/A - Device Ordered VTE Drug Contraindication: Treatment Not Indicated
--- NOTE | 2021-11-24 15:17 | P.PNADD_ITS ---
Subjective Subjective Date of Service: 11/24/21 Reason For Visit: unressponsive Interim History: Addiction consult requested for patient who presented to ED following opioid overdose Seen on C this morning with RSRN, patient awake, but unable to answer any questions. Repeating what multiple times Speech somewhat garbled. Review of Systems Review of Systems: deffered Mental Status Exam Mental Status Exam Patient Appearance: Appropriate Level of Consciousness: Awake Patient Cognition Impaired: Yes Diagnostics Vital Signs (24Hr): Vital Signs - 24 hr 11/23/21 16:00 11/23/21 18:22 11/23/21 19:55 Temperature 98.1 F 98.8 F Pulse Rate 89 94 Respiratory Rate 15 17 Blood Pressure 144/93 H 146/92 H Pulse Oximetry 96 98 96 Oxygen Delivery Method Nasal Cannula Room Air Room Air Oxygen Flow Rate 1 11/23/21 23:51 11/24/21 04:00 11/24/21 07:56 Temperature 97.1 F 97.4 F Pulse Rate 92 83 85 Respiratory Rate 18 20 Blood Pressure 135/86 141/84 H Pulse Oximetry 98 94 Oxygen Delivery Method Room Air Room Air Room Air Oxygen Flow Rate 11/24/21 11:41 11/24/21 12:03 Temperature 97.4 F Pulse Rate 85 86 Respiratory Rate 16 Blood Pressure 141/84 H 116/78 Pulse Oximetry 94 95 Oxygen Delivery Method Room Air Oxygen Flow Rate BMI result Body Mass Index 42.0 Labs Results: 11/23/21 05:12 11/23/21 05:12 Labs: Laboratory Results - last 48 hr 11/22/21 11/22/21 11/22/21 19:07 19:07 19:07 WBC 13.1 H RBC 5.49 Hgb 13.9 L Hct 42.8 MCV 78.0 L MCH 25.3 L MCHC 32.5 RDW 15.5 Plt Count 193 MPV 10.7 Immature Gran % (Auto) 0.5 H Neut % (Auto) 50.4 Lymph % (Auto) 41.1 H [place] % (Auto) 6.1 Eos % (Auto) 1.5 Baso % (Auto) 0.4 Lymph # (Auto) 5.4 H [place] # (Auto) 0.8 Eos # (Auto) 0.2 Baso # (Auto) 0.1 Abs Immat Gran (auto) 0.06 H Absolute Neuts (auto) 6.6 Absolute Nucleated RBC 0.000 Nucleated RBC % (auto) 0.0 Smear Tech's Comments VERIFIED O2 Saturation ABG pH at Pt Temp ABG pCO2 at Pt Temp ABG pO2 at Pt Temp ABG HCO3 ABG Base Excess (Actual) Sodium 140 Potassium 4.2 Chloride 104 Carbon Dioxide 24 Anion Gap 16 BUN 14 Creatinine 1.13 Estim Creat Clear Calc 78.6 Estimated GFR > 60 Random Glucose 141 H Fasting Glucose Calcium 8.6 D Phosphorus 5.8 H Magnesium 2.2 Total Bilirubin 0.6 AST 45 H D ALT 64 H Alkaline Phosphatase 133 H Ammonia Troponin I High Sens B-Natriuretic Peptide Total Protein 7.1 Albumin 3.8 TSH 0.96 Free T4 0.83 Total T3 Cancelled Urine Opiates Screen Urine Fentanyl Screen Ur Barbiturates Screen Ur Phencyclidine Scrn Ur Amphetamines Screen U Benzodiazepines Scrn Urine Cocaine Screen U Marijuana (THC) Screen Ethyl Alcohol < 10 COVID-19 (MARCELA) COVID-19 [employer] 11/22/21 11/22/21 11/22/21 22:02 22:02 22:02 WBC RBC Hgb Hct MCV MCH MCHC RDW Plt Count MPV Immature Gran % (Auto) Neut % (Auto) Lymph % (Auto) [place] % (Auto) Eos % (Auto) Baso % (Auto) Lymph # (Auto) [place] # (Auto) Eos # (Auto) Baso # (Auto) Abs Immat Gran (auto) Absolute Neuts (auto) Absolute Nucleated RBC Nucleated RBC % (auto) Smear Tech's Comments O2 Saturation ABG pH at Pt Temp ABG pCO2 at Pt Temp ABG pO2 at Pt Temp ABG HCO3 ABG Base Excess (Actual) Sodium Potassium Chloride Carbon Dioxide Anion Gap BUN Creatinine Estim Creat Clear Calc Estimated GFR Random Glucose Fasting Glucose Calcium Phosphorus Magnesium Total Bilirubin AST ALT Alkaline Phosphatase Ammonia 27 Troponin I High Sens 9.5 D B-Natriuretic Peptide 17 Total Protein Albumin TSH Free T4 Total T3 Urine Opiates Screen POSITIVE H Urine Fentanyl Screen POSITIVE H Ur Barbiturates Screen Not Detected Ur Phencyclidine Scrn Not Detected Ur Amphetamines Screen Not Detected U Benzodiazepines Scrn Not Detected Urine Cocaine Screen Not Detected U Marijuana (THC) Screen Not Detected Ethyl Alcohol COVID-19 (MARCELA) COVID-19 [employer] 11/22/21 11/22/21 11/23/21 22:04 22:23 05:12 WBC 12.1 H RBC 5.71 Hgb 14.1 Hct 44.0 MCV 77.1 L MCH 24.7 L MCHC 32.0 RDW 15.3 Plt Count 191 MPV 10.8 Immature Gran % (Auto) 0.5 H Neut % (Auto) 77.2 H Lymph % (Auto) 16.1 L [place] % (Auto) 5.9 Eos % (Auto) 0.2 Baso % (Auto) 0.1 Lymph # (Auto) 2.0 [place] # (Auto) 0.7 Eos # (Auto) 0.0 Baso # (Auto) 0.0 Abs Immat Gran (auto) 0.06 H Absolute Neuts (auto) 9.4 H Absolute Nucleated RBC 0.000 Nucleated RBC % (auto) 0.0 Smear Tech's Comments O2 Saturation 99.0 ABG pH at Pt Temp 7.39 ABG pCO2 at Pt Temp 38 ABG pO2 at Pt Temp 101 ABG HCO3 23 ABG Base Excess (Actual) -0.8 Sodium Potassium Chloride Carbon Dioxide Anion Gap BUN Creatinine Estim Creat Clear Calc Estimated GFR Random Glucose Fasting Glucose Calcium Phosphorus Magnesium Total Bilirubin AST ALT Alkaline Phosphatase Ammonia Troponin I High Sens B-Natriuretic Peptide Total Protein Albumin TSH Free T4 Total T3 Urine Opiates Screen Urine Fentanyl Screen Ur Barbiturates Screen Ur Phencyclidine Scrn Ur Amphetamines Screen U Benzodiazepines Scrn Urine Cocaine Screen U Marijuana (THC) Screen Ethyl Alcohol COVID-19 (MARCELA) Negative COVID-19 Clin Com See Note 11/23/21 11/23/21 05:12 19:07 WBC RBC Hgb Hct MCV MCH MCHC RDW Plt Count MPV Immature Gran % (Auto) Neut % (Auto) Lymph % (Auto) [place] % (Auto) Eos % (Auto) Baso % (Auto) Lymph # (Auto) [place] # (Auto) Eos # (Auto) Baso # (Auto) Abs Immat Gran (auto) Absolute Neuts (auto) Absolute Nucleated RBC Nucleated RBC % (auto) Smear Tech's Comments O2 Saturation ABG pH at Pt Temp ABG pCO2 at Pt Temp ABG pO2 at Pt Temp ABG HCO3 ABG Base Excess (Actual) Sodium 140 Potassium 4.4 Chloride 102 Carbon Dioxide 23 Anion Gap 19 BUN 14 Creatinine 1.09 Estim Creat Clear Calc 81.0 Estimated GFR > 60 Random Glucose Fasting Glucose 127 H Calcium 9.3 D Phosphorus Magnesium Total Bilirubin AST ALT Alkaline Phosphatase Ammonia Troponin I High Sens Cancelled B-Natriuretic Peptide Total Protein Albumin TSH Free T4 Total T3 Urine Opiates Screen Urine Fentanyl Screen Ur Barbiturates Screen Ur Phencyclidine Scrn Ur Amphetamines Screen U Benzodiazepines Scrn Urine Cocaine Screen U Marijuana (THC) Screen Ethyl Alcohol COVID-19 (MARCELA) COVID-19 Clin Com Imaging Radiology Impressions: ITS Impressions Abdomen/Pelvis CT 11/22/21 23:30 IMPRESSION: 1. No worrisome finding is seen 2. Incidental note is thyromegaly, benign hepatic cyst, status post cholecystectomy. Fatty pancreas, benign left adrenal adenoma, BPH with a Rogers catheter in the bladder Fleischner guidelines were followed. Cervical Spine CT 11/22/21 23:30 IMPRESSION: 1. No acute intracranial finding. 2. No fracture or malalignment of the cervical spine. Mild degenerative change. 3. Enlarged thyroid gland. Correlate with thyroid function. Consider ultrasound evaluation. Chest CT 11/22/21 23:30 IMPRESSION: 1. No worrisome finding is seen 2. Incidental note is thyromegaly, benign hepatic cyst, status post cholecystectomy. Fatty pancreas, benign left adrenal adenoma, BPH with a Rogers catheter in the bladder Fleischner guidelines were followed. Head CT 11/22/21 23:30 IMPRESSION: 1. No acute intracranial finding. 2. No fracture or malalignment of the cervical spine. Mild degenerative change. 3. Enlarged thyroid gland. Correlate with thyroid function. Consider ultrasound evaluation. Medications Medications Current Medications Atenolol (Atenolol 50 Mg Tablet) 50 mg PO DAILY [facility]; Protocol Last Admin: 11/24/21 09:38 Dose: 50 mg Atorvastatin Calcium (Atorvastatin Calcium 10 Mg Tablet) 10 mg PO BEDTIME [facility] Benztropine Mesylate (Benztropine Mesylate 1 Mg Tablet) 1 mg PO BID [facility] Last Admin: 11/24/21 09:38 Dose: 1 mg Buspirone HCl (Buspirone Hcl 5 Mg Tablet) 5 mg PO DAILY@0800,1700 [facility] Clozapine (Clozapine 100 Mg Tablet) 300 mg PO BEDTIME [facility] Clozapine (Clozapine 25 Mg Tablet) 50 mg PO BEDTIME [facility] Clozapine (Clozapine 25 Mg Tablet) 50 mg PO DAILY [facility] Last Admin: 11/24/21 09:38 Dose: 50 mg Divalproex Sodium (Divalproex Sodium 250 Mg Tablet.) 250 mg PO BEDTIME [facility] Last Admin: 11/24/21 09:38 Dose: 250 mg Divalproex Sodium (Divalproex Sodium 500 Mg Tablet.) 500 mg PO BEDTIME [facility] Last Admin: 11/24/21 09:38 Dose: 500 mg Enoxaparin Sodium (Enoxaparin Sodium 40 Mg/0.4 Ml Syringe) 40 mg SUBCUT Q24H [facility] Last Admin: 11/24/21 05:22 Dose: 40 mg Mirabegron (Mirabegron 25 Mg Tab.Er.24h) 25 mg PO DAILY [facility] Last Admin: 11/24/21 09:38 Dose: 25 mg Non-Formulary Medication (Bethanechol Chloride) 1 tab PO BID [facility] Polyethylene Glycol (Polyethylene Glycol 3350 17 Gm Powd.Pack) 17 gm PO DAILY PRN PRN Reason: Constipation Tiotropium [place] (Tiotropium [place] 18 Mcg Cap.W.Dev) 1 puff INHALE DAILY [facility] Last Admin: 11/24/21 09:42 Dose: Not Given Allergies Allergies Allergy/AdvReac Type Severity Reaction Status Date / Time No Known Allergies Allergy Verified 08/23/21 13:07 Assessment & Plan Assessment & Plan (1) Opiate overdose: Qualifiers: Encounter type: initial encounter Injury intent: accidental or unintentional Qualified Code(s): T40.601A - Poisoning by unspecified narcotics, accidental (unintentional), initial encounter Status: Acute Code(s): T40.601A - Poisoning by unspecified narcotics, accidental (unintentional), initial encounter Assessment and Plan: * overdose resolved * unclear what baseline is as patient unable to participate in interview today * should be discharged with take home narcan Plan I spent ___15___ minutes with the patient and/or on the patient floor today, greater than?50% of which was spent counseling/coordinating care.
--- NOTE | 2021-11-24 16:49 | PC.NURSE ---
No acute complications this shift. safety and fall precautions in place. pt taking meds while with water. call navarro within reach. urinal given to pt d/t pt voiding on the floor and removing [place] cath despite being reoriented.
[2021-11-24] MEDS: busPIRone HCl 5 MG TABLET PO (17:03)
[2021-11-25] VITALS (7 sets, daily range): BP systolic 106–135; BP diastolic 57–88; PULSE 80–87; RESP 16–20; TEMP 35.7–36.7; O2SAT 93–98; BMI 42.6
[2021-11-25] MEDS: Atorvastatin Calcium 10 MG TABLET PO ×2 (00:16→20:07)
[2021-11-25] MEDS: cloZAPine 100 MG TABLET 300 MG PO ×2 (00:16→20:06)
[2021-11-25] MEDS: Divalproex Sodium 500 MG TABLET.DR PO ×2 (00:16→20:06)
[2021-11-25] MEDS: Divalproex Sodium 250 MG TABLET.DR PO ×2 (00:16→20:06)
[2021-11-25] MEDS: cloZAPine 25 MG TABLET 50 MG PO ×3 (00:16→20:07)
[2021-11-25] MEDS: Benztropine Mesylate 1 MG TABLET PO ×3 (00:17→20:07)
[2021-11-25 04:48] LABS: Triiodothyronine T3 Free 2.1 pg/mL (2.3-4.2)
[2021-11-25 07:31] LABS: Hematocrit 41.3 % (42.0-52.0); Hemoglobin 13.4 g/dl (14.0-18.0); Mean Corpuscular HGB Conc 32.4 g/dl (31.0-36.0); Mean Corpuscular Hemoglobin 25.6 pg (27.0-33.0); Mean Corpuscular Volume 78.8 fL (80.0-98.0); Mean Platelet Volume 11.7 fL (9.4-12.4); Platelet Count 167 X10*3/uL (160-400); Red Blood Count 5.24 X10*6/uL (4.60-5.80); Red Cell Distribution Width 15.6 % (11.0-16.0); White Blood Count 9.2 X10*3/uL (4.8-10.8)
[2021-11-25 08:02] LABS: Anion Gap 17 (12-20); Blood Urea Nitrogen 12 mg/dL (9-16); Carbon Dioxide 27 mmol/L (22-29); Chloride 99 mmol/L (96-108); Creatinine Clr Calc Pharmacy 78.1; Estimated Glomerular Filt Rate > 60; Glucose Random 99 mg/dL (60-115); Sodium 139 mmol/L (135-145)
[2021-11-25] MEDS: atenoloL 50 MG TABLET PO (09:16)
[2021-11-25] MEDS: Mirabegron 25 MG TAB.ER.24H PO (09:17)
[2021-11-25] MEDS: busPIRone HCl 5 MG TABLET PO ×2 (09:17→17:39)
--- NOTE | 2021-11-25 12:21 | P.PNIM_ITS ---
Subjective Subjective Date of Service: 11/25/21 Interval History: the patient was seen and evaluated this morning Sitting in his chair, having breakfast Slow in answering questions, mildly confused but more alert and interactive Denies any fever, chills or shortness of breath No reported other overnight events. Systemic review: No fever, chills but reports generalized weakness No chest pain, palpitation No shortness of breath or coughing No abdominal pain, nausea or vomiting No urinary symptoms No any rash or wounds Physical Exam Vital Signs: Vital Signs: Last Vital Signs Temp 97.0 F 11/25/21 11:18 Pulse 85 11/25/21 11:18 Resp 20 11/25/21 11:18 BP 130/88 11/25/21 11:18 Pulse Ox 97 11/25/21 11:18 O2 Del Method 11/25/21 11:18 O2 Flow Rate 1 11/23/21 16:00 BMI result Body Mass Index 42.6 Const: Other: Constitutional : Alert, interactive, not in distress,difficult to understand with heavy tongue Neck : Normal inspection, Supple Cardiovascular : RRR, no JVP, no lower extremity edema Respiratory : fair bilateral air entry, no crackles, wheezes or rhonchi Gastrointestinal: soft, lax, Normal bowel sounds, Non tender Skin : Warm, Dry Neurological : Alert & oriented to self but not to place, No focal deficit , Objective Data Active Medications Atenolol (Atenolol 50 Mg Tablet) 50 mg PO DAILY [facility]; Protocol Last Admin: 11/25/21 09:16 Dose: 50 mg Documented By: MIO Atorvastatin Calcium (Atorvastatin Calcium 10 Mg Tablet) 10 mg PO BEDTIME [facility] Last Admin: 11/25/21 00:16 Dose: 10 mg Documented By: HEATHER Benztropine Mesylate (Benztropine Mesylate 1 Mg Tablet) 1 mg PO BID [facility] Last Admin: 11/25/21 09:17 Dose: 1 mg Documented By: MIO Buspirone HCl (Buspirone Hcl 5 Mg Tablet) 5 mg PO DAILY@0800,1700 [facility] Last Admin: 11/25/21 09:17 Dose: 5 mg Documented By: MIO Clozapine (Clozapine 100 Mg Tablet) 300 mg PO BEDTIME [facility] Last Admin: 11/25/21 00:16 Dose: 300 mg Documented By: HEATHER Clozapine (Clozapine 25 Mg Tablet) 50 mg PO BEDTIME [facility] Last Admin: 11/25/21 00:16 Dose: 50 mg Documented By: HEATHER Clozapine (Clozapine 25 Mg Tablet) 50 mg PO DAILY [facility] Last Admin: 11/25/21 09:17 Dose: 50 mg Documented By: MIO Divalproex Sodium (Divalproex Sodium 250 Mg Tablet.) 250 mg PO BEDTIME [facility] Last Admin: 11/25/21 00:16 Dose: 250 mg Documented By: HEATHER Divalproex Sodium (Divalproex Sodium 500 Mg Tablet.) 500 mg PO BEDTIME [facility] Last Admin: 11/25/21 00:16 Dose: 500 mg Documented By: HEATHER Enoxaparin Sodium (Enoxaparin Sodium 40 Mg/0.4 Ml Syringe) 40 mg SUBCUT Q24H [facility] Last Admin: 11/25/21 06:44 Dose: Not Given Documented By: HEATHER Non-Admin Reason: Patient Refused Mirabegron (Mirabegron 25 Mg Tab.Er.24h) 25 mg PO DAILY [facility] Last Admin: 11/25/21 09:17 Dose: 25 mg Documented By: MIO Non-Formulary Medication (Bethanechol Chloride) 1 tab PO BID [facility] Polyethylene Glycol (Polyethylene Glycol 3350 17 Gm Powd.Pack) 17 gm PO DAILY PRN PRN Reason: Constipation Tiotropium [place] (Tiotropium [place] 18 Mcg Cap.W.Dev) 1 puff INHALE DAILY [facility] Last Admin: 11/25/21 07:44 Dose: Not Given Documented By: GABY Non-Admin Reason: Med Not Available Labs CBC & Chem 7: 11/25/21 06:32 11/25/21 06:32 Labs: Laboratory Results - last 24 hr 11/22/21 11/25/21 11/25/21 19:07 06:32 06:32 MCV 78.8 L MCH 25.6 L MCHC 32.4 RDW 15.6 Plt Count 167 MPV 11.7 Absolute Nucleated RBC 0.000 Nucleated RBC % (auto) 0.0 Anion Gap 17 Estim Creat Clear Calc 78.1 Estimated GFR > 60 Random Glucose 99 Calcium 9.0 Free T3 2.1 L Microbiology Microbiology Results: Microbiology 11/22/21 22:02 Blood Culture - Preliminary Blood - Venous No growth after 48 hours. 11/22/21 22:02 Blood Culture - Preliminary Blood - Venous No growth after 48 hours. Assessment and Plan (1) Atrial fibrillation with rapid ventricular response: Status: Acute (2) Encephalopathy acute: Status: Acute (3) Altered mental status: Status: Acute (4) Opiate overdose: Status: Acute Plan A?66-year-old patient with a past medical history of chronic low back pain, neurogenic bladder, prostate nodule, hypertension, hyperlipidemia, asthma, peripheral neuropathy, constipation, admitted to ICU after found unresponsive in bed his house by a visiting nurse. Toxic metabolic encephalopathy , resolved Secondary to opioid overdose Received Narcan with complete recovery Improving Addiction team input appreciated, discharged with take-home Narcan Past bedside swallowing test, to start diet Hypertension Continue atenolol and amlodipine New onset atrial fibrillation with RVR Converted back to sinus rhythm Echo showing no abnormality Evaluated by Cardiology, changed to Cardizem and hold on any blood thinners for the time being next [place] to follow with Cardiology as outpatient Enlarged thyroid gland Incidental finding on the images To follow-up with PCP as outpatient Left adrenal adenoma Incidental finding on CT scan To be followed as outpatient Psychiatric illness continue clozapine, [place] own and Depakote Urine retention, chronic continue bethanechol DVT PPX Lovenox The patient will need overnight hospital stay for safe discharge plan and placement to prevent possible decompensation Quality Stroke Does the patient have a stroke diagnosis?: No VTE Prior VTE?: No VTE Risk Level:: Medical - low VTE Device Contraindication: N/A - Device Ordered VTE Drug Contraindication: Treatment Not Indicated
[2021-11-25] MEDS: Bethanechol Chloride 25 MG TABLET 50 MG PO (20:06)
[2021-11-26 03:37] VITALS: BP 122/79; PULSE 80; RESP 20; TEMP 35.9; O2SAT 98
[2021-11-26 05:16] VITALS: BMI 41.8
[2021-11-26 07:20] VITALS: BP 129/84; PULSE 80; RESP 20; TEMP 36.5; O2SAT 97
[2021-11-26] MEDS: cloZAPine 25 MG TABLET 50 MG PO ×2 (09:14→19:43)
[2021-11-26] MEDS: atenoloL 50 MG TABLET PO (09:14)
[2021-11-26] MEDS: Bethanechol Chloride 25 MG TABLET 50 MG PO ×2 (09:14→19:45)
[2021-11-26] MEDS: Mirabegron 25 MG TAB.ER.24H PO (09:14)
[2021-11-26] MEDS: Benztropine Mesylate 1 MG TABLET PO ×2 (09:14→19:44)
[2021-11-26] MEDS: busPIRone HCl 5 MG TABLET PO ×2 (09:14→16:13)
[2021-11-26 11:38] VITALS: BP 108/68; PULSE 79; RESP 20; TEMP 36.7; O2SAT 96
--- NOTE | 2021-11-26 13:43 | HO.PM.IMPN ---
Subjective Subjective Date of Service: 11/26/21 Interval History: the patient was seen and evaluated this morning Slow in answering questions, mildly confused but more alert and interactive Overall Denies any fever, chills or shortness of breath No reported other overnight events. Systemic review: No fever, chills but reports generalized weakness No chest pain, palpitation No shortness of breath or coughing No abdominal pain, nausea or vomiting No urinary symptoms No any rash or wounds Physical Exam Vital Signs: Vital Signs: Last Vital Signs Temp 98.0 F 11/26/21 11:38 Pulse 79 11/26/21 11:38 Resp 20 11/26/21 11:38 BP 108/68 11/26/21 11:38 Pulse Ox 96 11/26/21 11:38 O2 Del Method 11/26/21 11:38 O2 Flow Rate 1 11/23/21 16:00 BMI result Body Mass Index 41.8 Const: Other: Constitutional : Alert, interactive, not in distress,difficult to understand with heavy tongue Neck : Normal inspection, Supple Cardiovascular : RRR, no JVP, no lower extremity edema Respiratory : fair bilateral air entry, no crackles, wheezes or rhonchi Gastrointestinal: soft, lax, Normal bowel sounds, Non tender Skin : Warm, Dry Neurological : Alert & oriented to self but not to place, No focal deficit , Objective Data Active Medications Atenolol (Atenolol 50 Mg Tablet) 50 mg PO DAILY [facility]LY [facility], [facility]; Protocol Last Admin: 11/26/21 09:14 Dose: 50 mg Documented By: MIO Atorvastatin Calcium (Atorvastatin Calcium 10 Mg Tablet) 10 mg PO BEDTIME [facility] Last Admin: 11/25/21 20:07 Dose: 10 mg Documented By: HEATHER Benztropine Mesylate (Benztropine Mesylate 1 Mg Tablet) 1 mg PO BID [facility] Last Admin: 11/26/21 09:14 Dose: 1 mg Documented By: MIO Bethanechol Chloride (Bethanechol Chloride 25 Mg Tablet) 50 mg PO BID [facility] Last Admin: 11/26/21 09:14 Dose: 50 mg Documented By: MIO Buspirone HCl (Buspirone Hcl 5 Mg Tablet) 5 mg PO DAILY@0800,1700 [facility] Last Admin: 11/26/21 09:14 Dose: 5 mg Documented By: IMO Clozapine (Clozapine 100 Mg Tablet) 300 mg PO BEDTIME [facility] Last Admin: 11/25/21 20:06 Dose: 300 mg Documented By: HEATHER Clozapine (Clozapine 25 Mg Tablet) 50 mg PO BEDTIME [facility] Last Admin: 11/25/21 20:07 Dose: 50 mg Documented By: HEATHER Clozapine (Clozapine 25 Mg Tablet) 50 mg PO DAILY [facility] Last Admin: 11/26/21 09:14 Dose: 50 mg Documented By: MIO Divalproex Sodium (Divalproex Sodium 250 Mg Tablet.) 250 mg PO BEDTIME [facility] Last Admin: 11/25/21 20:06 Dose: 250 mg Documented By: HEATHER Divalproex Sodium (Divalproex Sodium 500 Mg Tablet.) 500 mg PO BEDTIME [facility] Last Admin: 11/25/21 20:06 Dose: 500 mg Documented By: HEATHER Enoxaparin Sodium (Enoxaparin Sodium 40 Mg/0.4 Ml Syringe) 40 mg SUBCUT Q24H [facility] Last Admin: 11/26/21 06:10 Dose: Not Given Documented By: HEATHER Non-Admin Reason: Patient Refused Mirabegron (Mirabegron 25 Mg Tab.Er.24h) 25 mg PO DAILY [facility] Last Admin: 11/26/21 09:14 Dose: 25 mg Documented By: MIO Polyethylene Glycol (Polyethylene Glycol 3350 17 Gm Powd.Pack) 17 gm PO DAILY PRN PRN Reason: Constipation Tiotropium Ellington (Tiotropium Ellington 18 Mcg Cap.W.Dev) 1 puff INHALE DAILY [facility] Last Admin: 11/26/21 07:56 Dose: Not Given Documented By: GABY Non-Admin Reason: Med Not Available Labs CBC & Chem 7: 11/25/21 06:32 11/25/21 06:32 Assessment and Plan (1) Encephalopathy acute: Status: Acute (2) Atrial fibrillation with rapid ventricular response: Status: Acute (3) Polysubstance abuse: Status: Acute (4) Opiate overdose: Status: Acute Plan A?66-year-old patient with a past medical history of chronic low back pain, neurogenic bladder, prostate nodule, hypertension, hyperlipidemia, asthma, peripheral neuropathy, constipation, admitted to ICU after found unresponsive in bed his house by a visiting nurse. Toxic metabolic encephalopathy Secondary to opioid overdose improving but Still confused Received Narcan with complete recovery Addiction team input appreciated, discharged with take-home Narcan Hypertension Continue atenolol and amlodipine New onset atrial fibrillation with RVR Converted back to sinus rhythm Echo showing no abnormality Evaluated by Cardiology, changed to Cardizem and hold on any blood thinners for the time being next Lyme to follow with Cardiology as outpatient Enlarged thyroid gland Incidental finding on the images To follow-up with PCP as outpatient Left adrenal adenoma Incidental finding on CT scan To be followed as outpatient Psychiatric illness continue clozapine, Mouth Of Wilson own and Depakote Urine retention, chronic continue bethanechol DVT PPX Lovenox The patient will need overnight hospital stay for safe discharge plan and placement to prevent possible decompensation Quality Stroke Does the patient have a stroke diagnosis?: No VTE Prior VTE?: No VTE Risk Level:: Medical - low VTE Device Contraindication: N/A - Device Ordered VTE Drug Contraindication: Treatment Not Indicated
[2021-11-26 14:59] VITALS: BP 125/82; PULSE 78; RESP 18; TEMP 36.7; O2SAT 96
[2021-11-26] MEDS: Atorvastatin Calcium 10 MG TABLET PO (19:41)
[2021-11-26] MEDS: Divalproex Sodium 250 MG TABLET.DR PO (19:45)
[2021-11-26] MEDS: Divalproex Sodium 500 MG TABLET.DR PO (19:45)
[2021-11-26] MEDS: cloZAPine 100 MG TABLET 300 MG PO (19:47)
[2021-11-26 20:00] VITALS: BP 137/97; PULSE 85; RESP 18; TEMP 36.1; O2SAT 98
[2021-11-27] MEDS: Enoxaparin Sodium 40 MG/0.4 ML SYRINGE SUBCUT (05:24)
[2021-11-27 06:00] VITALS: BMI 42.4
[2021-11-27 08:00] VITALS: BP 140/93; PULSE 88; RESP 20; TEMP 36.4; O2SAT 96
[2021-11-27] MEDS: Benztropine Mesylate 1 MG TABLET PO (09:17)
[2021-11-27] MEDS: busPIRone HCl 5 MG TABLET PO (09:17)
[2021-11-27] MEDS: atenoloL 50 MG TABLET PO (09:17)
[2021-11-27] MEDS: cloZAPine 25 MG TABLET 50 MG PO (09:17)
[2021-11-27] MEDS: Mirabegron 25 MG TAB.ER.24H PO (09:18)
[2021-11-27] MEDS: Bethanechol Chloride 25 MG TABLET 50 MG PO (09:18)
[2021-11-27 10:05] VITALS: BP 140/93; PULSE 88; O2SAT 96
--- NOTE | 2021-11-27 11:34 | MHC.CM.PN ---
Addendum entered by Gabriela Yang 11/27/21 11:47: IMM delivered Original Note: Plan for pt to return to [facility] in [place]. Resume services with Lynn D[facility]. Call placed by this technical proposal writer to [facility], spoke with Terri and will fax d/c summary when completed by MD. PAC program to provide transportation @1PM.
[2021-11-27 12:00] VITALS: BP 110/73; PULSE 79; RESP 20; TEMP 36.6; O2SAT 96
--- NOTE | 2021-11-27 12:49 | P.DS_ITS ---
DS: Providers Provider Date of Service: 11/27/21 Date of admission: 11/23/21 00:21 Primary care physician: Unknown Physician Consults: 11/23/21 18:17 Addiction Medicine Routine Consulting Provider: Olivia Chu Reason for consultation: overdose requring narcan drip. for eval and rec. 11/24/21 08:34 Consult to Cardiology Routine Consulting Provider: Lex Garrison Reason for consultation: New onset Afib w drug abuse, converted, for establish of care. DS: Diagnosis Discharge Diagnosis (1) Encephalopathy acute: Status: Acute (2) Atrial fibrillation with rapid ventricular response: Status: Acute (3) Polysubstance abuse: Status: Acute (4) Opiate overdose: Status: Acute DS: Summary Hospital Course Hospital Course: Admission note HPI by ICU attending 66-year-old patient with a past medical history of chronic low back pain, neurogenic bladder, prostate nodule, hypertension, hyperlipidemia, asthma, peripheral neuropathy, constipation, presents to us after we found unresponsive in bed his house by a visiting nurse who called 911 and administered intranasal Narcan 4 mg followed by BLS administration of the same medication with minimal response, paramedics arrived to the scene and gave him IV Narcan transfer him to the emergency room as he was still lethargic on presentation to the ER, patient's respiratory rate has gotten as low as 6 and not responding to painful stimuli with pinpoint pupils, repeated doses of Narcan IV and intranasal have been given finally given the significant somnolence the patient was placed on IV Narcan drip.? Intermittently the patient had woken up and had admitted to using oxycodone (1 tablet) however disease doubt it given the significant somnolence. In the emergency room, the patient had a full workup, he was hemodynamically stable with exception respiratory rate which was as low as 6, somewhat tachycardic 110 beats per minute.? White count of 13.1, H&H of 13.9 and 42 respectively, platelet 193.? Electrolytes all within normal limits and normal renal function.? AST 45, ALT 64, ammonia 27, toxicology screen is positive for opioids and fentanyl, ethyl alcohol less than 10, COVID negative. Blood gases completely unremarkable. The CT survey including head, neck, chest, abdomen and pelvis CTs revealed no acute pathology.? Given that the patient is hemodynamically stable, the concern is his respiratory drive and lethargy despite of Narcan administration in a continuous manner. ? Hospital course The patient was admitted to ICU after being found unresponsive with pinpoint eyes for Narcan drip with good response over the course of ICU stay. He was noticed to have new onset atrial fibrillation with RVR at that point. Responded well to the Narcan as his mental status improved back to baseline. Evaluated by addiction team who recommended to discharge home with home Narcan. Seen by Cardiology for the new atrial fibrillation as an echo showed no abnormality. Cardiology recommended to follow-up as outpatient as it was 1 incident only. Noticed to have enlarged thyroid gland on the images. To be followed as outpatient with PCP. CT scan also reported left adrenal adenoma which should be followed as outpatient. Evaluated by Physical therapy who recommended short-term rehab but the patient prefers to go back to work he lives as he have VNA service. We advise you complete abstinence from drugs To keep Narcan at home To follow up with Cardiology as outpatient To follow-up with PCP for evaluation of enlarged thyroid gland and left adrenal gland adenoma Time Spent with Patient Time attestation: Total time spent providing and/or coordinating discharge services: Discharge coordination time: Greater than 30 minutes Quality: Safe Use of Opioids Does Pt have an Active Cancer Diagnosis on the Problem List?: No Quality: Stroke Does the patient have a stroke diagnosis?: No Physical Exam Vital Signs: Vital Signs: Last Vital Signs Temp 97.8 F 11/27/21 12:00 Pulse 79 11/27/21 12:00 Resp 20 11/27/21 12:00 BP 110/73 11/27/21 12:00 Pulse Ox 96 11/27/21 12:00 O2 Del Method 11/27/21 12:00 O2 Flow Rate 1 11/23/21 16:00 BMI result Body Mass Index 42.4 Const: Other: Constitutional : Alert, interactive, not in distress,difficult to understand with heavy tongue Neck : Normal inspection, Supple Cardiovascular : RRR, no JVP, no lower extremity edema Respiratory : fair bilateral air entry, no crackles, wheezes or rhonchi Gastrointestinal: soft, lax, Normal bowel sounds, Non tender Skin : Warm, Dry Neurological : Alert & oriented to self but not to place, No focal deficit , DS: Data Data Completed and Pending Labs on day of discharge: Preliminary micro results at discharge 11/22/21 22:02 Blood Culture - Preliminary Blood - Venous No growth after 48 hours. 11/22/21 22:02 Blood Culture - Preliminary Blood - Venous No growth after [address] scan - abdomen: Radiologist's impression: ITS Impressions Abdomen/Pelvis CT 11/22/21 23:30 IMPRESSION: 1. No worrisome finding is seen 2. Incidental note is thyromegaly, benign hepatic cyst, status post cholecystectomy. Fatty pancreas, benign left adrenal adenoma, BPH with a Rogers catheter in the bladder Fleischner guidelines were followed. Cervical Spine CT 11/22/21 23:30 IMPRESSION: 1. No acute intracranial finding. 2. No fracture or malalignment of the cervical spine. Mild degenerative change. 3. Enlarged thyroid gland. Correlate with thyroid function. Consider ultrasound evaluation. Chest CT 11/22/21 23:30 IMPRESSION: 1. No worrisome finding is seen 2. Incidental note is thyromegaly, benign hepatic cyst, status post cholecystectomy. Fatty pancreas, benign left adrenal adenoma, BPH with a Rogers catheter in the bladder Fleischner guidelines were followed. Head CT 11/22/21 23:30 IMPRESSION: 1. No acute intracranial finding. 2. No fracture or malalignment of the cervical spine. Mild degenerative change. 3. Enlarged thyroid gland. Correlate with thyroid function. Consider ultrasound evaluation. Discharge Plan Discharge Patient Disposition: Home Health Service Discharge Diagnosis: Opiate overdose Referrals: [facility] [Outside] - 1 Day (Resumption of service- Please call them if you do not hear from them.) Cristine Arteaga MD [Physical Therapist] - 1 Week (PCP) Discharge Medications: New naloxone [Narcan] 4 mg/actuation spray,non-aerosol 4 mg intranasal Q3M PRN (Reason: opioid overdose) Qty: 2 0RF Rx Instructions: spray 1 dose into ONE nostril; alternate nostrils w each dose until help arrives Continued buspirone 5 mg tablet 1 tab PO DAILY@0800,1700 divalproex [Depakote] 250 mg tablet,delayed release (DR/EC) 1 tab PO BEDTIME atorvastatin 10 mg tablet 1 tab PO BEDTIME clozapine 100 mg tablet 3 tab PO BEDTIME amlodipine 5 mg tablet 1 tab PO DAILY divalproex [Depakote] 500 mg tablet,delayed release (DR/EC) 1 tab PO BEDTIME benztropine 1 mg tablet 1 tab PO BID bethanechol chloride 50 mg tablet 1 tab PO BID clozapine 25 mg tablet 2 tab PO BEDTIME atenolol 50 mg tablet 1 tab PO DAILY clozapine 50 mg tablet 1 tab PO DAILY polyethylene glycol 3350 17 gram Powder In Packet 17 g PO DAILY PRN (Reason: Constipation) Spiriva with HandiHaler 18 mcg Capsule, W/Inhalation Device 1 cap INHALATION DAILY Rx Instructions: puncture 1 cap using device; one dose = 2 inhalations Myrbetriq 25 mg Tablet Extended Release 24 Hr 25 mg PO DAILY Discharge Orders: Discharge Order (Routine); Ordered 11/27/21 Ordered By: Mike Doty Diet: Advance to usual diet Activity on Discharge: As tolerated Stand Alone Forms: Patient Portal Discharge page Care Plan Goals: Read below Health Concerns: Read below Plan of Treatment: Read below Assessment: You were admitted to the hospital after found unresponsive secondary to drug overdose. You were admitted to the ICU unit and improved with using Narcan drip. Addiction team evaluated you and recommended Narcan at time of discharge. Noticed to have irregular heart rhythm called atrial fibrillation which was evaluated by Cardiology who recommended to follow-up as outpatient. We advise you complete abstinence from drugs To keep Narcan at home To follow up with Cardiology as outpatient To follow-up with PCP for evaluation of enlarged thyroid gland and left adrenal gland adenoma
== END 2021-11-27 13:24 | disposition home health service (06) | DRG 917 ==
LOC: HO.ED 11-23 00:39 → HO.ICU 11-23 00:43 → HO.IMC 11-23 19:22
PROVIDERS: Emergency Medicine Emergency Medical Services; Admitting Provider Physician Assistant Medical; Emergency Provider Emergency Medicine; PCP Internal Medicine; Visit Provider Student in an Organized Health Care Education/Training Program
DX: T40.2X1A Poisoning by other opioids, accidental (unintentional), initial encounter (principal); G92.8 Other toxic encephalopathy; M54.9 Dorsalgia, unspecified; I10 Essential (primary) hypertension; D35.02 Benign neoplasm of left adrenal gland; E04.9 Nontoxic goiter, unspecified; G89.29 Other chronic pain; I48.91 Unspecified atrial fibrillation; N31.9 Neuromuscular dysfunction of bladder, unspecified; F19.10 Other psychoactive substance abuse, uncomplicated; F17.210 Nicotine dependence, cigarettes, uncomplicated; Z71.6 Tobacco abuse counseling; Z20.822 Contact with and (suspected) exposure to COVID-19; Z79.899 Other long term (current) drug therapy
CPT/HCPCS: 36415; 70450; 71250; 72125; 74176; 80048; 80053; 80307; 82077; 82140; 82803; 83735; 83880; 84100; 84439; 84443; 84481; 84484; 85025; 85027; 87040; 87635; 93005; 93306; 97116; 97162; 99285; C1758; J1650

== ENCOUNTER → 2022-02-23 09:26 | Outpatient (BNVA) | payer MEDICARE, MEDICAID, SELFPAY | PROVIDERS: PCP Internal Medicine; Visit Provider Urology | DX: N31.9 Neuromuscular dysfunction of bladder, unspecified (principal); R39.12 Poor urinary stream | CPT/HCPCS: 99212 ==

== ENCOUNTER → 2022-09-04 11:34 | Outpatient (BNVA) | payer MEDICARE, MEDICAID, SELFPAY | PROVIDERS: PCP Internal Medicine; Visit Provider Urology | DX: N31.9 Neuromuscular dysfunction of bladder, unspecified (principal); R39.12 Poor urinary stream; M25.559 Pain in unspecified hip; Z79.899 Other long term (current) drug therapy | CPT/HCPCS: 51798; 99212 ==

== ENCOUNTER 2023-03-05 10:28 | Outpatient (AMB) | payer MEDICARE, MEDICAID, SELFPAY ==
--- NOTE | 2023-03-05 10:45 | A.OFFVIS_ITS ---
Intake Intake Visit Reasons: 6M PVR(No Show Ortho Ref) Intake Note: Patient is Present for Follow Up Urology Medication: Bethanechol, Tamsulosin Antibiotic Allergies: None Blood Thinners: None PVR: 0 Allergies No Known Allergies Allergy (Verified 09/04/22 11:37) Medication List - Last Reconciled 03/05/23 by Jose Alberto Mccarty MD amlodipine 1 tab PO DAILY atenolol 1 tab PO DAILY atorvastatin 1 tab PO BEDTIME benztropine 1 tab PO BID bethanechol chloride 50 mg PO BID 90 days buspirone 1 tab PO DAILY@0800,1700 clozapine 1 tab PO DAILY clozapine 3 tabs PO BEDTIME clozapine 2 tabs PO BEDTIME divalproex (Depakote) 1 tab PO BEDTIME divalproex (Depakote) 1 tab PO BEDTIME hydroxyzine pamoate 25 mg PO BID naloxone 4 mg/actuation (Narcan) 4 mg intranasal Q3M PRN polyethylene glycol 3350 17 grams PO DAILY PRN tamsulosin 0.4 mg PO BEDTIME tiotropium bromide (Spiriva with HandiHaler) 1 cap inhalation DAILY trazodone 50 - 150 mg PO BEDTIME PRN HPI HPI Comments History of Present Illness Details Lance THOMSON is a very pleasant male. He is a patient of Dr Blue. 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 Current treatment includes medication, alpha gem and bladder stablizer. Prostate Symptom Score 1/20 , Mild (0-8), Bother 3. Prostate volume 30-50gm. 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 He presents for further evaluation of elevated PSA, - 10/29 PCP with nodular prostate. Laboratory investigations include 10/30 PSA 3.0. Symptoms include incomplete emptying, weak stream, nocturia, x 2, , and are worsening 10/31 , and are stable. Therapeutic plan will be continued surveillance. [facility] Medical History Abnormal CT of liver Back pain Feeling of incomplete bladder emptying H/O urinary frequency Mood swings Neurogenic bladder Nocturia Polysubstance abuse Prostate nodule Urinary retention with incomplete bladder emptying Weak urinary stream Family History Mother Colon cancer Emphysema lung Household Members: Other Housing: Other Housing Other:: boarding house Do you presently have visiting nurse or other home services: Yes Unable to assess alcohol history related to: Refusing to respond Alcohol intake: current Patient Tobacco Use Status: Current everyday Tobacco user Tobacco use type: Cigarette Cigarettes Per Day: 4 Second Hand Smoke Exposure: No Substance Use Type: Crack/Cocaine and Opiates service: No Current occupational status: unemployed and disabled Office Procedures Post Void Residual Post Residual Void Post Void Residual (PVR): 0 13121-[id number] Void Residual by ultrasound Assessment & Plan Assessment & Plan Orders: Orders Prostate Specific Antigen 6 Months N31.9 - Neuromuscular dysfunction of bladder, unspecified AMB Post Void Residual by ultrasound Today N31.9 - Neuromuscular dysfunction of bladder, unspecified Medications: Refilled tamsulosin 0.4 mg PO BEDTIME 90 caps 1RF N31.9 - Neuromuscular dysfunction of bladder, unspecified bethanechol chloride 50 mg PO BID 180 tabs 1RF 90 days N31.9 - Neuromuscular dysfunction of bladder, unspecified Coding Level of Care Code Est Pt Level 3 (74738) CPT Codes Post Residual Void - PVR CPT Code: 24149-Xign Void Residual by ultrasound ([id number])
== END 2023-03-05 11:08 | disposition home or self-care (01) ==
PROVIDERS: Visit Provider Urology
DX: R39.12 Poor urinary stream (principal); N31.9 Neuromuscular dysfunction of bladder, unspecified
CPT/HCPCS: 99213

== ENCOUNTER → 2023-03-05 10:28 | Outpatient (BNVA) | payer MEDICARE, MEDICAID, SELFPAY | PROVIDERS: Visit Provider Urology | DX: N40.1 Benign prostatic hyperplasia with lower urinary tract symptoms (principal); N13.8 Other obstructive and reflux uropathy; N31.9 Neuromuscular dysfunction of bladder, unspecified; N32.81 Overactive bladder | CPT/HCPCS: 51798; 99212 ==

== ENCOUNTER 2023-12-20 09:39 | Outpatient (AMB) | payer MEDICARE, MEDICAID, SELFPAY ==
--- NOTE | 2023-12-20 09:55 | A.OFFVIS_ITS ---
Intake Visit Reasons: PVR Follow Up(No psa) Intake Note: Patient is Present for PVR/ Urology Med: Tamsulosin, Bethanechol, Finasteride Antibiotic Allergy: None Blood Thinner:None Last PVR: 0 Todays PVR: 32 Aluminum Hydroxide Process Operator Required: No Accompanied by: Self / Same As Patient Allergies No Known Allergies Allergy (Verified 09/04/22 11:37) Medication List - Last Reconciled 12/20/23 by Jose Alberto Mccarty MD amlodipine 1 tab PO DAILY atenolol 1 tab PO DAILY atorvastatin 1 tab PO BEDTIME benztropine 1 tab PO BID bethanechol chloride 50 mg PO BID 90 days buspirone 1 tab PO DAILY@0800,1700 clozapine 1 tab PO DAILY clozapine 3 tabs PO BEDTIME clozapine 2 tabs PO BEDTIME divalproex (Depakote) 1 tab PO BEDTIME divalproex (Depakote) 1 tab PO BEDTIME finasteride 5 mg PO DAILY 90 days hydroxyzine pamoate 25 mg PO BID naloxone 4 mg/actuation (Narcan) 4 mg intranasal Q3M PRN polyethylene glycol 3350 17 grams PO DAILY PRN tamsulosin 0.4 mg PO BEDTIME tiotropium bromide (Spiriva with HandiHaler) 1 cap inhalation DAILY trazodone 50 - 150 mg PO BEDTIME PRN HPI Comments Details: Lance THOMSON is a very pleasant male. He is a patient of Dr Blue. 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 On exam is soft, mobile, approximately 3 in consistent with lipoma. Refer general surgery No showed for orthopedics after referral for right hip pain Lower Urinary Tract Symptoms: Current visit is for further evaluation of, lower urinary tract symptoms. Current treatment includes medication, alpha gem and bladder stablizer. Prostate Symptom Score 1/20 , Mild (0-8), Bother 3. Prostate volume 30-50gm. 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 He presents for further evaluation of elevated PSA, - 10/29 PCP with nodular prostate. Laboratory investigations include 10/30 PSA 3.0. Symptoms include incomplete emptying, weak stream, nocturia, x 2, , and are worsening 10/31 , and are stable. Therapeutic plan will be continued surveillance. [facility] Medical History Abnormal CT of liver Back pain Feeling of incomplete bladder emptying H/O urinary frequency Mood swings Neurogenic bladder Nocturia Polysubstance abuse Prostate nodule Urinary retention with incomplete bladder emptying Weak urinary stream Family History Mother Colon cancer Emphysema lung Social History Household Members: Other Housing: Other Housing Other:: boarding house Do you presently have visiting nurse or other home services: Yes Unable to assess alcohol history related to: Refusing to respond Alcohol intake: current Patient Tobacco Use Status: Current everyday Tobacco user Tobacco use type: Cigarette Cigarettes Per Day: 4 Second Hand Smoke Exposure: No Substance Use Type: Crack/Cocaine and Opiates service: No Current occupational status: unemployed and disabled Review of Systems Const Denies chills and Denies fever(s) Card Reports no additional complaints and Denies syncope Resp Denies cough GI Denies abdominal pain and Denies heartburn Reports as per HPI and Denies change in libido Neuro Denies syncope Psych Denies change in libido Endo Denies change in libido Physical Exam Const General: cooperative, healthy appearing, comfortable and no acute distress Orientation/consciousness: patient oriented x3 HEENT Face and sinus: Yes normal facial exam Mouth: moist mucous membranes Neck Neck: Yes normal visual inspection, Yes full ROM and Yes trachea midline Chest Chest palpation & inspection: normal inspection of the chest Resp Effort & Inspection: normal respiratory effort, able to speak in complete sentences and no respiratory distress GI Inspection: Yes normal to inspection Back/Spine/Pelvis Cervical Spine: normal cervical lordosis Thoracic/Lumbar Spine: thoracic and lumbar spine normal to inspection Skin General skin exam: no rashes or lesions noted Neuro General: patient oriented x3, gait normal, tone normal and moves all extremities Extrem General: Yes normal to inspection and Yes capillary refill normal Office Procedures Post Void Residual Post Residual Void Post Void Residual (PVR): 32 33620-[place] Void Residual by ultrasound Assessment & Plan Assessment & Plan (1) Lump in neck: Code(s): R22.1 - Localized swelling, mass and lump, neck Category: Medical (2) Neurogenic bladder: Code(s): N31.9 - Neuromuscular dysfunction of bladder, unspecified Category: Medical (3) Weak urinary stream: Code(s): R39.12 - Poor urinary stream Category: Medical Plan Twelve month follow-up Orders: Orders AMB Post Void Residual by ultrasound Today N31.9 - Neuromuscular dysfunction of bladder, unspecified Referrals General Surgery Referral R22.1 - Localized swelling, mass and lump, neck Medications: New finasteride 5 mg PO DAILY 90 days 90 tabs 3RF R22.1 - Localized swelling, mass and lump, neck Patient Instructions: Imaging studies, laboratory and physical exam results were discussed and reviewed in detail. No major barriers to patient understanding were identified. An opportunity to ask questions regarding the treatment plan was provided. All questions were answered. The patient expressed understanding and agreement with the above treatment plan. The patient is aware they should contact our office by phone for worsening of their current condition or the appearance of new urologic symptoms. Compliance is encouraged with any medications and followup testing that is ordered. It is a privilege to participate in the urologic care of your patient. If you have any questions or concerns regarding treatment for the above conditions, or other urologic issues, please do not hesitate to contact me. The office telephone contact is [phone]. This note is constructed using voice recognition software. While every effort has been made to ensure accuracy chemical tester errors may have been included. Yours sincerely, Dr Jose Alberto Mccarty MD, [facility] - Urology Providers of Expert, Compassionate Care for the Genitourinary System Coding Level of Care Code Est Pt Level 4 (16109) Diagnoses Lump in neck R22.1 Neurogenic bladder N31.9 Weak urinary stream R39.12 CPT Codes Post Residual Void - PVR CPT Code: 22262-Ggfa Void Residual by ultrasound ([id number])
== END 2023-12-20 10:28 | disposition home or self-care (01) ==
PROVIDERS: PCP Internal Medicine; Visit Provider Urology
DX: R22.1 Localized swelling, mass and lump, neck (principal); N31.9 Neuromuscular dysfunction of bladder, unspecified; R39.12 Poor urinary stream
CPT/HCPCS: 99214

== ENCOUNTER → 2023-12-20 09:39 | Outpatient (BNVA) | payer MEDICARE, MEDICAID, SELFPAY | PROVIDERS: PCP Internal Medicine; Visit Provider Urology | DX: N31.9 Neuromuscular dysfunction of bladder, unspecified (principal); R39.12 Poor urinary stream; R35.1 Nocturia; R33.9 Retention of urine, unspecified; R22.1 Localized swelling, mass and lump, neck | CPT/HCPCS: 51798; 99212 ==